=== PATIENT | female | born 1990 | race Caucasian/White ===

== ENCOUNTER 2018-09-30 09:00 | Outpatient (RCR) | payer MEDICAID, SELFPAY ==
--- NOTE | 2018-09-30 09:03 | BH.SGPN.GN ---
Behaviors/Verbalizations/Mental Status: []Client alert and oriented, casual dress, hygiene tended to. Eye contact good. Motor activity appropriate. Speech within normal limits. Affect constricted, mood anxious. Thoughts linear, logical, no signs of hallucinations or delusions. Reviewed client?s symptom tracker, no signs of suicidal ideation, plan, or intent as of today. Client Response/Progress/Benefit: []Pt was a passive participant, attentive to others and shared thoughts and feelings when elicited by therapist. Emotion for today is anxious/nervous. Pt reported she is seeking help through IOP because she feels constantly anxious and stress when she is around her boyfriend. Pt shared she feels her boyfriend is controlling and narcissistic. Pt stated she has noticed when she is not around her boyfriend she feels less anxious, but stated she has left him before however he will make her feel guilty so she gets back with him. Pt shared she recognizes this relationship is toxic and impacts her mental health but struggles with maintaining boundaries. Pt's first day in IOP. Pt seemed to benefit from expressing thoughts and being in a supportive environment. Continued IOP level of care recommended to increase self-awareness, increase healthy boundaries and prevent decompensation. Narrative Note: []
--- NOTE | 2018-09-30 10:07 | BH.SGPN.GN ---
Behaviors/Verbalizations/Mental Status: []Client alert and oriented, disheveled appearance. Eye contact good. Motor activity appropriate. Speech within normal limits. Affect constricted, mood depressed. Thoughts linear, logical, no signs of hallucinations or delusions. Client Response/Progress/Benefit: []Client responded well to session, engaged throughout activity, occasionally contributing to discussion. Provided insight regarding topic of social supports. Client shared there are barriers to seeking social supports such as lack of healthy supports and fear. However, there are also consequences of not having a support system such as feeling overwhelmed and ?mental health manifesting in physical ways.? Identified benefits of social support as not feeling alone and less stress. Client was engaged during the group activity and did well to assimilate on her first day. Client communicated with peers and made connections to her daily life. Appeared to benefit from gaining awareness of barriers that keep people from seeking social support as well as connecting with peers. Client?s first day of IOP. No progress to document. Client to continue IOP to prevent decompensation, increase healthy supports, and reduce severity of symptoms.
--- NOTE | 2018-09-30 13:31 | BH.COMM ---
Communication Note - Communication with Client Communication Note: Therapist followed up with client after group sessions ended as it was client's first day in IOP. Therapist answered client's questions and provided emotional validation and support.
--- NOTE | 2018-10-01 11:08 | BH.SGPN.GN ---
Behaviors/Verbalizations/Mental Status: [Pt eye contact good, casually dressed, motor activity appropriate, speech normal rate and tone, mood depressed, congruent affect, thoughts linear and intact - some evidence of rumination AEB returning to relationship concerns previously addressed, no evidence of delusions or hallucinations] Client Response/Progress/Benefit: [Pt receptive of session, provided input to discussion and engaged with fellow participants throughout. Pt actively listening as group made connections between barriers faced in the challenge activity and those present in utilizing social supports in daily life. She identified a major barrier for her is patience. Did well to provide some contribution to discussion about the different types of support and benefits of each type. She worked with the group to identify strategies for improving development of new supports and utilization of current supports. Pt seemed to benefit from discussion on how to increase supports from a support person who does not understand or is unaccepting of mental health. She displayed progress in identifying a type of support she would like to improve upon and creating actionable steps to promote follow-through. Indicated wanting to improve personal support to increase self-confidence and understanding of her own feelings. Expressed plans to do so by identifying and reaching out to new supports or old supports she would benefit from reconnecting with. Client to continue IOP level of care to prevent decompensation, improve symptom management, as well as increase self-confidence.] Narrative Note: []
--- NOTE | 2018-10-02 09:10 | BH.SGPN.GN ---
Behaviors/Verbalizations/Mental Status: [] Eye contact is good. Motor activity is appropriate. Appearance is casual. Speech is Appropriate. Mood is anxious. Affect is congruent. Thoughts are linear and logical. No evidence of psychosis. Reviewed daily check in sheet and no reports of suicidal ideations or intent. Client Response/Progress/Benefit: []p Pt was an active participant in group discussion. Emotion for today is anxious. Shared that she was anxious all day yesterday. Went to local [employer] with children and was unable to relax long enough to have any fun. Reports overwhelmed with people, the environment, and worry about kids getting hurt or abducted. Reports that she will ruminate extensively on worst case scenarios till it consumes her. Discussed her anxiety and the impact it has had on her life in more detail to the group. Group provided support and encouragement which pt benefited from. She discussed some relief since entering IOP stating its nice to know that I'm not alone. Will continue in IOP to prevent decompensation, stabilize mood, and increase coping skills. Narrative Note: []
--- NOTE | 2018-10-02 10:10 | BH.SGPN.GN ---
Behaviors/Verbalizations/Mental Status: []Client alert and oriented, casually dressed and groomed. Eye contact good. Motor activity appropriate. Speech within normal limits. Affect congruent to topic being discussed, mood anxious. Thoughts linear, logical, no signs of hallucinations or delusions. Client Response/Progress/Benefit: []Client responded well to session, providing occasional input. Client contributed to the discussion of how life is made of up different internal and external positive and negative forces and how those forces impact one?s mental health. Client shared it is easier to focus on external forces ?because we can blame them.? Client stated waiting for forces to change on their own ?makes you feel worse over time.? Client stated taking personal responsibility is needed for personal growth. Client identified examples of positive forces including healthy coping skills and personal effort. Client identified examples of negative forces to be toxic people and unmanaged mental health. Client participated in the activity and was both assertive and receptive to peers. Client appeared to benefit from gaining awareness of how positive and negative forces can cause growth. ?Client?s second day in IOP. Client report benefitting from connecting with peers and increasing awareness. However, client continues to report depression and anxiety symptoms that impact her functioning.
--- NOTE | 2018-10-02 11:14 | BH.SGPN.GN ---
Behaviors/Verbalizations/Mental Status: [Client alert and oriented, casually dressed and appropriate groomed. Eye contact good. Motor activity appropriate. Speech within normal limits. Affect congruent and mood euthymic. Thoughts linear, logical, no signs of hallucinations or delusions.] Client Response/Progress/Benefit: [Client willing to participate in activity and provided some input throughout. Pt did well to follow direction, give some input, and encourage fellow participants in group. Pt worked with group to identify positive and negative forces influencing group progress in the activity and did well to relate this back to daily life. Client completed reflection worksheet which identified positive and negative forces that impact mental wellness. Client noted positive forces as: her children, positive attitude, willingness to ask for help, and treatment. Identified negative forces as: negative thoughts, poor boundaries, isolation, toxic relationships, and lack of awareness. Client seemed to benefit from increased awareness of personal positive and negative forces in life and the impact they have on mental health and wellness. Progress noted in pt ability to identify positive forces of resilience factors supporting progress. Client to continue IOP level of care to continue to promote healthy change behaviors, improve ability to regulation emotions, and prevent decompensation.] Narrative Note: []
--- NOTE | 2018-10-04 10:30 | BH.SGPN.GN ---
Behaviors/Verbalizations/Mental Status: []Client alert and oriented, disheveled appearance. Eye contact good. Motor activity appropriate. Speech within normal limits. Affect congruent, mood depressed. Thoughts linear, logical, no signs of hallucinations or delusions. Client Response/Progress/Benefit: []Client responded well to session, active participant. Client appeared to connect with the topic of personal pitfalls and how they can prevent mental health progress. Client identified barriers to making mental health progress such as ignoring warning signs, lack of support, and minimizing symptoms. Client shared examples of personal pitfalls as unrealistic expectations and toxic supports. Client reported in order to overcome personal pitfalls ?you need motivation.? Client stated she is tired of being stuck and is realizing ?no one can make changes but me.? Client participated in the group activity and was able to use in the moment coping skills. Client reflected that self-awareness and communication are both needed in order to avoid falling into personal pitfalls. Client appeared to benefit from increasing self-awareness and applying in the moment coping. Client?s first week in IOP. Client reporting increased self-awareness. Client to continue IOP to prevent decompensation and reduce intensity of symptoms.
--- NOTE | 2018-10-04 11:30 | BH.SGPN.GN ---
Behaviors/Verbalizations/Mental Status: []Client alert and oriented, casually dressed and groomed. Eye contact good. Motor activity appropriate. Speech within normal limits. Affect constricted, mood depressed. Thoughts linear, logical, no signs of hallucinations or delusions. Client Response/Progress/Benefit: []Provided input throughout group discussion, was attentive and was seen nodding in agreement with group suggestions. Pt completed a worksheet where she identified her own personal pitfalls. Personal pitfalls included: lack of communication, needing to be right, high expectations of self, distorted thoughts, and giving up when things get hard. Group worked together to identify strategies to overcome personal and general pitfalls which included: actively participating in mental health treatment, setting realistic expectations, positive self-talk, utilizing support system, reflection on past experiences, identifying coping skills that are effective and not effective, reframing, and challenging negative thoughts. Client identified other strategies that she can use to be understanding her emotions, breathing, and being patient. Benefited from identifying personal and general pitfalls and strategies to over these pitfalls. Will continue in IOP to stabilize mood. Staff continues to provide support and education regarding depression and anxiety as well as encourage generalization of healthy skills. Narrative Note: []
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
--- NOTE | 2018-10-04 15:16 | BH.MTP_ITS ---
[facility] Treatment Plan - Patient Information Program Physician:: Tj Howe Primary Therapist:: Martina Mccord - Psychiatric Diagnoses Psychiatric Diagnoses:: Major depression, recurrent, severe F 33.2; generalized anxiety disorder; somatic symptom disorder; PTSD; illness anxiety disorder; Borderline personality disorder Diagnosis Code(s):: F33.2 - Estimated LOS Estimated LOS (in weeks):: 6 Problem/Goal #1 - Problem/Goal #1 Stated Goal:: Client will increase emotional regulation and reduce intensity and duration of anxiety symptoms. Description of Barriers: Client identifies her current relationship with her boyfriend as toxic but shares feeling unable to leave him which may negatively impact client's mental health and functioning. Client has a history of complex trauma and childhood adverse experiences, and per her report, she has never received trauma therapy or worked through her trauma. Client continues to experience mood dysregulation, fear of being alone, and hypervigilance. Client struggles with recognizing her warning signs and triggers. Client reports guilt about setting boundaries and how her mental health has impacted her children. Client states she sees herself doing some of the same parenting techniques her parents used on her, and client is worried she will continue the cycle. Client shared limited social supports besides her sister which increases isolation and depressed mood. Additionally, client has a blood clotting disorder and healthy anxiety about herself and her family. Functional Impact: Client is a 28-year-old female with a history of depression, anxiety, and PTSD. Client presents to [facility] with worsening depression and anxiety since 05/2018. Client reports significant worrying, fear of being alone, panic attacks, and passive thoughts of . Client shared she is not currently able to sleep alone in her house due to fear and anxiety. Client endorses erratic appetite, worthlessness, hopelessness, decreased sleep, lack of motivation, and rumination. Client reports long-standing history of anger issues and emotional dysregulation. Client shared she is often worried about her health and fears she will from some medical issue. Client reports her symptoms are impacting her ability to function at her baseline as well as her social, occupational, and familial functioning. Goal Relevant Strengths/Supports: Client presents as a kind, empathetic, and receptive individual who reports motivation to change her mental health and functioning. Client shared I want to change I don't want to keep living like this. Client reported she is willing to learn and try new coping skills. Client demonstrates resilience as she has been through numerous adverse experiences in her life. Client's sister is supportive and encourages client to improve her mental health. Client shared her tricia is a strong support. Client has an outpatient therapist and is open to additional mental health resources. - Objectives Objective #1 Stated Objective: Client will identify 2-3 cognitive distortions or mistaken beliefs that lead to rumination and health anxiety and learn 2-3 ways to manage these thoughts to reduce symptoms. Interventions: Therapist will provide education on the most common cognitive distortions and teach client the connection between thoughts, emotions, and feelings. Therapist will assist client in identifying, challenging, and replacing dysfunctional thoughts with positive, more realistic thoughts. Therapist will use CBT and DBT techniques to help client gain awareness of thinking errors and learn how to more effectively handle negative thoughts. Discharge Criteria: Client will have accomplished this goal when can identify at least 2 cognitive distortions and at least 2 coping skills to manage negative thoughts. Target Date: 11/11/18 Review Date: 10/30/18 Status: open Objective #2 Stated Objective: Client will be able to explain common stress reactions and symptoms related to trauma and learn 2-3 coping skills to manage symptoms. Interventions: Therapist will provide education on trauma and explain impact trauma can have on development. Will help client explore personal symptoms and warning signs of stress and trauma. Therapist will teach client coping skills to improve emotional regulation, mindfulness, and distress tolerance. Therapist will help client get connected with additional trauma-focused services, should client agree. Discharge Criteria: Client will have met this objective when can identify common stress reactions to trauma and report using at least 2 coping skills to manage symptoms. Target Date: 11/11/18 Review Date: 10/30/18 Status: open Objective #3 Stated Objective: Client will identify 2-3 anxiety triggers and 2 calming coping skills to use when feeling anxious to reduce anxiety as shown by reduced DSM-5 cross cutting scores. Interventions: Therapist will help client increase awareness of anxiety triggers and educate client on the ways anxiety impacts overall health. Therapist will teach client various calming strategies to promote emotional regulation and reduction of anxiety. Therapist will discuss the importance of self-care to avoid burnout and reduce stress while helping client establish clearer boundaries with supports. Discharge Criteria: Client will have accomplished this goal when can report at least 2 triggers for anxiety and state using 2 calming strategies to manage symptoms. Client will have also accomplished this goal when her DSM-5 scores have reduced. Target Date: 11/11/18 Review Date: 10/30/18 Status: open Problem/Goal #2 - Problem/Goal #2 Stated Goal:: Client will reduce depression, anhedonia, and low motivation due to Major Depressive Disorder through the Intensive Outpatient Program. Description of Barriers: Client identifies her current relationship with her boyfriend as toxic but shares feeling unable to leave him which may negatively impact client's mental health and functioning. Client has a history of complex trauma and childhood adverse experiences, and per her report, she has never received trauma therapy or worked through her trauma. Client continues to experience mood dysregulation, fear of being alone, and hypervigilance. Client struggles with recognizing her warning signs and triggers. Client reports guilt about setting boundaries and how her mental health has impacted her children. Client states she sees herself doing some of the same parenting techniques her parents used on her, and client is worried she will continue the cycle. Client shared limited social supports besides her sister which increases isolation and depressed mood. Additionally, client has a blood clotting disorder and healthy anxiety about herself and her family. Functional Impact: Client is a 28-year-old female with a history of depression, anxiety, and PTSD. Client presents to [facility] with worsening depression and anxiety since 05/2018. Client reports significant worrying, fear of being alone, panic attacks, and passive thoughts of . Client shared she is not currently able to sleep alone in her house due to fear and anxiety. Client endorses erratic appetite, worthlessness, hopelessness, decreased sleep, lack of motivation, and rumination. Client reports long-standing history of anger issues and emotional dysregulation. Client shared she is often worried about her health and fears she will from some medical issue. Client reports her symptoms are impacting her ability to function at her baseline as well as her social, occupational, and familial functioning. Goal Relevant Strengths/Supports: Client presents as a kind, empathetic, and receptive individual who reports motivation to change her mental health and functioning. Client shared I want to change I don't want to keep living like this. Client reported she is willing to learn and try new coping skills. Client demonstrates resilience as she has been through numerous adverse experiences in her life. Client's sister is supportive and encourages client to improve her mental health. Client shared her tricia is a strong support. Client has an outpatient therapist and is open to additional mental health resources. - Objectives Objective #1 Stated Objective: Client will improve self-care,boundaries, and increase social activities to at least one additional activity per week. Interventions: Therapist will help client explore social connection opportunities, and as well as activities that promote accomplishment, enjoyment, and closeness. Therapist will provide education on maintenance cycles for depression and help client learn how to break unhealthy maintenance cycles. Therapist will teach client about healthy versus unhealthy supports and how to set boundaries to improve mental wellbeing. Therapist will encourage client to seek positive social support. Discharge Criteria: Client will have achieved this objective when can identify attending at least one social activity of interest weekly and report increased boundary setting. Target Date: 11/11/18 Review Date: 10/30/18 Status: open Objective #2 Stated Objective: Client will learn and utilize 2-3 healthy coping strategies to better manage depressive symptoms and anger as shown by reduced DSM-5 scores. Interventions: Through group and individual sessions, therapist will help client identify triggers and warning signs of depression and emotional dysregulation including emotional, physical, and behavioral changes. Therapist will teach client various coping skills to manage her symptoms and give client tangible resources to use to regulate emotions. Therapist will use cognitive restr ucturing techniques and help client gain awareness of negative thoughts that reinforce depressive cycles. Therapist will help client incorporate behavioral activation and assist client in setting SMART goals. Discharge Criteria: Client will have met this goal when she can report learning and using at least 2 coping skills to manage depressive symptoms and show a reduction in DSM-5 symptoms. Target Date: 11/11/18 Review Date: 10/30/18 Status: open
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
--- NOTE | 2018-10-04 15:18 | BH.DR.ITP ---
Initial Treatment Plan - Patient Information Visit Information: ADMISSION DATE: 09/30/18 EXPECTED LOS: 4-6 weeks Diagnoses:: Major depression; GILMAR; somatic symptom disorder; BPD - Problems/Symptoms Problem #1:: depression Symptom:: sadness, anhedonia; lack of motivation and energy Problem #2:: anxiety Symptom:: worry, feeling overwhelmed, stressed out, feeling anxious Problem #3:: somatic symptom disorder Symptom:: constantly worried about her health, dying, going to doctors, overwhelmed by health concerns
--- NOTE | 2018-10-07 09:05 | BH.SGPN.GN ---
Behaviors/Verbalizations/Mental Status: [] Eye contact is good. Motor activity is appropriate. Appearance is casual. Speech is Appropriate. Mood is anxious. Affect is congruent. Thoughts are linear and logical. No evidence of psychosis. Reviewed daily check in sheet and no reports of suicidal ideations or intent. Client Response/Progress/Benefit: [] Pt was an active participant in group discussion. Emotion for today is anxious. Shared that she spent some time with significant other this past weekend which was positive. She was able to complete activities w/o overwhelming anxiety however her anxiety did limit herself in certain situations. Discussed a family stressor regarding her niece which caused increased stress, worry, and anger. Also led her to limit her daughter's interaction with niece. Pt admitted to getting angry and protective of her family however believes that she managed her emotions better than she would have in the past. Discussed some coping skills that she utilized to ensure that her emotions did not lead to unhealthy reactions and behaviors. Benefited from group support and encouragement. Will continue in IOP to maintain safety, prevent decompensation, and stabilize mood. Narrative Note: []
--- NOTE | 2018-10-07 10:05 | BH.SGPN.GN ---
Behaviors/Verbalizations/Mental Status: []Pt eye contact good, casually dressed, motor activity appropriate, speech normal rate and tone, mood dysthymic, constricted affect, thoughts linear and intact, no evidence of delusions or hallucinations. Client Response/Progress/Benefit: []Client passive participant, providing limited input during discussion, however appeared to attentively listen to peers. Client nodded that viewing situations as impossible can negatively impact one?s mental health. Client agreed with peers comments that seeing things as impossible sets you up to not try new things or to overcome difficult situations. Client identified sometimes she views raising her kids right as an impossible situation. client agreed with others comments that it seems impossible because many people have different definitions of what is right in regards to raising children. Client engaged in the group activity and the group did not complete the activity during second group. Despite lack of success, client did not appear to fall into fixed thinking pitfalls and stayed engaged. Client appeared to benefit from gaining awareness how viewing situations as impossible can negatively impact mental health progress. Client to continue IOP level of care to stabilize moods, increase healthy coping, and prevent decompensation. Narrative Note: []
--- NOTE | 2018-10-07 11:10 | BH.SGPN.GN ---
Behaviors/Verbalizations/Mental Status: [Client maintained good eye contact, casually dressed and appropriate grooming, motor activity appropriate, speech normal rate and tone, mood dysthymic and anxious, affect congruent, thoughts linear, logical, no evidence of delusions or hallucinations.]] Client Response/Progress/Benefit: [Pt attentive, did well to participate in discussion and growth mindset reflection activity. She provided positive feedback and asked relevant questions throughout. Pt brainstormed with the group on how fixed mindset thoughts experienced in the activity impacted ability to complete the task at hand. Pt indicated thoughts of ?this is too stressful? caused her to become frustrated and linked this with decreased effort. Worked to identify important components of a growth mindset such as improving ability to set healthy boundaries rather than being all or nothing with them. Pt expressed having difficulties in using growth mindset thoughts, however did well to apply cognitive restructuring to reframe fixed thoughts of ?I?m always going to be sick? with growth mindset thought of ?I can continue to learn to love myself.?. Benefitted from discussing benefits of growth mindset and strategies for reframing fixed thoughts. Progress in pt ability to challenge negative thoughts about self. Continued IOP tx recommended to prevent decompensation, increase application of thought challenge skills and improve self-esteem, and continue to decrease intensity and severity of depression.] Narrative Note: []
--- NOTE | 2018-10-09 09:05 | BH.SGPN.GN ---
Behaviors/Verbalizations/Mental Status: [] Eye contact is good. Motor activity is appropriate. Appearance is casual. Speech is Appropriate. Mood is irritable. Affect is congruent. Thoughts are linear and logical. No evidence of psychosis. Reviewed daily check in sheet and no reports of suicidal ideations or intent. Client Response/Progress/Benefit: [] Pt was an active participant in group discussion. Emotion for today is excited however reports being burnt out with work and stressors. Attempting to set boundaries with SO however lieberman not believe that this is going well. Increased conflict. Feels overwhelmed at home and work with little time for herself. Group provided feedback on trying self-care strategies however pt views these as selfish. Group challenged this belief. Pt appeared receptive. Continued anxiety, fear, and irritability which are impacting daily functioning and responsibilities. Utilizes newly learned skills at time however not consistent. Benefited from group feedback. Will continue in IOP to increase coping skills for depression/anxiety and prevent decompensation. Narrative Note: []
--- NOTE | 2018-10-09 10:09 | BH.SGPN.GN ---
Behaviors/Verbalizations/Mental Status: []Client alert and oriented, casually dressed and groomed. Eye contact good. Motor activity appropriate. Speech within normal limits. Affect congruent, mood dysthymic. Thoughts linear, logical, no signs of hallucinations or delusions. Client Response/Progress/Benefit: []Pt receptive of session AEB pt listening to others, taking notes, and providing input at times. Pt appeared to connect with various definitions of resilience provided by the group as well as ideas for how resilience can have positive impacts mental health and wellness. Pt stated when she is angry sometimes she is inflexible with her thinking which results in her breaking. Pt engaged in small group discussion about the various strategies that can help strengthen one's resilience. Pt appeared to connect with others comments about importance of self-awareness to build resilience because if know personal barriers then know what you can do to improve situation. Pt seemed to benefit from increased awareness of various components that can contribute to increased resilience. Continued IOP recommended to prevent decompensation, increase healthy coping skills, and decrease depression. Narrative Note: []
--- NOTE | 2018-10-09 11:12 | BH.SGPN.GN ---
Behaviors/Verbalizations/Mental Status: []Client alert and oriented, casually dressed and groomed. Eye contact good. Motor activity appropriate. Speech within normal limits. Affect congruent, mood euthymic. Thoughts linear, logical, no signs of hallucinations or delusions. Client Response/Progress/Benefit: []Client responded well to session, positive contributions. Client engaged in the group activity. Client reported at first, she was thought the group could not accomplish the goal. However, the group stayed resilient and used different ideas to be successful. Client shared ?we didn?t give up? which can also help people be resilient in their daily lives. Client was given a stress ball as a reminder of resilience. On her stress ball, client wrote ?If God gets you to it, he?ll get you through it.? Client shared this will remind her to have hope and optimism. Client reported she wants to work on increasing her acceptance that change is a part of living to further improve personal resilience. Client shared she will try to work on this by setting small goals and practicing change. Client appeared to benefit from identifying personal resilience factors. Progress noted as client reports increased self-awareness of barriers, but she continues to struggle with ambivalence to change. Client to continue IOP to prevent decompensation and increase positive supports.
--- NOTE | 2018-10-10 09:05 | BH.SGPN.GN ---
Behaviors/Verbalizations/Mental Status: []Client alert and oriented, casually dressed and groomed. Eye contact good. Motor activity appropriate. Speech within normal limits. Affect constricted, mood tired, euthymic. Thoughts linear, logical, no signs of hallucinations or delusions. Reviewed client?s symptom tracker, no risk for suicidal ideation, plan, or intent as of 10/10/18. Client Response/Progress/Benefit: []Client responded well to session, providing emotional support to peers. Client reports feeling ?tired, but positive? today. Client?s mental health wins include going to work today, learning new skills, her kids feeling better, and client feeling more optimistic. Client?s current stressor is she is trying to quit smoking ?cold turkey? as she realizes how much smoking is impacting her physical and mental health. The group provided client with ideas to quit smoking and therapist informed client of the smoking cessation group at [facility]. Client was receptive to the feedback and shared she will try out the ideas. Client appeared to benefit from reflecting on wins and receiving feedback. Progress noted as client reports following through with her goals and using healthier coping skills. Client to continue IOP as she continues to struggle with boundary setting and managing emotions consistently.
--- NOTE | 2018-10-10 11:20 | BH.SGPN.GN ---
Behaviors/Verbalizations/Mental Status: []Client alert and oriented, casually dressed and groomed. Eye contact good. Motor activity appropriate. Speech within normal limits. Affect congruent, mood dysthymic. Thoughts linear, logical, no signs of hallucinations or delusions. Client Response/Progress/Benefit: []Client was an active participant throughout session, providing good feedback and encouragement during the activity. Client worked with the group to complete the challenge activity. Client stated she wanted to quit during the challenge because feeling overwhelmed and stressed. Client reported she chose to stick with the challenge activity because wanted to help her teammates. Group identified barriers of stress management to include taking on the biggest stressor at once, not asking for help, and avoidance. Client actively listening during discussion about the 4 A's of managing stress. Client seemed to benefit from increased awareness of the impact of stress on mental health and increasing repertoire of stress management strategies. Will continue IOP tx to increase healthy coping, challenge thoughts and prevent decompensation.
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
--- NOTE | 2018-10-11 09:05 | BH.SGPN.GN ---
Behaviors/Verbalizations/Mental Status: []Client alert and oriented, disheveled appearance. Eye contact good. Motor activity appropriate. Speech within normal limits. Affect congruent, mood euthymic, anxious. Thoughts linear, logical, no signs of hallucinations or delusions. Reviewed client?s symptom tracker, no risk for suicidal ideation, plan, or intent as of 10/11/18. Client Response/Progress/Benefit: []Client responded well to session, providing positive support to peers. Client reports feeling ?a pinch of anxious? today. Client shared she feels anxious because ?I know I have to be better with my health? which is overwhelming to client. Client is attempting to improve her eating habits and reduce smoking. The group helped client talk about the importance of setting small goals. Client?s mental health wins included using in the moment coping skills to manage anxiety and having a conversation with her boyfriend about client?s needs. Client shared she is starting to realize ?I need to change without him.? Client appeared to benefit from connecting with peers. Progress noted as client?s mood has improved since last week. However, client continues struggle with her current unhealthy relationship which may hinder progress.
--- NOTE | 2018-10-11 10:18 | BH.SGPN.GN ---
Behaviors/Verbalizations/Mental Status: []Client alert and oriented, casually dressed and groomed. Eye contact fair. Motor activity appropriate. Speech within normal limits. Affect congruent to topic being discussed, mood euthymic. Thoughts linear, logical, no signs of hallucinations or delusions. Client Response/Progress/Benefit: []Client responded well to session, attentive and participating in small group discussion. Group identified the benefits to setting boundaries as well as the consequences of not setting healthy boundaries. Client stated she is getting better at saying no to others because recognizes the negative impact saying yes to everyone has on her mental health. Client reported she does believe it is her responsibility to hold her family together, which does lead to client not setting boundaries at times. Client engaged during discussion of the different types of boundaries and engaged in the self-assessment activity. Client seemed to benefit from increased awareness how poor boundaries can negatively impact mental health. Client to continue IOP tx to continue use of healthy coping skills, prevent decompensation, and challenge distorted thoughts. Narrative Note: []
--- NOTE | 2018-10-11 11:24 | BH.SGPN.GN ---
Behaviors/Verbalizations/Mental Status: [Client alert and oriented, casual dress, hygiene appropriate. Eye contact good. Motor activity appropriate. Speech within normal limits. Affect congruent, mood euthymic. Thoughts linear, logical, no signs of hallucinations or delusions. ] Client Response/Progress/Benefit: [Pt responded well to session, semi-active participant AEB willingness to provide input and connect with insights provided by fellow participants throughout. Pt did well to engage in the boundary self-assessment activity and worked with group to further process. Pt discussed that she has been becoming much more aware of how her difficulties in maintaining healthy boundaries with toxic supports has impacted her anxiety and reinforced negative thoughts. Noted that she has been working on improving boundary setting skills but continues to struggle with consistency. Appeared to benefit from group discussion on strategies for further improving personal boundaries. Identified wanting to improve her ability to set and maintain healthy boundaries with others, specifically in regard to reducing time spent with unhealthy supports and improving her ability to say ?no?. Progress noted in pt ability to identify impact of current boundaries on mental health progress and emotion regulation skills. Pt to continue IOP tx to maintain gains made, improve communication and boundary setting skills, and continue to promote healthy change behaviors.] Narrative Note: []
--- NOTE | 2018-10-14 10:25 | BH.SGPN.GN ---
Behaviors/Verbalizations/Mental Status: []Client alert and oriented, causally dressed and groomed. Eye contact good. Motor activity appropriate. Speech within normal limits. Affect constricted, mood dysthymic. Thoughts linear, logical, no signs of hallucinations or delusions. Client Response/Progress/Benefit: []Client engaged in session AEB client contributing input during discussion and listening attentively to others. Client stated when faced with a difficult moment how one thinks about the situation can impact the outcome. Connected with discussion on how coping with external crisis by using unhealthy coping skills could lead to personal crisis. Client completed the personal warning signs worksheet and identified crisis warning signs to include: increased racing thoughts and isolation. Benefited from group by increasing awareness of crisis and personal warning signs. Will continue IOP tx to increase healthy coping and prevent decompensation. Narrative Note: []
--- NOTE | 2018-10-14 11:25 | BH.SGPN.GN ---
Behaviors/Verbalizations/Mental Status: []Client alert and oriented, casually dressed and groomed. Eye contact good. Motor activity appropriate. Speech within normal limits. Affect congruent, mood euthymic. Thoughts linear, logical, no signs of hallucinations or delusions. Client Response/Progress/Benefit: []Client responded well to session as evidenced by client participating when prompted and listening attentively to others. Client identified her warning signs for crisis and gained further awareness of her earliest warning signs. Client?s top three early warning signs were increased anxiety, increased body temperature, and ?feeling panicky.? Client recognized that awareness of these warning signs can prevent further crisis and help client utilize healthy coping skills to break the cycle. Client created a crisis action plan to help client better manage warning signs for crisis. Client?s plan included coping skills such deep breathing, positive self-talk, and healthy distractions. Client selected three items that will help her remember these crisis interventions including a pipe stripper, flower, and a clothespin. Client appeared to benefit from creating a crisis action plan and increasing her self-awareness. Client to continue IOP to increase repertoire of healthy coping skills and increase emotional regulation.
--- NOTE | 2018-10-14 15:04 | BH.MDN_ITS ---
Multi-Disciplinary Note - Note 45-min Individual Time Started:: 09:21 Date: 10/14/18 Purpose of session/treatment goals addressed:: The purpose of this session was to process current symptoms, stressors, and triggers. Another goal was to practice grounding coping skills. Other topics included relationships. Eye Contact:: Good Motor Activity:: Appropriate Appearance:: Casual Speech:: Appropriate Mood:: Anxious Affect:: Congruent Thoughts:: Linear, Logical, No evidence of hallucinations/delusions noted Staff Interventions:: Therapist used active listening and open-ended questions to explore client's current stressors, symptoms, and triggers. Therapist helped client gain awareness of how her stressors are impacting her emotional, cognitive, and behavioral functioning. Therapist processed two recent triggers with client and identified coping skills she could use to help work through her emotions. Therapist discussed healthy versus unhealthy relationships. Therapist led client in a guided imagery activity to practice grounding and mindfulness. Therapist gave client homework to complete a coping skills log and to write a letter to help confront her feelings towards her father. Client Response:: Client responded well to session, open to meeting with therapist. Client reported over the weekend she had a meltdown which after further processing, client was able to recognize this came from unmanaged stress. Client reported she was stressed about a incident at work, reaching out to her father, cutting back on smoking, and her significant other. Client reported she was having a lot of anxious thoughts and I was dwelling a lot. Client shared she has been trying to stay positive, but she finds it hard to challenge her thinking. Client able to process through two stressors she had been dwelling on with the help of therapist. Client had asked her father to come into IOP, so she could address boundaries and underlying emotions. However, client's father cancelled, and client shared is it weird I was relieved. With therapist elicitation, client recognized she was not yet ready to confront her father, but she was open to writing him a letter and not sending it. Client also open to practicing calming coping skills in the moment to reduce anxiety. Client shared it was kind of corny, but it helped. Client receptive to completing the coping skills log for homework. Risks/Concerns:: Client denies any suicidal ideation, plan, and intent as of 10/14/18. Progress Toward Goals/Plan:: Client is making progress towards her treatment goals as shown by her report of trying to implement healthier coping skills. Client reported she had one meltdown over the weekend due to self-reported lack of awareness of how stressed she was. Client continues to struggle with ambivalence in her current relationship as the couple went to a anglican counselor this Sunday which is progress. However, client continues to report difficulty regulating her emotions and taking care of her mental health when around her significant other. Client also reports struggling with having awareness of warning signs and triggers which makes using coping skills difficult at times. Client open to completing a coping skills log for homework. Client to continue IOP to prevent decompensation, increase awareness, and improve mood stability. Time Stopped:: 10:00
== END 2018-10-15 23:59 ==
LOC: BHIOP 09:00
PROVIDERS: Family Provider Family Medicine; PCP Family Medicine; Referring Provider Psychiatry & Neurology Psychiatry; Visit Provider Psychiatry & Neurology Psychiatry
DX: F33.2 Major depressive disorder, recurrent severe without psychotic features (principal); F41.1 Generalized anxiety disorder; F45.9 Somatoform disorder, unspecified; F41.8 Other specified anxiety disorders; Z63.0 Problems in relationship with spouse or partner; F60.3 Borderline personality disorder; E66.9 Obesity, unspecified; Z86.718 Personal history of other venous thrombosis and embolism; Z79.899 Other long term (current) drug therapy; Z72.0 Tobacco use; Z62.810 Personal history of physical and sexual abuse in childhood; Z62.811 Personal history of psychological abuse in childhood; Z91.410 Personal history of adult physical and sexual abuse
CPT/HCPCS: 99204; H0035; H2012; H2020; 90832; 90834

== ENCOUNTER 2018-10-16 08:46 | Outpatient (RCR) | payer MEDICAID, SELFPAY ==
[2016-12-14 21:13] VITALS: BMI 43.7
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
--- NOTE | 2018-10-16 10:05 | BH.SGPN.GN ---
Behaviors/Verbalizations/Mental Status: [] Eye contact is good. Motor activity is appropriate. Appearance is casual. Speech is Appropriate. Mood is depressed. Affect is flat. Thoughts are linear and logical. No evidence of psychosis. Client Response/Progress/Benefit: [] Pt was an active participant in group discussion and activity. Worked together with the group to define and identify difference between internal and external conflict. Discussed the benefits of conflict which includes; increases communication, personal growth, conflict addresses issues, and appropriate conflict can increase relationships and improve mental health. Pt worked with group to identify barriers to overcoming conflict which included; fear, perceived failure, belief that truth or conflict will hurt others, dwelling on interactions, catastrophizing conflict, and belief that conflict is failure in relationships. Attentive during psychoeducation on different conflict styles such as avoiding, accommodating, competing, and collaborative. Reviewed benefits and drawbacks to each style. Benefited as she was able to identify and define conflict as well as increase awareness of how conflict style impacts her mental health. Will continue in IOP to maintain safety, prevent decompensation, and increase daily coping skills for anxiety/depression Narrative Note: []
--- NOTE | 2018-10-16 11:20 | BH.SGPN.GN ---
Behaviors/Verbalizations/Mental Status: []Client alert and oriented, casually dressed and groomed. Eye contact good. Motor activity appropriate. Speech within normal limits. Affect constricted-looking irritable, but reporting feeling happy, mood euthymic. Thoughts linear, logical, no signs of hallucinations or delusions. Client Response/Progress/Benefit: []Client responded well to session, active participant. Client further processed her conflict resolution style. Client reported she is mostly competing or accommodating. Client shared ?either I?m always right or I go with the flow too much.? Client identified benefits of using both styles, however, client recognizes they have negatively impacted her mental health and relationships. Client was encouraged to practice being collaborative during the active. Client listened to others? ideas, but she did not hesitant to share her perspective. Client helped the group identify things that positively and negatively impact conflict resolution. Client agreed with group that good communication and focusing on the big picture helped effectively resolve conflict. Client helped the group identify strategies to better manage conflict and set a goal to listen more when she is in a conversation. Client appeared to benefit from learning conflict resolution strategies and increasing self-awareness. Progress noted as client reports setting boundaries with her significant other, but she shares history of struggling to maintain boundaries which could impact her mental health.
--- NOTE | 2018-10-18 09:06 | BH.SGPN.GN ---
Behaviors/Verbalizations/Mental Status: []Client alert and oriented, casually dressed and groomed. Eye contact good. Motor activity appropriate. Speech within normal limits. Affect full, mood euthymic, anxious. Thoughts linear, logical, no signs of hallucinations or delusions. Reviewed client?s symptom tracker, no risk for suicidal ideation, plan, or intent as of 10/18/18. Client Response/Progress/Benefit: []Client responded well to session, active participant. Client reports feeling ?anxious? today due to having ?a lot on my mind.? Client recently set boundaries with her boyfriend and how the two are . Client shared ?I needed to work on me and he wouldn?t let me.? Client reported although she feels proud for setting the boundary, she continues to feel ambivalent and struggles with maintaining the boundary when he texts client. The group provided positive encouragement and ideas. Client?s mental health wins include client?s successful efforts in cutting down smoking and eating better. Client also participated in a walking 5k last night with friends. Client reported she feels better mentally when she is making healthier choices. Client appeared to benefit from receiving supportive feedback from peers. Progress noted in client?s boundary setting and increased use of healthy coping skills. Client to continue IOP to prevent decompensation and further promote mood stability.
--- NOTE | 2018-10-18 11:02 | BH.NOTE ---
BH: Inpatient Note - Notes Behavioral Health Inpatient Note: During client-nurse assessment, Catherine noted that she has some concern that she may have a UTI. Client reports subjective lower abdominal pain, urinary frequency with intermittent burning, intermittent CVA tenderness, and cloudy urine. Client notes that she plans to go to the walk-in clinic at her doctor's office on Sunday when she has time. This nurse encouraged client to leave IOP and be seen today, given that she has to be at work at 1300. Client was agreeable to this plan, and left to be evaluated. Jacinto Cook, MSN, RN
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
--- NOTE | 2018-10-21 09:05 | BH.SGPN.GN ---
Behaviors/Verbalizations/Mental Status: []Client alert and oriented, casually dressed and groomed. Eye contact good. Motor activity appropriate. Speech within normal limits. Affect congruent, mood euthymic, anxious. Thoughts linear, logical, no signs of hallucinations or delusions. Reviewed client?s symptom tracker, no risk for suicidal ideation, plan, or intent as of 10/21/18. Client Response/Progress/Benefit: []Client responded well to session, attentive and providing encouragement to peers. Client reports feeling ?anxious? today due to ongoing stressors with her boyfriend. Client identified her positives as not smoking in three days, getting a raise at work, and walking a 5k with her sister this weekend. Client shared she has been using prayer, positive self-talk, and opposite action to cope with her urges to smoke and manage stress. Client reported she is feeling ?panicky? because she continues to have relationship issues with her boyfriend. Client stated she is aware that she could benefit from ending the relationship, but she feels conflicted. Client appeared to benefit from connecting with peers and verbalizing her stressors. Progress noted in client?s reduced use of unhealthy coping skills and increased self-awareness. However, client continues to struggle with mood instability and interpersonal relationship issues. Client to continue IOP to improve daily functioning and further reduce symptoms.?
--- NOTE | 2018-10-21 10:12 | BH.SGPN.GN ---
Behaviors/Verbalizations/Mental Status: [Pt alert and oriented, casually dressed. Eye contact good. Motor activity appropriate, at times fidgeting. Speech within normal limits. Affect congruent, mood dysthymic and anxious. Thoughts linear, logical, no signs of hallucinations or delusions.] Client Response/Progress/Benefit: [Pt responded well to session, attentive and providing some input throughout. Pt connected with discussion on different types of anxiety, as well as the difference between ?normal? anxiety and anxiety disorders. When processing quote pt stated anxiety has prevented her from advocating for her own needs and maintained unhealthy relationships. Pt helped the group identify examples of the various ways anxiety manifests and symptoms associated with thoughts, physical symptoms, and safety behaviors. Pt gained awareness of personal physical symptoms which included: racing heart, chest tightness, tense muscles, nausea, and clenched jaw. Pt identified avoiding anxious situations, lashing out in anger, shutting down, and isolating as safety behaviors pt has engaged in that provide short term relief but increase anxiety over time. Pt appeared to benefit from gaining insight to safety behaviors and how anxiety manifests itself, as well as harmful impact of safety behaviors on mental health. Appears to be progressing with increasing awareness of mental health symptoms and impact on functioning. Will continue IOP to promote continued skill application, improve boundaries, improve mood stability, and prevent decompensation.] Narrative Note: []
--- NOTE | 2018-10-21 11:15 | BH.SGPN.GN ---
Behaviors/Verbalizations/Mental Status: []Pt eye contact good, casually dressed, motor activity appropriate, speech normal rate and tone, mood anxious, congruent affect, thoughts linear and intact, no evidence of delusions or hallucinations. Client Response/Progress/Benefit: []Client responded well to session, listening attentively to others and providing input at times. Client connected with peers during discussion about physical symptoms experience when anxious including chest tightening, rapid heart beat, and tense muscles. Client stated isolation and avoidance are her safety behaviors. Client agreed with peers that one cannot prevent anxious thoughts from occurring, but can learn strategies to manage anxiety. Client appeared to connect with mindfulness and the different ways one can practice mindfulness. Client reported she currently uses 5 senses, positive self-talk, and breathing techniques as her healthy strategies to manage anxiety. Client created a mindfulness ?menu? and reported she plans to try self-care, positive self-talk, and smelling calming scents as mindfulness and relaxation techniques to manage anxiety. Client appeared to benefit from practicing in the moment mindfulness techniques. Progress noted as client is showing increased self-awareness and setting boundaries. Client to continue IOP level of care to maintain gains, challenge and reframe distorted thought patterns and prevent decompensation. Narrative Note: []
--- NOTE | 2018-10-23 11:23 | BH.SGPN.GN ---
Behaviors/Verbalizations/Mental Status: [Pt eye contact good, casually dressed, motor activity appropriate, speech normal rate and tone, mood anxious and dysthymic, congruent affect, thoughts linear and intact - some evidence of rumination, no evidence of delusions or hallucinations.] Client Response/Progress/Benefit: [Pt receptive of session, provided input throughout discussion on Social Supports. Pt worked with the group to make connections between the challenge activity and utilizing social supports in daily life. Reflected that a barrier in using current supports is feeling like a burden or as though supports don?t understand. She contributed to discussion on different types of support and benefits each can provide. Pt noted that protestant can provide spiritual support. Pt worked with the group to identify strategies for developing new and enhancing current supports. Pt benefited from identifying a type of support she would like to improve and how this would aid in progress towards improving her own mental health. She indicated wanting to enhance professional supports to better identify problems and learn new coping skills. Plans to do so through opening up and continuing with counseling services. Pt to continue IOP level of care to prevent decompensation, reduce use of distorted thought patterns, and maintaining stability.] Narrative Note: []
--- NOTE | 2018-10-23 14:23 | BH.MDN ---
Multi-Disciplinary Note - Note 45-min Individual Time Started:: 12:25 Date: 10/23/18 Purpose of session/treatment goals addressed:: The purpose of this session was to address current triggers, stressors, and symptoms. Another goal was to identify coping skills to manage stress. Other topics included trauma reactions and social supports. Eye Contact:: Good Motor Activity:: Appropriate Appearance:: Disheveled Speech:: Rambling Mood:: Anxious Affect:: Congruent - tearful at one point Thoughts:: Racing, Circular Staff Interventions:: Therapist used active listening and open-ended questions to explore client?s current stressors, triggers, and symptoms. Therapist praised client for her consistent efforts in using coping skills and cutting back on smoking. Therapist provided psychoeducation on trauma and explained how trauma-focused therapy could benefit client, and her relationship with her children, in her mental health recovery. Therapist taught client mindfulness and grounding techniques to help client feel present and manage anxiety and PTSD. Therapist brought awareness to ambivalent thinking and helped client see the costs and benefits of boundary setting with people in her life. Therapist assisted client in identifying stress management techniques to use today. Therapist helped client set up an appointment at [facility] for herself and her children. Client Response:: Client responded well to session, open to meeting with therapist. Client reported she currently feels overwhelmed and stressed about numerous issues in her life. Client continues to feel stress and conflicting feeling about leaving her boyfriend. On top of this, client is struggling with parenting and a recent trauma trigger. Client shared she did not have good role models as parents, so she tends to revert to what she knows-yelling. Client became tearful and shared I don't want to be like my parents. Client receptive to therapist's support and discussion of trauma responses. Client reported feeling more normal after psychoeducation. Client receptive to getting family therapy and parenting classes. Client able to challenge conflicting thoughts and emotions about her recent breakup and reported acknowledgement that if she does not maintain the boundary she will go back to the way I was. Client also reports stress due to work being busy this week, but she was able to talk herself through it and problem-solve. Client shared she has been using self-talk, prayer, 5-senses, and walking to help manage PTSD triggers and anxiety. Client identified skills she can use today to help her reduce anxiety before going to work. Risks/Concerns:: Client denies any suicidal ideations, plan, and intent as of 10/23/18. Progress Toward Goals/Plan:: Since last session, client has made significant strides towards her treatment goals. Client shared she ?left? her boyfriend, recognizing that she cannot be with him if she wants to work on herself, per her report. Client also stopped smoking and has been practicing calming coping skills to manage anxiety. Client shared she continues to struggle with managing her anger, stress related to parenting, and with ambivalence from setting the boundary with her boyfriend. Client is gaining more awareness that a lot of the challenges she faces with trust, emotional regulation, and decision making is a result of trauma. Client reports it is overwhelming for her to work through her past and understand herself, but she wants to try. Client receptive to seeking family and individual counseling. Client also receptive to parenting classes and trauma-focused therapy. Client to continue IOP to prevent decompensation and increase mood stability. Time Stopped:: 13:10
--- NOTE | 2018-10-23 14:58 | BH.MDN_ITS ---
Multi-Disciplinary Note - Note 45-min Individual Time Started:: 12:25 Date: 10/23/18 Purpose of session/treatment goals addressed:: The purpose of this session was to address current triggers, stressors, and symptoms. Another goal was to identify coping skills to manage stress. Other topics included trauma reactions and social supports. Eye Contact:: Good Motor Activity:: Appropriate Appearance:: Disheveled Speech:: Rambling Mood:: Anxious Affect:: Congruent - tearful at one point Thoughts:: Racing, Circular Staff Interventions:: Therapist used active listening and open-ended questions to explore client?s current stressors, triggers, and symptoms. Therapist praised client for her consistent efforts in using coping skills and cutting back on smoking. Therapist provided psychoeducation on trauma and explained how trauma- focused therapy could benefit client, and her relationship with her children, in her mental health recovery. Therapist taught client mindfulness and grounding techniques to help client feel present and manage anxiety and PTSD. Therapist brought awareness to ambivalent thinking and helped client see the costs and benefits of boundary setting with people in her life. Therapist assisted client in identifying stress management techniques to use today. Therapist helped client set up an appointment at [facility] for herself and her children. Client Response:: Client responded well to session, open to meeting with therapist. Client reported she currently feels overwhelmed and stressed about numerous issues in her life. Client continues to feel stress and conflicting feeling about leaving her boyfriend. On top of this, client is struggling with parenting and a recent trauma trigger. Client shared she did not have good role models as parents, so she tends to revert to what she knows-yelling. Client became tearful and shared I don't want to be like my parents. Client receptive to therapist's support and discussion of trauma responses. Client reported feeling more normal after psychoeducation. Client receptive to getting family therapy and parenting classes. Client able to challenge conflicting thoughts and emotions about her recent breakup and reported acknowledgement that if she does not maintain the boundary she will go back to the way I was. Client also reports stress due to work being busy this week, but she was able to talk herself through it and problem-solve. Client shared she has been using self- talk, prayer, 5-senses, and walking to help manage PTSD triggers and anxiety. Client identified skills she can use today to help her reduce anxiety before going to work. Risks/Concerns:: Client denies any suicidal ideations, plan, and intent as of 10/23/18. Progress Toward Goals/Plan:: Since last session, client has made significant strides towards her treatment goals. Client shared she ?left? her boyfriend, recognizing that she cannot be with him if she wants to work on herself, per her report. Client also stopped smoking and has been practicing calming coping skills to manage anxiety. Client shared she continues to struggle with managing her anger, stress related to parenting, and with ambivalence from setting the david undary with her boyfriend. Client is gaining more awareness that a lot of the challenges she faces with trust, emotional regulation, and decision making is a result of trauma. Client reports it is overwhelming for her to work through her past and understand herself, but she wants to try. Client receptive to seeking family and individual counseling. Client also receptive to parenting classes and trauma-focused therapy. Client to continue IOP to prevent decompensation and increase mood stability. Time Stopped:: 13:10
--- NOTE | 2018-10-28 09:05 | BH.SGPN.GN ---
Behaviors/Verbalizations/Mental Status: []Client alert and oriented, disheveled appearance. Eye contact good. Motor activity appropriate. Speech within normal limits. Affect congruent, mood anxious. Thoughts linear, logical, no signs of hallucinations or delusions. Reviewed client?s symptom tracker, no risk for suicidal ideation, plan, or intent as of 10/28/18. Client Response/Progress/Benefit: []Client responded well to session, quiet, but attentive and engaged throughout. Client reports feeling ?anxious and tired? today. Client?s current stressor is that she was hospitalized on last week due to blood clots. Client shared she had some negative thoughts while she was in the hospital, but now that she is out she has been able to challenge them. Client was able to identify positives which included challenging negative thoughts and looking at her recent situation in a positive way. Client shared ?at least they caught it early.? Client appeared to benefit from utilizing in the moment coping skills. Progress noted in client?s ability to challenge negative thoughts, but she continues to struggle with managing anxiety on a daily basis. Will continue IOP to prevent decompensation and increase mood stability.?
--- NOTE | 2018-10-28 10:15 | BH.SGPN.GN ---
Behaviors/Verbalizations/Mental Status: [] Eye contact is good. Motor activity is appropriate. Appearance is casual. Speech is Appropriate. Mood is depressed/irritable. Affect is flat. Thoughts are linear and logical. No evidence of psychosis. Client Response/Progress/Benefit: [] Pt was an active participant in group discussion and activity. Attentive during psychoeducation. Worked with the group to identify benefits to making changes in our lives which included; growth, new opportunities, new experiences, improved relationships, getting ourself out of our comfort zones, increasing our adaptability, and building confidence. Group then identified barriers to change or what keeps us from making changes which included; change can be risky, fear of the unknown, fear of failure, negative thinking, what if thinking, anxiety, and change is scary. Pt participated along with group in activity where they identified and discussed the emotions related to change. Benefited from increased awareness and understaging of emotions, benefits, and barriers related to change. Will continue in IOP to prevent decompensation, increased coping skills for depression, stress, and anxiety, and improve daily functioning. Narrative Note: []
--- NOTE | 2018-10-28 11:17 | BH.SGPN.GN ---
Behaviors/Verbalizations/Mental Status: [Pt alert and oriented, casual dress, grooming appropriate. Eye contact good. Motor activity appropriate. Speech within normal limits. Affect congruent, mood euthymic. Thoughts linear, logical, no signs of hallucinations or delusions.] Client Response/Progress/Benefit: [Pt responded well to session, active participant. Participated in the challenge activity and helped the group process barriers associated with making change. She reported uncomfortable feelings and anxiety can prevent change, whereas communication and using support from others helped the group adapt to change. Pt appeared to connect with discussion regarding overcoming the costs of change by identifying potential benefits via decisional balance sheet. Identified a change she would like to make to improve mental health. Pt?s goal is to work on improving self-love. Pt reported potential benefits of change as: increased hope and confidence, better boundaries, and increased ability to step outside comfort zone. Costs of not making the change included: staying stuck, loss of relationships, hopelessness. Progress noted in pt ability to identify MH benefits of change, however recommended continued IOP to improve self-esteem, increase consistent use of healthy coping skills, and prevent decompensation.] Narrative Note: []
--- NOTE | 2018-10-29 07:07 | BH.MDN ---
Multi-Disciplinary Note - Note 45-min Individual Time Started:: 11:30 Date: 10/28/18 Purpose of session/treatment goals addressed:: The purpose of this session was to address current symptoms, triggers, and stressors. Another goal was to set weekly goals to increase boundaries and emotional regulation. Eye Contact:: Good Motor Activity:: Appropriate Appearance:: Disheveled Speech:: Appropriate Mood:: Anxious Affect:: Constricted Thoughts:: Linear, Logical, No evidence of hallucinations/delusions noted Staff Interventions:: Therapist used active listening and open-ended questions to gather information on client's recent stressors, symptoms, and triggers. Therapist used cognitive restructuring to help client identify and replace distortions. Therapist assisted client in creating goals for the week to promote physical health, mental health, and boundaries at work. Therapist taught client different coping strategies to manage anxiety and anger. Client Response:: Client responded well to session, open to meeting with therapist. Client reported she had to stay at the hospital in [place] for two nights due to blood clots in her lungs. Client stated even though she feels tired, anxious, and frustrated, client is happy they caught it early. Client shared she has had this happen before and she can recognize this time she handled it better than the last time. Client stated her health anxiety is heightened and having some negative thoughts about losing progress due to her recent medical issues. However, after further discussion and thought challenging, client able to recognize the progress she has made in boundary setting, self-awareness, and positive self-talk. Client completed a goal setting sheet that helped client identify things she is doing well and goals she can set. Client picked working on goals for mental health, physical health, and work. Client able to set small goals for each area. Client shared she has been struggling with managing her anger and stress, especially with her children and her ex-boyfriend. Client acknowledges she often does not manage her stress throughout the day, so when she gets home it's all bottled up. Client receptive to learning coping skills to increase mindfulness, self-soothing, and self-talk. Risks/Concerns:: Client denies any suicidal ideation, plan, and intent as of 10/28/18. Progress Toward Goals/Plan:: Client continues to make strides towards her treatment goals. Client has not smoked a cigarette in over a week and she reports maintaining some boundaries with her ex-boyfriend. Client had a recent medical issue which is causing client to have some anxiety and negative thinking. However, client is showing progress as she can challenge those thoughts and setting goals to help client return to baseline. Client reports she continues to struggle with consistently managing her anger, stress related to parenting, and with ambivalence from setting the boundary with her boyfriend. Client has set up an intake appointment for family therapy and is willing to do parenting classes. Client to continue IOP to prevent decompensation and increase mood stability. Time Stopped:: 12:12
--- NOTE | 2018-10-30 09:02 | BH.SGPN.GN ---
Behaviors/Verbalizations/Mental Status: []Client alert and oriented, casually dressed and groomed. Eye contact good. Motor activity appropriate. Speech within normal limits. Affect constricted, mood anxious. Thoughts linear, logical, no signs of hallucinations or delusions. Reviewed client?s symptom tracker, no risk for suicidal ideation, plan, or intent as of 10/30/18. Client Response/Progress/Benefit: []Client responded well to session, providing supportive feedback to peers. Client reports feeling ?nervous and tired? today. Client shared she is stressed about money and her ex-boyfriend. Client stated she got into a fight with her ex-boyfriend yesterday because of how he was treating her daughter. Client stated her work is giving her time off due to recent medical complications. Client shared she is torn ?because I know it?s good for me but I need money.? The group provided support and helped client see long-term benefits of taking time off work. Client?s current mental health wins include being active yesterday with her children and having reduced DSM-5 scores at her midpoint review. Client stated she is trying to be positive and challenge negative thoughts which appears to be contributing to her progress. Client appeared to benefit from processing her stress and receiving support. Progress noted in reduced intensity of symptoms, but client continues to struggle with interpersonal relationship issues and emotional regulation.
--- NOTE | 2018-10-30 10:15 | BH.SGPN.GN ---
Behaviors/Verbalizations/Mental Status: []Client alert and oriented,casually dressed and groomed. Eye contact good. Motor activity appropriate. Speech within normal limits. Affect constricted, mood anxious. Thoughts linear, logical, no signs of hallucinations or delusions. Client Response/Progress/Benefit: []Client was an active participant in group activity and discussion. Client connected with the topic and able to identify common barriers that keep people stuck from moving forward. Client shared she sometimes believes that other people ?just have it easy and they can be happy all the time, but I can?t.? The group helped client recognize that struggles are universal and that it is possible for anyone to improve their mental health. Client identified her current reality which client described as being held back by guilt, struggling to let go of the past, and not having self-worth. Client able to identify her personal resilience factors in her current reality such as increased self-awareness, determination to change, and progress since starting IOP. Client shared her realistic, desired reality would be self-love, increased trust for people, and being in control of her emotions. Worked with group to identify barriers to reaching desired reality which include; negative thoughts and lack of trust. Benefited from group as client was able to identify current mental health state, resilience factors, and barriers that are impacting progress.
--- NOTE | 2018-10-30 11:20 | BH.SGPN.GN ---
Behaviors/Verbalizations/Mental Status: [] Eye contact is good. Motor activity is appropriate. Appearance is casual. Speech is Appropriate. Mood is depressed. Affect is flat. Thoughts are linear and logical. No evidence of psychosis. Client Response/Progress/Benefit: [] Pt was an active participant in group discussion and activity. Group worked together to identify obstacles and barriers that are keeping them from their desired reality. Identified distorted view of self, negative self-talk, lack of trust, procrastination, unrealistic expectations, and cognitive distortions as common barriers. Through experiential activity group then worked together to develop strategies to overcome these obstacles such as; reframing, reviewing positives, healthy distractions, baby steps, small goals, affirmations, setting boundaries, exposure, identify positive self-worth, adjusting expectations, and many more. Pt reports that she feels she is making progress and is closer than she has been in years. Desired reality is being happy, trusting, and not pushing people away. Narrative Note: []
--- NOTE | 2018-10-30 14:54 | BH.MTP_ITS ---
Treatment Plan Review Date of Admission:: 09/30/18 Date of Treatment Plan Review:: 10/29/18 Admitting Diagnoses:: Major depression, recurrent, severe F 33.2; generalized anxiety disorder; somatic symptom disorder; PTSD; Borderline personality disorder Current Diagnoses:: Major depression, recurrent, severe F 33.2; generalized anxiety disorder; somatic symptom disorder; PTSD; Borderline personality disorder Patient's Response to Treatment:: Client has responded well to IOP so far and has demonstrated progress towards treatment goals. Client is an active group member who provides feedback and actively challenges negative thinking. Client has mostly consistent attendance, although she has cancelled a few times. During individual sessions, client is receptive to feedback and thought challenging. Client is not always consistent with homework, but she makes efforts each day to incorporate what she learned in group into her daily life. Client has been working on self-care, setting healthy boundaries, and challenging anxious thoughts. Client self-reports a more positive outlook, improved self-control, and better emotional regulation. Client has stopped smoking cigarettes and she wants to improve her physical health as well as her mental health. At admission, client was constantly feeling anxious, angry, and depressed. At review, client reported reduced symptoms and increased motivation. Client?s scores for depression went from 8/8 at admission, to 2/8 at review. Client?s scores for anger went from 4/4 at admission to 2/4 at discharge. Additionally, client?s DSM-5 scores for anxiety reduced from 12/12 at admission, to 5/12 at discharge. Status of Current Problems and Symptoms: Client reports she continues to struggle with consistently managing her anger, stress related to parenting, and with ambivalence from setting the boundary with her boyfriend. Client's relationship, work, and finances continue to be client's biggest anxiety and depression triggers. Client also demonstrates ongoing issues with managing anxiety and she continues to struggle with emotions directing her actions. Client has improved with catching distorted thinking, but she can continue to improve with challenging negative thoughts without external validation. Problem #1 Problem Name:: Pt. will increase emotional regulation and reduce anxiety Status of Goals:: Objective 1- partially complete. Client can identify cognitive distortions that lead to rumination, she continues to struggle with challenging negative thoughts without external support. Objective 2-complete. Client was given psychoeducation on trauma?s impact on emotions, thoughts, and reactions. Client able to use calming and self-talk statements to manage triggers. Objective 3-partially complete. Client able to identity and reports using calming coping skills and her DSM-5 scores for anxiety have reduced since admission. However, client struggles with recognizing early warning signs which at times leads to escalation of symptoms during high stress situations. Team Recommendations:: Client encouraged to continue working on this treatment goal to reinforce healthy coping skills and continue to decrease anxiety symptoms and emotional dysregulation. Client is more aware of negative thinking and has been using calming coping skills, but she continues to struggle with consistent mood stability. Client encouraged to establish outpatient psychiatry and counseling services. Client also expressed interest in getting family counseling and participating in local parenting classes. Problem #2 Problem Name:: Pt. will reduce depression, anhedonia, and low motivation Status of Goals:: Objective 1- partially complete. Client has began working on improving self-care as shown by stopping smoking and verbalizing her needs with work. Client has been more active as shown by walking and spending time with her sister. Client is working on boundary setting, but she continues to struggle with consistently setting boundaries and ambivalence about leaving self- identified toxic relationships. Objective 2- complete. Client?s DSM-5 scores for depression and anger have decreased since admission. See above for scores. Additionally, client can report using at least 2 coping skills to better manage depression and anger. Team Recommendations:: Client encouraged to continue working on this treatment goal to reinforce healthy coping skills and continue to decrease anxiety symptoms and emotional dysregulation. Client is more aware of negative thinking and has been using calming coping skills, but she continues to struggle with consistent mood stability. Client encouraged to establish outpatient psychiatry and counseling services. Client also expressed interest in getting family counseling and participating in local parenting classes.
--- NOTE | 2018-10-31 09:10 | BH.SGPN.GN ---
Behaviors/Verbalizations/Mental Status: [] Eye contact is good. Motor activity is appropriate. Appearance is neat. Speech is Appropriate. Mood is depressed. Affect is flat. Thoughts are linear and logical. No evidence of psychosis. Reviewed daily check in sheet pt reported 1/5 for suicidal ideations and 0/5 for intent. Client Response/Progress/Benefit: [] Pt was an active participant in group discussion. Provided feedback when appropriate. Had a short check-in stating her most significant concern in fear of the unknown. Discussed the possibiltiy of moving out of state. Discussed the positives and negative to this move. Fearful of moving to a new place and things getting worse. Difficulty not having control over what could happen in the future. Spent some time with her kids. Reports improved confidence in managing her anxiety, depression, and stress. Progress noted. Benefited from group feedback, support, and feedback. Will continue in IOP to maintain gains, prevent decompensation, and increase coping skills. Narrative Note: []
--- NOTE | 2018-10-31 10:20 | BH.SGPN.GN ---
Behaviors/Verbalizations/Mental Status: []Client alert and oriented, casually dressed and groomed. Eye contact good. Motor activity appropriate. Speech within normal limits. Affect flat, mood irritable. Thoughts linear, logical, no signs of hallucinations or delusions. Client Response/Progress/Benefit: []Client responded well to session, participating when prompted, quiet at times. Client commented on the quote and shared the reason people do not change is often due to fear of the unknown ?like what if it?s worse after the change.? Client agreed with peers that fear of the unknown can keep people stuck and prevent progress. Client engaged in the discussion of what it means to ?take action? in one?s mental health treatment. Client agreed with peers that to make change, one needs self-awareness and follow through. Client identified things in her life she wants to start taking control over and change. These things included: accepting the unknown, not loving herself, anger, not listening to herself, lack of self-care, and uncontrollable worry. Client stated if she could start listening more to herself and her needs it would help her reduce anxiety and set boundaries. Client appeared to benefit from identifying things that are holding her back from mental wellness and learning what it means to ?take action.?
--- NOTE | 2018-10-31 11:25 | BH.SGPN.GN ---
Behaviors/Verbalizations/Mental Status: [Client alert and oriented, casually dressed and groomed. Eye contact good. Motor activity appropriate. Speech appropriate rate and tone. Affect congruent, mood euthymic, anxious. Thoughts linear, logical, no signs of hallucinations or delusions.] Client Response/Progress/Benefit: [Client was an active participant AEB client providing some input to discussion, reports connecting with others input, and taking notes throughout. Attentive and contributing to discussion of the different zones of taking action as well as the pros and cons of each. Client agreed with peers that to grow and improve mental health, one must step out of their comfort zone, but not take on too much at once to prevent staying stuck but also avoid burnout. Client completed worksheet in which she identified a problem area to focus on, a SMART goal to help work on problem area, and identify additional supports needed to be successful. Client identified she wants to improve healthy boundaries. Client identified a small goal which is to practice asserting her own needs and saying ?no? at least once each day. Client stated additional supports needed to be successful with goal which included: positive affirmations, reminding herself of importance of boundaries, and positive encouragement from supports. Appeared to benefit from creating a small goal to aid in mental health progress. Will continue IOP tx to promote use of healthy coping skills, improve emotional regulation skills, and prevent decompensation.] Narrative Note: []
--- NOTE | 2018-11-01 09:10 | BH.SGPN.GN ---
Behaviors/Verbalizations/Mental Status: [] Eye contact is good. Motor activity is appropriate. Appearance is casual. Speech is Appropriate. Mood is depressed. Affect is flat. Thoughts are linear and logical. No evidence of psychosis. Reviewed daily check in sheet and no reports of suicidal ideations or intent. Client Response/Progress/Benefit: [] Pt spoke when prompted. Attentive during group discussions. Emotion for today is sad. She discussed setting up boundaries with a family member. Reports that boundary will help with her mental health, stress, and anger. She was not thrilled with how the person reacting to boundary-setting and believes that this person was mad at her. Has been ruminating on this. Group provided feedback and provided different perspectives on the reaction as well as some suggestions on maintain the boundary. Progress noted per pt report. Benefited from group support and feedback. Narrative Note: []
--- NOTE | 2018-11-01 11:43 | PCM.PN.BLA ---
Progress Note Chief Complaint: The patient is a 28-year old female who is an active participant in the intensive outpatient mental health treatment program at [facility]. She has a long history of depression, anxiety, somatic symptom disorder, relationship problems and borderline personality features. History of Present Illness/Interim History: The patient states that she has generally been okay. She said that her depression has gotten a lot better and her anxiety level is also better. She is not angry as much, although she does become irritable at times when she is frustrated. She does say that she had suicidal thoughts yesterday because her children were screaming and fighting and not listening to her. She does not have much help with her children and starts to feel overwhelmed. However she said that the groups are helpful. She is learning how to talk herself through uncomfortable situations and utilizing coping strategies. She hopes to obtain family counseling to assist her in her parenting issues. Current Psychiatric Medications: BuSpar 15 mg twice daily, Prozac 10 mg daily Review of Symptoms: Psychiatry: Improving depression and anxiety. One episode of recent suicidal thinking but otherwise not suicidal. There is no psychosis. She is cognitively intact. Constitutional: She is obese and her weight has been steady. Her energy level is good. Mental Status Examination: The patient presents as a calm, cooperative woman of obese build who is casually dressed and sloppily groomed. She demonstrates fair social skills. Her thoughts are logical and coherent. She reported improvement in depression and anxiety as per HPI. She is not actively suicidal. There is no psychosis. She is cognitively intact. Diagnoses: [place] I: Major depression, recurrent, in partial remission; generalized anxiety disorder; somatic symptom disorder; illness anxiety disorder; relationship distress with partner [place] II: Borderline personality disorder [place] III: Obesity, history of blood clot disorder Plan: I am continuing treatment with Prozac and BuSpar. The patient will continue treatment in the intensive outpatient groups. I will see her again for follow-up.
--- NOTE | 2018-11-01 11:49 | PN_ITS ---
Progress Note Chief Complaint: The patient is a 28-year old female who is an active participant in the intensive outpatient mental health treatment program at [facility]. She has a long history of depression, anxiety, somatic symptom disorder, relationship problems and borderline personality features. History of Present Illness/Interim History: The patient states that she has generally been okay. She said that her depression has gotten a lot better and her anxiety level is also better. She is not angry as much, although she does become irritable at times when she is frustrated. She does say that she had suicidal thoughts yesterday because her children were screaming and fighting and not listening to her. She does not have much help with her children and starts to feel overwhelmed. However she said that the groups are helpful. She is learning how to talk herself through uncomfortable situations and utilizing copi ng strategies. She hopes to obtain family counseling to assist her in her parenting issues. Current Psychiatric Medications: BuSpar 15 mg twice daily, Prozac 10 mg daily Review of Symptoms: Psychiatry: Improving depression and anxiety. One episode of recent suicidal thinking but otherwise not suicidal. There is no psychosis. She is cognitively intact. Constitutional: She is obese and her weight has been steady. Her energy level is good. Mental Status Examination: The patient presents as a calm, cooperative woman of obese build who is casually dressed and sloppily groomed. She demonstrates fair social skills. Her thoughts are logical and coherent. She reported improvement in depression and anxiety as per HPI. She is not actively suicidal. There is no psychosis. She is cognitively intact. Diagnoses: [place] I: Major depression, recurrent, in partial remission; generalized anxiety disorder; somatic symptom disorder; illness anxiety disorder; relationship distress with partner [place] II: Borderline personality disorder [place] III: Obesity, history of blood clot disorder Plan: I am continuing treatment with Prozac and BuSpar. The patient will continue treatment in the intensive outpatient groups. I will see her again for follow-up.
--- NOTE | 2018-11-04 09:10 | BH.SGPN.GN ---
Behaviors/Verbalizations/Mental Status: [] Eye contact is good. Motor activity is appropriate. Appearance is casual. Speech is Appropriate. Mood is anxious. Affect is congruent. Thoughts are linear and logical. No evidence of psychosis. Reviewed daily check in sheet and no reports of suicidal ideations or intent. Client Response/Progress/Benefit: [] Pt was an active participant in group discussion. As usual pt's check-ins are brief and very concrete. Struggles with identifying emotions and discussing her mental health. Reports that she was able to use some skills to avoid an argument with family. She views this as a win and as progress. Provided appropriate feedback to peers. Emotion for today is anxious. Progress noted per pt report. Benefited from group support, encouragement, and feedback. Will continue in IOP to maintain gains, increase healthy skills to manage anger and depression, and prevent decompensation. Narrative Note: []
--- NOTE | 2018-11-04 10:19 | BH.SGPN.GN ---
Behaviors/Verbalizations/Mental Status: [Client alert and oriented, casually dressed and groomed. Eye contact good. Motor activity appropriate. Speech within normal limits. Affect congruent to topic being discussed, mood euthymic, positive. Thoughts linear, logical, no signs of hallucinations or delusions.] Client Response/Progress/Benefit: [Pt was an active participant in group discussion. Connected with quote, indicating that there are times pt has thought she communicated but her supports did not understand. Pt agreed with peers that being vague, tone, and non-verbal communication can have negative impacts on relationships and reinforce mental health symptoms. Group discussed the MH benefits to having open and clear communication with support and providers. Group discussed the barriers that tend to impact clear and open communication which include: making assumptions, shutting down, non-verbal communication, tone of voice, and listening to respond not understand. Pt stated she is sometimes unsure of how to communicate feelings or concernss to others. Pt was attentive during psycho-education on communications styles (aggressive, passive, passive-aggressive, and assertive), provided input on the pros and cons to each communication style. Pt seemed to benefit from increased insight on how communication styles impact mental health. Pt to continue IOP level of care to continue utilization of healthy coping skills, challenge distorted thoughts, improve boundaries, and prevent decompensation.] Narrative Note: []
--- NOTE | 2018-11-04 11:21 | BH.SGPN.GN ---
Behaviors/Verbalizations/Mental Status: [Client alert and oriented, casually dressed and appropriately groomed. Eye contact good. Motor activity appropriate. Speech within normal limits. Affect congruent, mood euthymic. Thoughts linear, logical, no signs of hallucinations or delusions] Client Response/Progress/Benefit: [Client active participant AEB positive contributions and engagement throughout. Client reported she is either an aggressive or passive communicator and that this has resulted in needs not getting met and relationship tension as a result. Client took an active role during the discussion reviewing different communication styles and why each may be used, as well as how ineffective communication negatively impacts mental health and relationships. Client identified communication goal which is to practice being more assertive with her boundaries and communicating when she is not okay with something. Client seemed to benefit from increased insight into how current communication style impacts mental health and identifying strategies for increasing effective communication skills. Client progressing as shown by report of improved management of negative thinking and improved use of self-care. Will continue IOP tx to promote mood stability, further improve daily functioning, and prevent decompensation.] Narrative Note: []
--- NOTE | 2018-11-06 09:10 | BH.SGPN.GN ---
Behaviors/Verbalizations/Mental Status: [] Eye contact is good. Motor activity is appropriate. Appearance is casual. Speech is Appropriate. Mood is anxious. Affect is congruent. Thoughts are linear and logical. No evidence of psychosis. Reviewed daily check in sheet and no reports of suicidal ideations or intent. Client Response/Progress/Benefit: [] Pt was active participant in group discussion. She provided feedback to peers however her check-in was minimal. Emotion for today is anxious. Shared some recent stressors related to work and family. Reports that she is starting a new job. Overall believes that she is managing her emotions well however admits to increased irritability and frustration. Motivated and optimistic about the changes Provides appropriate feedback to others and is engaged at times in group. Notes that she gets more out of process group from being around others with mental health issues, support, and encouragement. Will continue in IOP to maintain gains, prevent decompensation, and to stabilize mood. Narrative Note: []
--- NOTE | 2018-11-06 10:20 | BH.SGPN.GN ---
Behaviors/Verbalizations/Mental Status: [] Eye contact is good. Motor activity is appropriate. Appearance is casual. Speech is Appropriate. Mood is depressed. Affect is flat. Thoughts are linear and logical. No evidence of psychosis. Client Response/Progress/Benefit: [] Pt was an active participant in group discussion and activity. Along with the group pt identified the benefits to communicating emotions which include; benefits to venting, helps strengthen relationships, helps process conflict and other issues, encourages feedback and solutions, give us a new perspective on ourself and how others perceive us, and encourages honestly. Group identified the challenges to communicating emotions during stressful situations which include; not having the words to express ourselves, difficulty formulating thoughts, lack of trust, assumptions of how others will respond, fear of judgement, and fear of rejection. Attentive during psychoeducation on emotional regulation through self-awareness, self-regulation, and interpersonal effectiveness. Benefited from insight and awareness of the impact of emotions on communication and the importance of communication in stressful situations. Will continue in IOP to maintain gains, improve coping skills, and prevent decompensation. Narrative Note: []
--- NOTE | 2018-11-06 11:20 | BH.SGPN.GN ---
Behaviors/Verbalizations/Mental Status: []Client alert and oriented, disheveled appearance. Eye contact good. Motor activity appropriate. Speech within normal limits. Affect constricted, mood tired, anxious. Thoughts linear, logical, no signs of hallucinations or delusions. Client Response/Progress/Benefit: []Client was mostly an active participant in group discussion, but quiet at times. Attentive during psychoeducation on 4 zones of regulation. Client able to identify how she feels in each zone as well as how she acts in each zone. Also able to identify strategies to incorporate to support herself in each zone which included; positive self-talk, deep breathing, the 5-senses, and talking with a support. Client shared she is in the ?blue zone? or the low alertness zone and reported she needs a nap. Client able to recognize that just taking a nap could reinforce her low alertness and was encouraged by peers to do something active today. Client stated she can get outside today to help improve her mood. Benefited from group from increased education on zones of regulation or stages of alertness for emotions and healthy coping skills to use for each zone.
--- NOTE | 2018-11-06 14:40 | BH.MDN_ITS ---
Multi-Disciplinary Note - Note 45-min Individual Time Started:: 12:28 Date: 11/06/18 Purpose of session/treatment goals addressed:: The purpose of this session was to address client's current stressors and process conflicting emotions. Another goal was to gain awareness of pros and cons and to set small goals. Eye Contact:: Good Motor Activity:: Appropriate Appearance:: Disheveled Speech:: Tangential Mood:: Anxious Affect:: Constricted Thoughts:: Circular, No evidence of hallucinations/delusions noted Staff Interventions:: Therapist used active listening and open-ended questions to explore client's current stressors and conflicting emotions. Therapist used motivational interviewing and thought challenging to increase client?s awareness to how her relationships impact her mental health progress. Therapist helped client process ambivalence and see the pros and costs of her options. Therapist reviewed benefits of boundaries and helped client rehearse boundary setting. Therapist helped client set small goals for different areas in her life that are causing stress. Therapist used strengths perspective to empower client on her resilience. Client Response:: Client responded well to session, open to meeting with harpal balbuena. Client shared she continues to feel conflicted about her ex-boyfriend. Client stated, part of me knows he won't change, but then I think what if I was meant to be with him. Client shared her fear of the unknown is causing her to feel stuck and she wants to just move away without him knowing so she does not have to deal with the consequences. Client recognizes that right now that option is not feasible. Client receptive to processing her ambivalence and responded well to motivational interviewing. Client able to identify the negative impacts her relationship has had on her mental health including increased symptoms and lack of consistent support. Client shared I'll never know how it will be unless I take time for myself. Client reported her sister is in a similar situation and they have talked about moving in together and getting a fresh start. Client receptive to setting small goals today to reduce stress. Client's goals included reinforcing boundaries with her sister, cutting the grass, and writing out what she wants from a healthy relationship. Risks/Concerns:: Client denies any suicidal ideations, plan, or intent as of 11/06/18. Progress Toward Goals/Plan:: Client continues to make strides towards her treatment goals. Client reports utilizing deep breathing and positive self-talk to manage her emotions. Client also states she is maintaining ?most? of the boundaries she set with her ex-boyfriend. However, client continues to struggle with decision making and with ambivalence from setting the boundary with her boyfriend. Client recognizes she is fearful of change and the unknown which is causing her to feel stuck. Client receptive to goals set in session and willing to communicate with healthy supports. Client to continue IOP to prevent decompensation, promote emotional regulation, and increase interpersonal effectiveness skills. Time Stopped:: 13:14
--- NOTE | 2018-11-12 09:11 | BH.SGPN.GN ---
Behaviors/Verbalizations/Mental Status: [Pt alert and oriented, casual dress, grooming appropriate. Eye contact good. Motor activity appropriate. Speech within normal limits. Affect congruent, mood dysthymic, indicating fatigue. Thoughts linear, logical, no signs of hallucinations or delusions. Reviewed client?s symptom tracker, denies si, plan, or intent as of today.] Client Response/Progress/Benefit: [Pt engaged in group discussion, providing feedback and support throughout. Emotion for today is tired. Pt indicated that current emotion is due to spending the holiday weekend with her family which was ?up and down?. She discussed her current stressor as struggling to maintain healthy boundaries with her supports and provided an example of difficulties in doing so when visiting with her father. Reports trying to focus on positives during the situation rather than feed into her father?s negativity. Pt described this as a mental health win as it is often difficult for her to stay positive when others are not. Additional mental health positive was challenging herself to work through a ?rough day? on her own last Sunday rather than relying on the group to tell her how to cope. Pt reports she used thought challenging, distraction, and reached out to a support which ultimately improved her mood somewhat. Pt expressed wanting to increase her independent application of coping skills prior to discharge this week. Benefited from reflecting upon treatment goal progress and successes from the weekend. Recommended continued IOP tx to promote change behaviors, reinforce coping skills, and complete aftercare planning.] Narrative Note: []
--- NOTE | 2018-11-12 10:18 | BH.SGPN.GN ---
Behaviors/Verbalizations/Mental Status: [Client alert and oriented, casual appearance. Eye contact good. Motor activity appropriate. Speech within normal limits - at times off topic. Affect congruent, mood euthymic. Thoughts linear, logical, no signs of hallucinations or delusions. ] Client Response/Progress/Benefit: [Pt responded well to session, contributing to discussion and attentive throughout. Pt indicated connecting with the topic of cognitive distortions and reflected that at times ?what we make up in our brain, we can believe?even when it?s not good?. Able to work with the group on defining the various types of cognitive distortions and their impact on mental health functioning. Pt reported connecting with distortion of catastrophizing and provided an example of assuming the worst when her daughter is at a friend?s house. Pt did well to connect tendency to catastrophize with impact of past negative experiences and reported that it has ?controlled my life? in the past. Appeared to benefit from increasing awareness of cognitive distortions and how they can impact emotions and behaviors. Progress noted in increased awareness of distortions she personally uses and how they have increased anxiety as a result. Pt to continue IOP to prevent decompensation and promote continued skill application.] Narrative Note: []
--- NOTE | 2018-11-12 11:18 | BH.SGPN.GN ---
Behaviors/Verbalizations/Mental Status: []Client alert and oriented, disheveled appearance. Eye contact good. Motor activity appropriate. Speech within normal limits. Affect congruent, mood anxious. Thoughts linear, logical, no signs of hallucinations or delusions Client Response/Progress/Benefit: []Client responded well to session, struggling at times to understand material. Client engaged in the activity and made the connection that challenging and replacing cognitive distortions takes awareness, time, and effort. Shared connecting with distortions of catastrophizing and shoulds. Client helped the group practice challenging the example cognitive distortions and did well to identify evidence against negative thoughts. Client assisted the group in learning ways to combat negative thinking. Client able to challenge one of her ongoing negative thoughts ?I?m never going to better myself? to ?yes I will get better, I have before.? Appeared to benefit from practicing thought challenging and gaining awareness of different strategies to combat distortions. Progress noted as client reports utilizing calming coping skills on a more consistent basis. However, client continues to struggle with self-confidence and setting boundaries which reinforces anxiety.
--- NOTE | 2018-11-15 08:26 | BH.AFTERPLAN ---
Aftercare Plan - Demographics Treatment End Date:: 11/15/18 Psychiatrist:: Tj Howe Psychiatrist Office #:: [id number] [facility]/IOP Therapist:: Martina Mccord Therapist Phone #:: [phone] - Medications Home Medications: Home Medications Aspirin [Aspirin, Baby] 81 mg PO DAILY 12/21/15 Levothyroxine [Synthroid] 150 mcg PO DAILY 12/21/15 Levothyroxine [Synthroid] 300 mcg PO QWEEK 12/21/15 busPIRone [Buspar] 5 mg PO TID 10/02/18 - Plan Details Progress/Aftercare Plan Details:: Since starting IOP Catherine has made significant progress in setting boundaries, gaining awareness about mental health, and becoming more positive. Catherine has shown progress in reducing depressive and anxiety symptoms, applying coping skills, and challenging negative thoughts. Catherine has increased understanding of the benefits of boundary setting and self-care. Catherine has learned about healthy relationships and coping skills. Catherine reports improvements in communicating her needs and has been receptive to feedback from peers and facilitators in [facility]. Catherine has demonstrated progress in setting small goals to support her bigger goals. Catherine was provided information for counseling services at [facility] where she would like parenting classes and individual therapy. Catherine was also encouraged to follow up with her primary care physician for ongoing medical conditions and medication management until she sees psychiatry. Catherine was provided resources for psychiatry in the area. - Appointments Appointments/Referrals to Other Services:: 1. Follow up with [facility] for individual counseling and parenting classes. [phone]. 2. Follow up with primary care physician for ongoing medical needs and medication management. 3. Psychiatry through [facility] or [facility]
--- NOTE | 2018-11-15 08:35 | BH.IGGP_ITS ---
Aftercare Plan - Demographics Treatment End Date:: 11/15/18 Psychiatrist:: Tj Howe Psychiatrist Office #:: [id number] [facility]/IOP Therapist:: Martina Mccord Therapist Phone #:: [phone] - Medications Home Medications: Home Medications Aspirin [Aspirin, Baby] 81 mg PO DAILY 12/21/15 Levothyroxine [Synthroid] 150 mcg PO DAILY 12/21/15 Levothyroxine [Synthroid] 300 mcg PO QWEEK 12/21/15 busPIRone [Buspar] 5 mg PO TID 10/02/18 - Plan Details Progress/Aftercare Plan Details:: Since starting IOP Catherine has made significant progress in setting boundaries, gaining awareness about mental health, and becoming more positive. Catherine has shown progress in reducing depressive and anxiety symptoms, applying coping skills, and challenging negative thoughts. Catherine has increased understanding of the benefits of boundary setting and self-care. Catherine has learned about healthy relationships and coping skills. Catherine reports improvements in communicating her needs and has been receptive to feedback from peers and facilitators in [facility]. Catherine has demonstrated progress in setting small goals to support her bigger goals. Catherine was provided information for counseling services at [facility] where she would like parenting classes and individual therapy. Catherine was also encouraged to follow up with her primary care physician for ongoing medical conditions and medication management until she sees psychiatry. Catherine was provided resources for psychiatry in the area. - Appointments Appointments/Referrals to Other Services:: 1. Follow up with [facility] for individual counseling and parenting classes. [phone]. 2. Follow up with primary care physician for ongoing medical needs and medication management. 3. Psychiatry through [facility] [phone] or [facility]
--- NOTE | 2018-11-15 13:31 | BH.COMM ---
Communication Note - Communication with Client Communication Note: Due to client cancelling twice this week, client and this therapist were unable to meet for an individual session. Therapist to meet with client next week.
== END 2018-11-15 23:59 ==
LOC: BHIOP 08:46
PROVIDERS: Family Provider Family Medicine; PCP Family Medicine; Referring Provider Psychiatry & Neurology Psychiatry; Visit Provider Psychiatry & Neurology Psychiatry
DX: F33.41 Major depressive disorder, recurrent, in partial remission (principal); F41.1 Generalized anxiety disorder; F60.3 Borderline personality disorder; F45.21 Hypochondriasis; E66.9 Obesity, unspecified; Z63.0 Problems in relationship with spouse or partner; Z79.899 Other long term (current) drug therapy; Z86.2 Personal history of diseases of the blood and blood-forming organs and certain disorders involving the immune mechanism
CPT/HCPCS: 99213; H0035; H2012; H2020; T1002; 90834

== ENCOUNTER 2018-11-18 09:00 | Outpatient (RCR) | payer MEDICAID, SELFPAY ==
[2016-12-14 21:13] VITALS: BMI 43.7
--- NOTE | 2018-11-18 09:10 | BH.SGPN.GN ---
Behaviors/Verbalizations/Mental Status: [] Eye contact is good. Motor activity is appropriate. Appearance is casual. Speech is Appropriate. Mood is depressed. Affect is flat. Thoughts are linear and logical. No evidence of psychosis. Reviewed daily check in sheet and no reports of suicidal ideations or intent. Client Response/Progress/Benefit: [] Pt was an active participant in group discussion. Shared that today is her last day in [facility]. Reports that she is sad and stressed and is going to miss the support. Went back to work yesterday and believes that things went well. Maintaining boundaries and feeling that she is better able to keep her emotions in check. Discussed her progress in [facility] and states that she benefited most from process groups, support, not feeling like she was alone in her mental illness, and the groups that talked about coping skills. Will be discharged from [facility] today. Narrative Note: []
--- NOTE | 2018-11-18 09:16 | BH.DS_ITS ---
Discharge Summary - Demographics Date of Admission:: 10/10/18 Discharge Date: 11/18/18 Presenting Problems at Admission:: Client is a 28-year-old female with a history of depression, anxiety, and PTSD. Client presented to [facility] with worsening depression and anxiety since 05/2018. Client reported significant worrying, fear of being alone, panic attacks, and passive thoughts of . Client shared she was not able to sleep alone in her house due to fear and anxiety. Client endorsed erratic appetite, worthlessness, hopelessness, decreased sleep, lack of motivation, and rumination. Client reported long-standing history of anger issues and emotional dysregulation. Client shared she was often worried about her health and fears she will from some medical issue. Client reported her symptoms were impacting her ability to function at her baseline as well as her social, occupational, and familial functioning. Discharge Diagnoses:: Major depression, recurrent, severe F 33.2; generalized anxiety disorder; somatic symptom disorder; PTSD; illness anxiety disorder; Borderline personality disorder Reason for Discharge:: Client has made significant progress towards treatment goals as shown by her reduced DSM-5 scores for anxiety and depression. Additionally, client has made progress with utilizing healthy coping skills and reports improved boundaries and outlook. Client no longer meets criteria for [facility] level of care. - Treatment Progress During Treatment & Response: Client has responded well to [facility] and shown significant progress towards treatment goals. Throughout her time in [facility], client was an active group member who provided feedback and made connections with topics during sessions. Client had mostly consistent attendance, healthy boundaries with peers, and she increased her self-awareness. During individual sessions, client was receptive to feedback and thought challenging. Client was not always consistent with homework, but she made efforts each day to incorp orate what she learned in group into her daily life. Client has progressed with reducing anxiety by talking herself through her worries rather than jumping to worst-case scenarios. Client self-reports increased mood stability, a more positive outlook, improved self-control, better boundaries, and better emotional regulation. At admission, client was constantly feeling anxious, angry, and depressed. At discharge, client reported reduced symptoms, increased motivation, and self-compassion. Client?s DSM-5 scores went from 63 at admission to 18 at discharge. Client?s scores for depression went from 8/8 at admission, to 2/8 at discharge. Client?s suicidal ideation went from 1/4 at admission, to 0/4 at discharge. Client improved in learning to manage her anger as shown by her reduced DSM-5 scores since admission, going from 4/4 for anger at admission to 2/4 at discharge. Additionally, client?s DSM-5 scores for anxiety reduced from 12/12 at admission, to 4/12 at discharge. Issues Still to be Addressed:: Client has made significant progress since starting IOP as noted above. Client can continue to benefit from ongoing counseling to reinforce healthy coping skills, increase stress management, set healthy boundaries, and improve emotional regulation skills. Client can also benefit from ongoing medical continuity of care, healthy lifestyle choices, and participating in the [facility] program she has signed up for starting this month. Client would like to continue to work on challenging negative thoughts, increasing self-acceptance, and maintaining gains made in IOP. Client recognizes that her childhood and adult trauma continue to impact her relationships, anxiety, and emotional regulation. Client would benefit from trauma-focused counseling and psychoeducation on ANGELIA?s. Client has received some psychoeducation while in IOP. Client is behind on her bills due to missing work for medical reasons, and client can potentially benefit from case management s ervices. Lastly, client can benefit from parenting classes to increase client?s understanding, coping skills, and relationship with her children. Discharge Recommendations/Instructions:: Client recommended to follow up with ongoing outpatient counseling services and she is established at [facility]. Client?s first appointment is 11/25/18. Client requested to be connected with [facility] parenting classes and case management as well. This therapist spoke to staff at [facility] with client present, and all parties agree with the plan. Client recommended to follow up with her primary care physicians for ongoing medical care and medication management. Client is not currently taking Prozac, per her report. Client declined needing psychiatry services at this time, but this therapist provided client with the phone numbers to [facility] and the [facility] should client change her mind. Lastly, client is working on improving her health through weight loss and she has an appointment with [facility] on 12/02/18 to begin a weight loss program. Discharge Handout: Complete Discharge Handout with client on aftercare options and continuity of care.
--- NOTE | 2018-11-18 09:16 | BH.IGGP_ITS ---
Aftercare Plan - Demographics Treatment End Date:: 11/18/18 Psychiatrist:: Tj Howe Psychiatrist Office #:: [phone] [facility] Therapist:: Martina Mccord Therapist Phone #:: [phone] - Medications Home Medications: Home Medications Aspirin [Aspirin, Baby] 81 mg PO DAILY 12/21/15 Levothyroxine [Synthroid] 150 mcg PO DAILY 12/21/15 Levothyroxine [Synthroid] 300 mcg PO QWEEK 12/21/15 busPIRone [Buspar] 5 mg PO TID 10/02/18 - Plan Details Progress/Aftercare Plan Details:: Since starting IOP Mary Carmen has made significant progress in setting boundaries, gaining awareness about mental health, increasing self-compassion, reducing unhealthy coping skills, and becoming more positive. Mary Carmen has shown progress in reducing depressive and anxiety symptoms, applying coping skills, and challenging negative thoughts. Mary Carmen has increased understanding of the benefits of boundary setting and self-care. Mary Carmen has learned about healthy relationships and coping skills. Mary Carmen reports improvements in communicating her needs and has been receptive to feedback from peers and facilitators in [facility]. Mary Carmen has demonstrated progress in setting small goals to support her bigger goals. Mary Carmen is set up with counseling services at [facility] where she would like parenting classes and individual therapy. Mary Carmen was also encouraged to follow up with her primary care physician for ongoing medical conditions and medication management. Mary Carmen was provided resources for psychiatry in the area. Lastly, mary carmen was encouraged to follow up with [facility] for ongoing social support. Strategies for Success:: 1. BREATHE! When it doubt, take a few minutes to breathe and be present. 2. Use self-talk! Remind yourself that you can get t hrough tough times (you have been able to do it before!). Remind yourself that you are strong and capable. Remind yourself of the consequences. 3.Relaxation and calming skills! Showers, washing hair, doing makeup, taking care of your basic needs. 4. Challenge negative thoughts! Ask yourself is this true? is it helpful? is it irrational? is it negative? is it kind? 5. Break down problems! You don't have to tackle everything at once, focus on one step at a time. 6. Talk with trusted supports and process your emotions daily. 7. Write down three positives each day! 8. What Would Martina Say? WWMS? 9. Exercise and stay active/productive. 10. Look at all the options, remember there's more than one way to do something. 11. Give yourself credit! You have come so far!! - Appointments Appointments/Referrals to Other Services:: 1. Follow up with [facility] for individual counseling and parenting classes. . Next appointment is 11/25/18 at 8:00-8:30 2. Follow up with primary care physician for ongoing medical needs and medication management. 3. Psychiatry through [facility] in [place] or [facility] 4. Follow up with [facility] for weight loss program on 12/02/18. 5. follow up with me on December 02 at 1pm
--- NOTE | 2018-11-18 10:25 | BH.SGPN.GN ---
Behaviors/Verbalizations/Mental Status: []Client alert and oriented, casually dressed. Eye contact good. Motor activity appropriate. Speech within normal limits. Affect congruent, mood positive and anxious. Thoughts linear, logical, no signs of hallucinations or delusions. Client Response/Progress/Benefit: []Pt responded well to session, provided input and able to reflect on content discussed throughout. Pt participated in group discussion regarding mental health benefits of change and barriers in making those changes. Pt identified fear of the unknown outcome as a common barrier to making change because why risk what you have. Pt identified three small personal changes to improve mental health as: challenging negative thoughts, getting out of comfort zone, and accepting change as a part of living. Pt identified barriers to making identified changes include: past experiences, fear of outcome, fear of being alone, not letting go of past experiences, and fear of never being happy. Pt appeared to benefit from gaining awareness of personal changes that would improve mental health and the barriers keeping client stuck. Progress noted in pt's increased awareness of barriers that impact ability to make changes in life. Pt has made significant progress in IOP and plan is to discharge from IOP today. Narrative Note: []
--- NOTE | 2018-11-18 15:23 | BH.MDN_ITS ---
Multi-Disciplinary Note - Note 45-min Individual Time Started:: 11:36 Date: 11/18/18 Purpose of session/treatment goals addressed:: The purpose of this session was to review client's progress and review strategies that will promote mood stability and gains made in [facility]. Another goal was to discuss discharge recommendations and challenge anxious thoughts. Eye Contact:: Good Motor Activity:: Appropriate Appearance:: Casual Speech:: Appropriate Mood:: Anxious Affect:: Congruent - tearful Thoughts:: Linear, Logical, No evidence of hallucinations/delusions noted Staff Interventions:: Therapist used open-ended questions to explore client's thoughts on personal progress. Therapist helped client challenge negative thoughts reinforcing self-doubt. Therapist reviewed supports, warning signs, and coping skills with client to promote gains and prevent setbacks. Therapist discussed aftercare plan with client and used strengths-perspective to empower client on the goals client has accomplished. Therapist discussed the benefits of ongoing maintenance and use of daily coping skills. Therapist gave client a quote collage for closure. Client Response:: Client responded well to session, at first client was tearful but left session smiling. Client shared she is worried to leave [facility] for fear she will not be able to sustain her progress. With therapist support, client able to challenge these thoughts, I've been able to do it before and I can again. Client identified personal maintenance strategies to promote gains and prevent major setbacks. Client?s strategies included: thought challenging, positive self-talk, deep breathing, taking breaks, being productive, talking with supports, and setting boundaries. Client self-identified her progress to be being more understanding towards herself, taking steps to change and set boundaries, and trying to be more positive. Client saw the reduction in her DSM- 5 scores from admission to discharge. Client shared ?that?s a lot? and reports feeling proud of herself. Client shared she stopped smoking and she is starting a program at [facility] for weight loss. Client and therapist called during session to set up aftercare at [facility]. Client reported she does not need psychiatry at this time as she is no longer taking her Prozac. Client was provided resources for psychiatry should client change her mind. Risks/Concerns:: Client denies any suicidal ideations, plan, and intent as of 11/18/18. Progress Toward Goals/Plan:: Client to discharge from [facility] today as she has made significant progress towards her treatment goals. Client reports reduced depression and anxiety symptoms, as well as stopping smoking. Client identified personal progress ?trying to put my needs first,? increased self-control, thinking more positive, and setting boundaries. Client reports plan to follow up with [facility] for individual counseling, case management, and parenting classes. Time Stopped:: 12:16
== END 2018-11-18 14:00 | disposition home or self-care (01) ==
LOC: BHIOP 09:00
PROVIDERS: Family Provider Family Medicine; PCP Family Medicine; Referring Provider Psychiatry & Neurology Psychiatry; Visit Provider Psychiatry & Neurology Psychiatry
DX: F33.2 Major depressive disorder, recurrent severe without psychotic features (principal); F41.1 Generalized anxiety disorder; F45.9 Somatoform disorder, unspecified; F43.10 Post-traumatic stress disorder, unspecified; F41.8 Other specified anxiety disorders; F60.3 Borderline personality disorder
CPT/HCPCS: H0035; H2012; 90834

== ENCOUNTER 2018-12-02 08:44 | Outpatient (RCR) | payer MEDICAID, SELFPAY | END 2018-12-15 23:59 | LOC: NS 08:44 | PROVIDERS: Family Provider Family Medicine; PCP Family Medicine; Visit Provider Family Medicine | DX: E66.01 Morbid (severe) obesity due to excess calories (principal); Z68.41 Body mass index [BMI] 40.0-44.9, adult; Z71.3 Dietary counseling and surveillance; E03.9 Hypothyroidism, unspecified | CPT/HCPCS: 97802 ==

== ENCOUNTER 2019-01-13 18:00 | Outpatient (RCR) | payer MEDICAID, SELFPAY ==
[2016-12-14 21:13] VITALS: BMI 43.7
== END 2019-01-15 23:59 ==
LOC: NS 18:00
PROVIDERS: Family Provider Family Medicine; PCP Family Medicine; Visit Provider Family Medicine
DX: E66.01 Morbid (severe) obesity due to excess calories (principal); Z68.41 Body mass index [BMI] 40.0-44.9, adult; Z71.3 Dietary counseling and surveillance; E03.9 Hypothyroidism, unspecified
CPT/HCPCS: 97803

== ENCOUNTER 2019-01-27 16:32 | Outpatient (RCR) | payer MEDICAID, SELFPAY ==
[2016-12-14 21:13] VITALS: BMI 43.7
== END 2019-02-15 23:59 ==
LOC: NS 16:32
PROVIDERS: Family Provider Family Medicine; PCP Family Medicine; Visit Provider Family Medicine
DX: E66.01 Morbid (severe) obesity due to excess calories (principal); Z68.41 Body mass index [BMI] 40.0-44.9, adult; Z71.3 Dietary counseling and surveillance; E03.9 Hypothyroidism, unspecified
CPT/HCPCS: 97803

== ENCOUNTER 2019-03-10 10:00 | Outpatient (RCR) | payer MEDICAID, SELFPAY ==
[2016-12-14 21:13] VITALS: BMI 43.7
== END 2019-03-10 23:59 | disposition home or self-care (01) ==
LOC: NS 10:00
PROVIDERS: Family Provider Family Medicine; PCP Family Medicine; Visit Provider Family Medicine
DX: Z71.3 Dietary counseling and surveillance (principal); E66.01 Morbid (severe) obesity due to excess calories; Z68.41 Body mass index [BMI] 40.0-44.9, adult; E03.9 Hypothyroidism, unspecified
CPT/HCPCS: 97803

== ENCOUNTER → 2019-05-14 14:02 | Outpatient (CLI) | payer MEDICAID, SELFPAY ==
[2019-05-14 14:25] LABS: D-Dimer Quantitative (DVT/PE) < 0.27 FEU/ug/m (0.27-0.49)
== END ==
PROVIDERS: Family Provider Family Medicine; PCP Family Medicine; Referring Provider Family Medicine; Visit Provider Family Medicine
DX: R06.02 Shortness of breath (principal); M79.604 Pain in right leg; M79.605 Pain in left leg
CPT/HCPCS: 85379

== ENCOUNTER 2020-04-01 18:53 | Emergency (ER) | payer MEDICAID, SELFPAY ==
[2020-04-01 18:54] VITALS: BP 147/78; PULSE 93; RESP 17; TEMP 36.2; O2SAT 100; BMI 44.8
[2020-04-01 19:29] LABS: Bacteria 0 SEEN /hpf (None Seen); Mucous, Urine 0 SEEN /hpf (<or=2+); Red Blood Cells-Urine 0 SEEN /hpf (0-5); White Blood Cells 0 SEEN /hpf (0-5)
[2020-04-01 19:34] LABS: Color, Urine Yellow (Yellow); Glucose, Dipstick Normal (Normal); Ketone-Dipstick Negative (Negative); Leukocyte Esterase-Dipstick Negative /ul (Negative); Nitrite-Dipstick Negative (Negative); Occult Blood-Urine Negative /ul (Negative); Protein-Dipstick Negative (Negative); Urine Bilirubin Dipstick Negative (Negative); Urine Clarity Sl. Cloudy (Clear); Urine Urobilinogen Normal (Normal); Urine pH 6.5 (5.0 - 8.0)
[2020-04-01 19:39] LABS: Squamous Epithelial Cells - UA 0-5 SEEN /hpf (5-10)
[2020-04-01 19:48] LABS: Absolute Lymphocyte Count 1.84 X10^3/uL (0.83-4.51); Basophil# 0.02 X10^3/uL; Basophil% 0.2 % (0-1); Eosinophil# 0.12 X10^3/uL; Eosinophils% 1.4 % (0-5); Hematocrit 38.7 % (37-47); Hemoglobin 12.1 g/dL (12.0-15.0); Lymphocyte # 1.84 X10^3/ul (4.0); Lymphocyte % 21.2 % (19-41); Mean Corp Hgb Conc 31.3 g/dL (32-36); Mean Corpuscular Hgb 29.2 pg (27.0-32.0); Mean Corpuscular Volume 93.3 fL (81-99); Mean Platelet Vol. 9.4 fl (6.2-12.0); Monocyte# 0.72 X10^3/uL; Monocyte% 8.3 % (0-10); NRBC Flagged by Analyzer 0 % (0-5); Neutrophil # 5.95 X10^3/uL (2.7-7.7); Neutrophil % 68.7 % (47-70); Platelet Count 260 K/mm3 (150-450); RBC Distribution Width CV 13.3 % (11.6-14.6); RBC Distribution Width SD 45.4 fl (35.1-43.9); Red Blood Count 4.15 M/mm3 (4.2-5.4); White Blood Count 8.7 K/mm3 (4.4-11.0)
[2020-04-01 20:00] LABS: AST(SGOT) 24 U/L (15-37); Alanine Aminotransfer ALT/SGPT 23 U/L (13-56); Albumin, Serum 3.4 g/dL (3.2-5.0); Alkaline Phosphatase 77 U/L (45-117); Anion Gap 5 (5-15); BUN 10 mg/dL (7-18); Calcium,Total 8.7 mg/dL (8.5-10.1); Chloride 108 mmol/L (98-107); Creatinine, Serum 0.83 mg/dL (0.55-1.02); EST Glomerular Filtration Rate 84 mL/min (>60); Est Glom Filt Rate - Afr Amer 102 mL/min (>60); Estimated Creatinine Clearance 77.67 ml/min; Globulin 3.4 g/dL (2.2-4.2); Glucose 104 mg/dL (74-106); Potassium 4.3 mmol/L (3.5-5.1); Protein, Total 6.8 g/dL (6.4-8.2); Sodium Level 141 mmol/L (136-145)
[2020-04-01 20:02] LABS: Internal QC Validated? YES +Cl - CLEAR BKGD; Pregnancy, Serum, hCG Quali. NEGATIVE Negative
--- NOTE | 2020-04-01 20:19 | ED.DCSUM_ITS ---
History of Present Illness Chief Complaint: Hypertension Informant: Patient Onset: Today Context: Gradual Onset Timing: Intermittent Current Severity: Mild Maximum Severity: Moderate Narrative: Patient is a 29-year-old female that presents to the emergency department elevated blood pressure. The patient states that today, she felt mildly nauseated at work. She states that she took her blood pressure and it was elevated at 160. She states she had a dull frontal headache that is since resolved. She denies chest pain. She denies shortness of breath. She states t hat she did have elevated blood pressure during her last 3 years ago, but never had to be treated. She states her blood pressure is normally normal. She denies fevers or chills. She denies any other infectious symptoms. Prior similar symptoms: No Recent Illness/Hospitalization: No Past Medical History - Allergies and Home Meds Allergies/Adverse Reactions: Allergies erythromycin lactobionate [From Erythrocin] Allergy (Verified 04/01/20 18:56) Unknown menthol [From BenGay] Allergy (Verified 04/01/20 18:56) Hives methyl salicylate [From BenGay] Allergy (Verified 04/01/20 18:56) Hives promethazine HCl [From Phenergan] Allergy (Verified 04/01/20 18:56) Unknown Primary Care Physician: Jaun Urbina MD [Primary Care Provider] - 5-7 Days Prior records reviewed: Yes Past Medical History: None Surgical History: noncontributory Smoking Status: Never smoker Review of Systems General: Denies: Chills, Fever, Sweats Eyes: Denies: Visual changes - bilaterally, Diplopia ENT: Denies: Rhinorrhea, Sore throat Cardiovascular: Denies: Chest pain, Palpitations Respiratory: Denies: Dyspnea, Cough, Dyspnea on exertion Gastrointestinal: Reports: Nausea. Denies: Abdominal pain, Vomiting, Diarrhea, Melena, Hematochezia Genitourinary: Denies: Dysuria, Hematuria, Frequency Musculoskeletal: Denies: Back pain, Extremity Pain Skin: Denies: Rash, Wounds Neurological: Denies: Headache, Weakness, Numbness Physical Exam Vital Signs/Narrative: Vital Signs Temp Pulse Resp BP Pulse Ox 04/01/20 18:54 97.1 F L 93 17 147/78 H 100 Inital Vital Signs reviewed: Yes General: Well nourished, Well developed, No Acute Distress Head: Normocephalic, Atraumatic Eyes: Perrl, EOMI ENT: Moist mucous membranes, No rhinorrhea Neck: Supple, Nontender Cardiovascular: Regular rate, Regular rhythm, No murmurs Respiratory: No distress, CTA bilaterally, Chest nontender Abdomen: Soft, Nontender, Nondistended, Normal bowel sounds Back: Nontender, Normal Inspection Extremities: Nontender, No edema Skin: Normal color, No rash Neurological: Alert, Oriented x3, Cranial nerves II-XII grossly intact, Normal Strength, Normal Sensation Psychological: Normal affect, Normal Mood Diagnostic/Tx/Re-eval Abnormal Lab Results 04/01/20 04/01/20 04/01/20 19:20 19:30 19:30 WBC 8.7 RBC 4.15 L Hgb 12.1 Hct 38.7 MCV 93.3 MCH 29.2 MCHC 31.3 L RDW Std Deviation 45.4 H RDW Coeff of Geoff 13.3 Plt Count 260 MPV 9.4 Immature Gran % (Auto) 0.200 Neut % (Auto) 68.7 Lymph % (Auto) 21.2 [place] % (Auto) 8.3 Eos % (Auto) 1.4 Baso % (Auto) 0.2 Absolute Neuts (auto) 6.0 Absolute Lymphs (auto) 1.84 Nucleated RBC % 0 Sodium 141 Potassium 4.3 Chloride 108 H Carbon Dioxide 28.0 Anion Gap 5 BUN 10 Creatinine 0.83 Estim Creat Clear Calc 77.67 Est GFR (MDRD) Af Amer 102 Est GFR (MDRD) Non-Af 84 BUN/Creatinine Ratio 12.0 Glucose 104 Calcium 8.7 Total Bilirubin 0.20 AST 24 ALT 23 Alkaline Phosphatase 77 Total Protein 6.8 Albumin 3.4 Globulin 3.4 Albumin/Globulin Ratio 1.0 Serum , Qual Urine Color Yellow Urine Clarity Sl. Cloudy Urine pH 6.5 Ur Specific [place] 1.030 Urine Protein Negative Urine Glucose (UA) Normal Urine Ketones Negative Urine Occult Blood Negative Urine Nitrite Negative Urine Bilirubin Negative Urine Urobilinogen Normal Ur Leukocyte Esterase Negative Urine RBC 0 SEEN Urine WBC 0 SEEN Ur Squamous Epith Cells 0-5 SEEN Urine Bacteria 0 SEEN Urine Mucus 0 SEEN 04/01/20 19:30 WBC RBC Hgb Hct MCV MCH MCHC RDW Std Deviation RDW Coeff of Geoff Plt Count MPV Immature Gran % (Auto) Neut % (Auto) Lymph % (Auto) [place] % (Auto) Eos % (Auto) Baso % (Auto) Absolute Neuts (auto) Absolute Lymphs (auto) Nucleated RBC % Sodium Potassium Chloride Carbon Dioxide Anion Gap BUN Creatinine Estim Creat Clear Calc Est GFR (MDRD) Af Amer Est GFR (MDRD) Non-Af BUN/Creatinine Ratio Glucose Calcium Total Bilirubin AST ALT Alkaline Phosphatase Total Protein Albumin Globulin Albumin/Globulin Ratio Serum , Qual NEGATIVE Urine Color Urine Clarity Urine pH Ur Specific [place] Urine Protein Urine Glucose (UA) Urine Ketones Urine Occult Blood Urine Nitrite Urine Bilirubin Urine Urobilinogen Ur Leukocyte Esterase Urine RBC Urine WBC Ur Squamous Epith Cells Urine Bacteria Urine Mucus - Medical Decision Making The patient presents with hypertension. She did have some mild nausea with the onset. Her blood pressure is now basically normal. Metabolic work-up was pursued. She is not . Kidney function is normal. On reevaluation, her symptoms have totally resolved. She has normal renal function. She is had no chest pain. At this point, given the normalization of her blood pressure and lack of other findings, I do feel that holding on antihypertensives would be appropriate. I do want her to take her blood pressure at home and follow-up with her primary care. She is comfortable this plan of care. Impression 1. Hypertension ED Disposition - Plan for ED Patient: Disposition: Home or Assisted Living Instructions: ED HBP No Tx Referrals: Jaun Urbina MD [Primary Care Provider] - 5-7 Days
== END 2020-04-01 20:33 | disposition home or self-care (01) ==
LOC: ED 19:02
PROVIDERS: Emergency Provider Emergency Medicine; PCP Family Medicine
DX: I10 Essential (primary) hypertension (principal)
CPT/HCPCS: 80053; 81001; 84703; 85025; 99285; A4216

== ENCOUNTER 2020-07-02 18:48 | Emergency (ER) | payer MEDICAID, SELFPAY ==
[2020-07-02 18:49] VITALS: BP 147/98; PULSE 95; RESP 18; TEMP 36.3; O2SAT 100; BMI 46.6
[2020-07-02 18:51] VITALS: BP 147/98; PULSE 95; RESP 18; TEMP 36.3; O2SAT 100
[2020-07-02 19:57] VITALS: O2SAT 96
--- NOTE | 2020-07-02 20:09 | US_ITS ---
STUDY: VENOUS DOPPLER ULTRASOUND - BILATERAL LOWER EXTREMITIES REASON FOR EXAM: Female, 29 years old. Pain and swelling TECHNIQUE: Ultrasound evaluation of the deep vein system to include nunn-scale imaging and compression was performed. Nunn-scale imaging and Doppler sonographic evaluation, including duplex spectral analysis and qualitative color flow sonography, was performed. COMPARISON: None. FINDINGS: RIGHT LEG Common Femoral Vein: Normal compression, spontaneity and augmentation. Normal color Doppler. Common Femoral Vein/Greater Saphenous Junction: Normal compression, spontaneity and augmentation. Normal color Doppler. Superficial Femoral Proximal: Normal compression, spontaneity and augmentation. Normal color Doppler. Superficial Femoral Middle: Normal compression, spontaneity and augmentation. Normal color Doppler. Superficial Femoral Distal: Normal compression, spontaneity and augmentation. Normal color Doppler. Popliteal Vein: Normal compression, spontaneity and augmentation. Normal color Doppler. Posterior Tibial Vein: Normal compression, spontaneity and augmentation. Normal color Doppler. Peroneal Vein: Normal compression, spontaneity and augmentation. Normal color Doppler. The visualized soft tissues are unremarkable. LEFT LEG Common Femoral Vein: Normal compression, spontaneity and augmentation. Normal color Doppler. Common Femoral Vein/Greater Saphenous Junction: Normal compression, spontaneity and augmentation. Normal color Doppler. Superficial Femoral Proximal: Normal compression, spontaneity and augmentation. Normal color Doppler. Superficial Femoral Middle: Normal compression, spontaneity and augmentation. Normal color Doppler. Superficial Femoral Distal: Normal compression, spontaneity and augmentation. Normal color Doppler. Popliteal Vein: Normal compression, spontaneity and augmentation. Normal color Doppler. Posterior Tibial Vein: Normal compression, spontaneity and augmentation. Normal color Doppler. Peroneal Vein: Normal compression, spontaneity and augmentation. Normal color Doppler. The visualized soft tissues are unremarkable. US/Venous Duplex Imag/Satya Extrem IMPRESSION: Normal venous Doppler ultrasound of the bilateral lower extremities. Electronically Signed: Leodan Burks MD at 20:49 EST Tel , Service support ,
[2020-07-02 20:13] LABS: Absolute Lymphocyte Count 1.56 X10^3/uL (0.83-4.51); Absolute Neutrophil Count 7.3 X10^3/uL (2.0-7.7); Basophil# 0.03 X10^3/uL; Basophil% 0.3 % (0-1); Eosinophil# 0.14 X10^3/uL; Eosinophils% 1.4 % (0-5); Hematocrit 37.6 % (37-47); Hemoglobin 11.8 g/dL (12.0-15.0); Lymphocyte # 1.56 X10^3/ul (4.0); Mean Corp Hgb Conc 31.4 g/dL (32-36); Mean Corpuscular Hgb 28.9 pg (27.0-32.0); Mean Corpuscular Volume 91.9 fL (81-99); Mean Platelet Vol. 10.1 fl (6.2-12.0); Monocyte% 7.2 % (0-10); NRBC Flagged by Analyzer 0 % (0-5); Neutrophil # 7.25 X10^3/uL (2.7-7.7); Neutrophil % 74.7 % (47-70); Platelet Count 249 K/mm3 (150-450); RBC Distribution Width CV 13.4 % (11.6-14.6); RBC Distribution Width SD 45.5 fl (35.1-43.9); Red Blood Count 4.09 M/mm3 (4.2-5.4); White Blood Count 9.7 K/mm3 (4.4-11.0)
[2020-07-02 20:22] LABS: Anion Gap 5 (5-15); BUN 10 mg/dL (7-18); BUN/Creat Ratio 12.7 RATIO (10-20); Calcium,Total 8.6 mg/dL (8.5-10.1); Chloride 109 mmol/L (98-107); Creatinine, Serum 0.78 mg/dL (0.55-1.02); EST Glomerular Filtration Rate 90 mL/min (>60); Est Glom Filt Rate - Afr Amer 109 mL/min (>60); Estimated Creatinine Clearance 82.65 ml/min; Glucose 124 mg/dL (74-106); Potassium 3.5 mmol/L (3.5-5.1); Sodium Level 140 mmol/L (136-145)
[2020-07-02 20:27] LABS: D-Dimer Quantitative (DVT/PE) <= 0.27 FEU/ug/m (0.27-0.49); Internal QC Validated? YES +Cl - CLEAR BKGD; Pregnancy, Serum, hCG Quali. NEGATIVE Negative
[2020-07-02 20:44] VITALS: BP 123/86; PULSE 87; RESP 16; O2SAT 97
--- NOTE | 2020-07-02 21:25 | ED.VISSUMM ---
- ER Visit Summary Date of Service: 07/02/20 Chief Complaint: Upper back pain History of Present Illness: The patient is a [address] Urbina. She reports that she tested positive for Covid on June 17. She had upper back pain for the past week. She reports she has a cough is nonproductive. She denies any fever or chills. She reports she has pressure to ears on and off. She denies any pain at this time. She denies sore throat. She does report that she has moderate difficulty breathing with exertion. She denies any shortness of breath now. Patient reports that she has bilateral calf pain that is 5-10 with movement she is pain-free at rest. She denies any trauma. 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 Her last dose was this morning. Physical Examination: Vitals: Stable. Afebrile. General: Well-nourished and well-developed. Head: Normocephalic atraumatic. HEENT: Serous effusion bilaterally with no evidence of purulent otitis media. Neck: Supple, no lymphadenopathy. No JVD. Nontender. Cardiovascular: Regular rate and rhythm. No murmurs. Respiratory: No respiratory distress. Clear to auscultation bilaterally. Abdominal: Soft, nontender, nondistended, normal bowel sounds. No guarding, rebound, or peritoneal signs. Back: Nontender. Extremities: Mild tenderness to her calves bilaterally, no edema. Skin: Normal color, no rash. Neurologic: Alert and oriented ?3. Cranial nerves II through XII are intact. Normal strength and sensation. Psych: Normal affect. Test Results: CBC shows a hemoglobin 11.8, segmented for 75, lymphs at 16. Chem-7 shows a chloride of 109 glucose 124. D-dimer is negative. test is negative. Bilateral lower extremity Dopplers are negative. Emergency Department Course and Treatment: Patient had a chest x-ray this morning at [facility] and refused a chest x-ray here. I was able to review the reading for this and it was normal. She refused pain medications and is resting comfortably. Treatment Plan: This time I do not have an explanation for the patient's pain. She is stable. She will be discharged with symptomatic care. Instructed to follow-up with her primary care physician in 3 to 5 days if not improving. Return to the emergency department for any worsening symptoms. Disposition: To home in improved and stable condition. Impression: 1 1. Upper back pain. 2. History of PE. 3. Coagulopathy on Eliquis. This note was generated with Yu[employer] dictation software. It may contain incorrect words, spelling, and punctuation that were not noted in review of the chart prior to signing ED Disposition - Plan for ED Patient: Instructions: ED Back and Neck Pain, General Referrals: Jaun Urbina MD [Primary Care Provider] - 3-5 Days if not improving
[2020-07-02 21:45] VITALS: BP 129/84; PULSE 91; RESP 21; O2SAT 96
== END 2020-07-02 21:45 | disposition home or self-care (01) ==
LOC: ED 19:44
PROVIDERS: Emergency Provider Emergency Medicine; PCP Family Medicine
DX: M54.6 Pain in thoracic spine (principal); D68.9 Coagulation defect, unspecified; Z79.02 Long term (current) use of antithrombotics/antiplatelets; Z86.711 Personal history of pulmonary embolism; Z86.718 Personal history of other venous thrombosis and embolism
CPT/HCPCS: 80048; 84703; 85025; 85379; 93970; 99285; A4216

== ENCOUNTER 2020-07-06 09:34 | Outpatient (RCR) | payer MEDICAID, SELFPAY | END 2020-07-18 23:59 | LOC: NS 09:34 | PROVIDERS: PCP Family Medicine; Visit Provider Family Medicine | DX: Z71.3 Dietary counseling and surveillance (principal); E66.01 Morbid (severe) obesity due to excess calories; Z68.42 Body mass index [BMI] 45.0-49.9, adult | CPT/HCPCS: 97802 ==

== ENCOUNTER 2020-08-10 17:00 | Outpatient (RCR) | payer MEDICAID, SELFPAY | END 2020-08-15 23:59 | LOC: NS 17:00 | PROVIDERS: PCP Family Medicine; Visit Provider Family Medicine | DX: Z71.3 Dietary counseling and surveillance (principal); E66.01 Morbid (severe) obesity due to excess calories; Z68.42 Body mass index [BMI] 45.0-49.9, adult | CPT/HCPCS: 97803 ==

== ENCOUNTER 2020-08-24 09:53 | Outpatient (RCR) | payer MEDICAID, SELFPAY | END 2020-09-15 23:59 | LOC: NS 09:53 | PROVIDERS: PCP Family Medicine; Visit Provider Family Medicine | DX: Z71.3 Dietary counseling and surveillance (principal); E66.01 Morbid (severe) obesity due to excess calories; Z68.42 Body mass index [BMI] 45.0-49.9, adult | CPT/HCPCS: 97803 ==

== ENCOUNTER 2020-10-12 09:30 | Outpatient (RCR) | payer MEDICAID, SELFPAY | END 2020-10-15 23:59 | LOC: NS 09:30 | PROVIDERS: PCP Family Medicine; Visit Provider Family Medicine | DX: Z71.3 Dietary counseling and surveillance (principal); E66.01 Morbid (severe) obesity due to excess calories; Z68.42 Body mass index [BMI] 45.0-49.9, adult | CPT/HCPCS: 97803 ==

== ENCOUNTER 2020-11-09 10:30 | Outpatient (RCR) | payer MEDICAID, SELFPAY | END 2020-11-15 23:59 | LOC: NS 10:30 | PROVIDERS: PCP Family Medicine; Visit Provider Family Medicine | DX: Z71.3 Dietary counseling and surveillance (principal); E66.01 Morbid (severe) obesity due to excess calories; Z68.42 Body mass index [BMI] 45.0-49.9, adult | CPT/HCPCS: 97803 ==

== ENCOUNTER 2020-12-06 09:30 | Outpatient (RCR) | payer MEDICAID, SELFPAY | END 2020-12-15 23:59 | LOC: NS 09:30 | PROVIDERS: PCP Family Medicine; Visit Provider Family Medicine | DX: Z71.3 Dietary counseling and surveillance (principal); E66.01 Morbid (severe) obesity due to excess calories; Z68.42 Body mass index [BMI] 45.0-49.9, adult | CPT/HCPCS: 97803 ==

== ENCOUNTER 2021-01-04 10:30 | Outpatient (RCR) | payer MEDICAID, SELFPAY | END 2021-01-15 23:59 | LOC: NS 10:30 | PROVIDERS: PCP Family Medicine; Visit Provider Family Medicine | DX: Z71.3 Dietary counseling and surveillance (principal); E66.01 Morbid (severe) obesity due to excess calories; Z68.42 Body mass index [BMI] 45.0-49.9, adult | CPT/HCPCS: 97802; 97803 ==

== ENCOUNTER 2021-02-08 09:30 | Outpatient (RCR) | payer MEDICAID, SELFPAY | END 2021-02-15 23:59 | LOC: NS 09:30 | PROVIDERS: PCP Family Medicine; Visit Provider Family Medicine | DX: Z71.3 Dietary counseling and surveillance (principal); E66.01 Morbid (severe) obesity due to excess calories; Z68.42 Body mass index [BMI] 45.0-49.9, adult | CPT/HCPCS: 97803 ==

== ENCOUNTER 2021-03-08 16:56 | Outpatient (RCR) | payer MEDICAID, SELFPAY ==
[2021-02-16 00:30] VITALS: BMI 46.6
== END 2021-03-17 23:59 ==
LOC: NS 16:56
PROVIDERS: PCP Family Medicine; Visit Provider Family Medicine
DX: Z71.3 Dietary counseling and surveillance (principal); E66.01 Morbid (severe) obesity due to excess calories; Z68.42 Body mass index [BMI] 45.0-49.9, adult
CPT/HCPCS: 97803

== ENCOUNTER 2021-04-05 16:30 | Outpatient (RCR) | payer MEDICAID, SELFPAY ==
[2021-03-18 00:24] VITALS: BMI 46.6
== END 2021-04-17 23:59 ==
LOC: NS 16:30
PROVIDERS: PCP Family Medicine; Visit Provider Family Medicine
DX: Z71.3 Dietary counseling and surveillance (principal); E66.01 Morbid (severe) obesity due to excess calories; Z68.42 Body mass index [BMI] 45.0-49.9, adult
CPT/HCPCS: 97803

== ENCOUNTER 2021-05-10 10:00 | Outpatient (RCR) | payer MEDICAID, SELFPAY ==
[2021-04-18 00:20] VITALS: BMI 46.6
== END 2021-05-17 23:59 ==
LOC: NS 10:00
PROVIDERS: PCP Family Medicine; Visit Provider Family Medicine
DX: Z71.3 Dietary counseling and surveillance (principal); E66.01 Morbid (severe) obesity due to excess calories; Z68.42 Body mass index [BMI] 45.0-49.9, adult
CPT/HCPCS: 97803

== ENCOUNTER 2021-05-24 13:38 | Outpatient (RCR) | payer MEDICAID, SELFPAY ==
[2021-05-18 00:25] VITALS: BMI 46.6
== END 2021-06-17 23:59 ==
LOC: NS 13:38
PROVIDERS: PCP Family Medicine; Visit Provider Family Medicine
DX: Z71.3 Dietary counseling and surveillance (principal); E66.01 Morbid (severe) obesity due to excess calories; Z68.42 Body mass index [BMI] 45.0-49.9, adult
CPT/HCPCS: 97803

== ENCOUNTER 2021-07-13 08:46 | Outpatient (RCR) | payer MEDICAID, SELFPAY ==
[2021-06-18 00:24] VITALS: BMI 46.6
== END 2021-07-18 23:59 ==
LOC: NS 08:46
PROVIDERS: PCP Family Medicine; Visit Provider Family Medicine
DX: Z71.3 Dietary counseling and surveillance (principal); E66.01 Morbid (severe) obesity due to excess calories; Z68.41 Body mass index [BMI] 40.0-44.9, adult
CPT/HCPCS: 97803

== ENCOUNTER 2021-08-03 08:27 | Outpatient (RCR) | payer MEDICAID, SELFPAY ==
[2021-07-19 00:29] VITALS: BMI 46.6
== END 2021-08-15 23:59 ==
LOC: NS 08:27
PROVIDERS: PCP Family Medicine; Referring Provider Family Medicine; Visit Provider Family Medicine
DX: Z71.3 Dietary counseling and surveillance (principal); E66.01 Morbid (severe) obesity due to excess calories; Z68.41 Body mass index [BMI] 40.0-44.9, adult
CPT/HCPCS: 97803

== ENCOUNTER 2021-09-13 09:00 | Outpatient (RCR) | payer MEDICAID, SELFPAY ==
[2021-08-16 00:27] VITALS: BMI 46.6
== END 2021-09-15 23:59 ==
LOC: NS 09:00
PROVIDERS: PCP Family Medicine; Referring Provider Family Medicine; Visit Provider Family Medicine
DX: Z71.3 Dietary counseling and surveillance (principal); E66.01 Morbid (severe) obesity due to excess calories; Z68.41 Body mass index [BMI] 40.0-44.9, adult
CPT/HCPCS: 97803

== ENCOUNTER 2022-04-08 18:53 | Emergency (ER) | payer MEDICAID, SELFPAY ==
[2022-04-08 18:55] VITALS: BP 148/99; PULSE 93; RESP 16; TEMP 36.3; O2SAT 97; BMI 45.9
--- NOTE | 2022-04-08 19:00 | EKG12_ITS ---
Test Reason : DYSRHYTHMIA Blood Pressure : / mmHG Vent. Rate : 082 BPM Atrial Rate : 082 BPM P-R Int : 142 ms QRS Dur : 094 ms QT Int : 384 ms P-R-T Axes : 050 065 033 degrees QTc Int : 448 ms Normal sinus rhythm Normal ECG Confirmed by JOHN DENNY, PAULA ([id number]), medical transcription editor NOMAN MADDEN ([id number]) on 04/11/2022 1:30:29 PM Referred By: CHANO Confirmed By:PAULA LOPEZ MD
[2022-04-08 19:49] LABS: Mucous, Urine 0 SEEN /hpf (<or=2+)
[2022-04-08 19:52] LABS: Absolute Lymphocyte Count 1.39 X10^3/uL (0.83-4.51); Absolute Neutrophil Count 4.4 X10^3/uL (2.0-7.7); Basophil# 0.03 X10^3/uL; Basophil% 0.5 % (0-1); Eosinophil# 0.12 X10^3/uL; Eosinophils% 1.9 % (0-5); Hematocrit 40.5 % (37-47); Hemoglobin 12.6 g/dL (12.0-15.0); Lymphocyte # 1.39 X10^3/ul (0.83-4.51); Lymphocyte % 21.5 % (19-41); Mean Corp Hgb Conc 31.1 g/dL (32-36); Mean Corpuscular Hgb 29.1 pg (27.0-32.0); Mean Corpuscular Volume 93.5 fL (81-99); Mean Platelet Vol. 9.8 fl (6.2-12.0); Monocyte# 0.46 X10^3/uL; Monocyte% 7.1 % (0-10); NRBC Flagged by Analyzer 0 % (0-5); Neutrophil # 4.44 X10^3/uL (2.7-7.7); Neutrophil % 68.7 % (47-70); Platelet Count 258 K/mm3 (150-450); RBC Distribution Width CV 13.8 % (11.6-14.6); RBC Distribution Width SD 47.1 fl (35.1-43.9); Red Blood Count 4.33 M/mm3 (4.2-5.4); White Blood Count 6.5 K/mm3 (4.4-11.0)
[2022-04-08 19:53] LABS: Color, Urine Red (Yellow); Glucose, Dipstick Normal (Normal); Ketone-Dipstick Negative (Negative); Leukocyte Esterase-Dipstick 100 /ul (Negative); Nitrite-Dipstick Positive (Negative); Occult Blood-Urine 250 /ul (Negative); Protein-Dipstick 30 mg/dl (Negative); Specific Gravity, Urine 1.005 (1.002-1.030); Urine Bilirubin Dipstick Negative (Negative); Urine Clarity Clear (Clear); Urine Urobilinogen Normal (Normal)
[2022-04-08 19:56] LABS: Internal QC Validated? YES +Cl - CLEAR BKGD; Pregnancy, Urine Negative Negative
--- NOTE | 2022-04-08 20:04 | EX.ED.DYSGE1 ---
HPI History of Present Illness Chief Complaint: Hypertension Informant: patient Narrative Narrative: Multiple complaints. Blurry vision for the past couple days. No visual loss. Today while cooking dinner felt shakes and jittery. She had a banana with no improvement. She is not a diabetic. 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 History of hypothyroidism. Denies recent vomiting or diarrhea. Denies urinary symptoms. Currently on her menstrual period. No abdominal pain. No chest pains. No cough. No fevers. Occasional headaches. Nursing notes concerns for hypertension she states she has had elevated blood pressure that is been controlled. She is not on any medications. [facility] Medical History Anemia Asthma Chronic neck and back pain Hx pulmonary embolism Shoulder pain Home Medications levothyroxine 150 mcg tablet 150 mcg PO DAILY 12/21/15 [History Last Taken Unknown] apixaban 5 mg tablet 5 mg PO BID 04/01/20 [History Last Taken Unknown] Allergy/AdvReac Type Severity Reaction Status Date / Time erythromycin lactobionate Allergy Unknown Verified 04/08/22 18:54 [From Erythrocin] menthol [From BenGay] Allergy Hives Verified 04/08/22 18:54 methyl salicylate Allergy Hives Verified 04/08/22 18:54 [From BenGay] promethazine HCl Allergy Unknown Verified 04/08/22 18:54 [From Phenergan] Family History Other Heart disease Social History Smoking Status: Never smoker ROS ROS ED Constitutional Constitutional ED: Denies chills, fever(s) or sweats Eyes Eyes: Reports blurry vision; Denies change in vision ENT ENT ED: Denies dysphagia or sore throat Cardiovascular Cardiovascular: Denies chest pain, leg edema, palpitations or racing heartbeat Respiratory/Chest Respiratory/Chest: Denies cough, dyspnea or dyspnea on exertion Gastrointestinal Gastrointestinal: Denies abdominal pain, diarrhea, nausea or vomiting Genitourinary Genitourinary ED: Denies dysuria, hematuria or urinary frequency Musculoskeletal Musculoskeletal: Denies back pain, extremity pain or neck pain Integumentary Denies rash or wounds Neurologic Neurologic: Denies headache(s), paresthesias or weakness EXAM Physical Exam Const Vital Signs: 04/08/22 18:55 04/08/22 19:21 04/08/22 20:49 Temperature 97.4 F L 98.6 F Temperature Source Temporal Pulse Rate 93 82 Respiratory Rate 16 18 Respiratory Effort Normal Respiratory Pattern Normal Blood Pressure 148/99 H 129/90 H Blood Pressure Mean 115 Pulse Ox 97 97 Oxygen Delivery Method Room Air Positive well nourished and well developed General Appearance ED: well developed and NAD HEENT Reports moist mucous membranes normocephalic and atraumatic Eyes PERRL, EOMs intact bilaterally and conjunctivae normal General Eye ED: Yes normal appearance of both eyes Neck no lymphadenopathy and supple General: Negative for tenderness Chest Wall Chest: Negative for tenderness Resp normal respiratory effort and normal air movement Effort and Inspection: symmetric chest movement; Negative for respiratory distress Cardio regular rate, regular rhythm and no murmurs Peripheral Pulses: pulses 2+ throughout GI normal to inspection, nondistended, normoactive bowel sounds and non-tender Palpation: Negative for guarding or rebound tenderness present Back/Spine no CVA tenderness and no thoracic nor lumbar tenderness Extremity normal to inspection General Extremety ED: Negative for edema or tenderness General Extremity: Negative for edema Neuro oriented x3 and no sensory deficits noted Sensorium / Orientation: awake and alert Skin no rashes or lesions noted and no wounds MDM MDM MDM Narrative Medical decision making narrative: Patient present blurry vision no recent eye exam denies vision loss. Vague complaints of shakes today. EKG was sinus with no acute findings basic labs were normal creatinine slightly elevated at 1.13. She has been oral fluids. Urine had nitrites and leukocytes RBCs, no back pain. She is on her menstrual period. She denies symptoms of her culture sent in she will not be treated unless positive. Glucose was 127 in the lab. She is reassured. Discussed outpatient follow-up with PCP for reevaluation. Patient also given follow-up with ophthalmology as an outpatient. All questions were answered. Lab Data Attestation: I reviewed the patient's lab results. Labs: Laboratory Results - last 24 hr 04/08/22 04/08/22 04/08/22 19:18 19:18 19:20 WBC 6.5 RBC 4.33 Hgb 12.6 Hct 40.5 MCV 93.5 MCH 29.1 MCHC 31.1 L RDW Std Deviation 47.1 H RDW Coeff of Geoff 13.8 Plt Count 258 MPV 9.8 Immature Gran % (Auto) 0.300 Neut % (Auto) 68.7 Lymph % (Auto) 21.5 [place] % (Auto) 7.1 Eos % (Auto) 1.9 Baso % (Auto) 0.5 Absolute Neuts (auto) 4.4 Absolute Lymphs (auto) 1.39 Nucleated RBC % 0 Sodium 140 Potassium 3.9 Chloride 106 Carbon Dioxide 27.0 Anion Gap 7 BUN 9 Creatinine 1.13 H Estim Creat Clear Calc 56.01 Est GFR (MDRD) Af Amer 71 Est GFR (MDRD) Non-Af 59 L BUN/Creatinine Ratio 8.0 L Glucose 127 H Calcium 8.9 Urine Color Red Urine Clarity Clear Urine pH 7.0 Ur Specific [place] 1.005 Urine Protein 30 H Urine Glucose (UA) Normal Urine Ketones Negative Urine Occult Blood 250 H Urine Nitrite Positive H Urine Bilirubin Negative Urine Urobilinogen Normal Ur Leukocyte Esterase 100 H Urine RBC 10-25 SEEN Urine WBC 0-5 SEEN Ur Squamous Epith Cells 0-5 SEEN Urine Bacteria RARE Urine Mucus 0 SEEN Urine Test Negative EKG Initial EKG: Attestation: I personally reviewed and interpreted this EKG as follows: Comments: Sinus rate of 82, no ST changes. Isolated T wave version in leads III and V2. Nonspecific. Discharge Plan Triage Chief Complaint: Hypertension ED Provider: Yunior Aviles Dx/Rx/DC Orders Clinical Impression: Blurred vision, Elevated blood pressure reading, Renal insufficiency, Hx pulmonary embolism Instructions: ED Blurred Vision, ED Hypertension, To Be Confirmed, ED Renal Insufficiency Prescriptions: No Action levothyroxine 150 MCG tablet 150 mcg PO DAILY apixaban 5 MG tablet 5 mg PO BID Primary Care Provider: Rosi Hart Referrals: Horacio Atkins MD [Med Staff - Active Staff] - 3-5 Days Rosi Hart [Primary Care Provider] - 5-7 Days Activity Restrictions/Additional Instructions: Urine culture pending you did not have any symptoms you will be called if any abnormalities for treatment. Creatinine 1.13 today continue oral fluids, slightly above normal. Blood pressure elevated 140/99 today. Reevaluate by your PCP. Follow-up with eye doctor for outpatient evaluation of blurry vision. Disposition Disposition: Home, Self Care Discharge Date/Time: 04/08/22 20:56
[2022-04-08 20:05] LABS: Bacteria RARE /hpf (None Seen); Red Blood Cells-Urine 10-25 SEEN /hpf (0-5); Squamous Epithelial Cells - UA 0-5 SEEN /hpf (5-10); White Blood Cells 0-5 SEEN /hpf (0-5)
[2022-04-08 20:28] LABS: Anion Gap 7 (5-15); BUN 9 mg/dL (7-18); Calcium,Total 8.9 mg/dL (8.5-10.1); Chloride 106 mmol/L (98-107); Creatinine, Serum 1.13 mg/dL (0.55-1.02); EST Glomerular Filtration Rate 59 mL/min (>60); Est Glom Filt Rate - Afr Amer 71 mL/min (>60); Estimated Creatinine Clearance 56.01 ml/min; Glucose 127 mg/dL (74-106); Potassium 3.9 mmol/L (3.5-5.1); Sodium Level 140 mmol/L (136-145)
[2022-04-08 20:49] VITALS: BP 129/90; PULSE 82; RESP 18; TEMP 37; O2SAT 97
== END 2022-04-08 20:56 | disposition home or self-care (01) ==
PROVIDERS: Emergency Provider Emergency Medicine; PCP Family Medicine; Visit Provider Emergency Medicine
DX: H53.8 Other visual disturbances (principal); R03.0 Elevated blood-pressure reading, without diagnosis of hypertension; N28.9 Disorder of kidney and ureter, unspecified; Z79.899 Other long term (current) drug therapy; Z79.01 Long term (current) use of anticoagulants; Z86.711 Personal history of pulmonary embolism
CPT/HCPCS: 80048; 81001; 81025; 85025; 87086; 87088; 93005; 99282

== ENCOUNTER 2022-11-07 07:09 | Emergency (ER) | payer MEDICAID, SELFPAY ==
[2022-11-07 07:10] VITALS: BP 110/74; PULSE 74; RESP 18; TEMP 36.3; O2SAT 100; BMI 36.1
--- NOTE | 2022-11-07 07:17 | EX.ED.DYSGE1 ---
HPI History of Present Illness Chief Complaint: Chest Other Informant: patient Onset/Context/Timing Onset: Days Timing: Intermittent Narrative Narrative: Patient presents with right-sided pain. She points to the lower ribs and right upper quadrant area and describing her area of pain. She states pains been present for couple days and has not improved with Tylenol. She states pain does seem to be worse with certain movements. She denies any injury. [facility] Medical History (Updated 11/07/22 @ 08:[address] Asya Rivas MD) Anemia Asthma Chronic neck and back pain Hx pulmonary embolism Shoulder pain Home Medications levothyroxine 150 mcg tablet 150 mcg PO DAILY 12/21/15 [History Last Taken Unknown] apixaban 5 mg tablet 5 mg PO BID 04/01/20 [History Last Taken Unknown] lidocaine 5 % topical patch (Lidoderm) 1 patch topical DAILY #15 ea 11/07/22 [Rx Last Taken Unknown] tramadol 50 mg tablet 50 mg PO Q4H PRN PRN Pain #20 tabs 11/07/22 [Rx Last Taken Unknown] Allergy/AdvReac Type Severity Reaction Status Date / Time erythromycin lactobionate Allergy Unknown Verified 11/07/22 07:47 [From Erythrocin] menthol [From BenGay] Allergy Hives Verified 11/07/22 07:47 methyl salicylate Allergy Hives Verified 11/07/22 07:47 [From BenGay] promethazine HCl Allergy Unknown Verified 11/07/22 07:47 [From Phenergan] Family History Other Heart disease Surgical History H/O gastric sleeve Social History Smoking Status: Former smoker ROS ROS ED Constitutional Constitutional ED: Denies chills or fever(s) Eyes Eyes: Denies change in vision or discharge from eye(s) ENT ENT ED: Denies discharge from eye(s), rhinorrhea or sore throat Cardiovascular Cardiovascular: Reports chest pain; Denies palpitations Respiratory/Chest Respiratory/Chest: Denies cough or dyspnea Gastrointestinal Gastrointestinal: Reports abdominal pain; Denies diarrhea, nausea or vomiting Genitourinary Genitourinary ED: Denies difficulty urinating or dysuria Musculoskeletal Musculoskeletal: Denies back pain or extremity pain Integumentary Denies Abrasions or rash Neurologic Neurologic: Denies headache(s) or weakness Psychiatric Psychiatric: Denies anxiety or depression Allergic/Immunologic Allergic/Immunologic ED: Denies lip swelling or urticaria EXAM Physical Exam Const Vital Signs: 11/07/22 07:10 11/07/22 07:18 Temperature 97.4 F L Temperature Source Temporal Pulse Rate 74 Respiratory Rate 18 Respiratory Effort Normal Respiratory Pattern Normal Blood Pressure 110/74 Blood Pressure Mean 86 Pulse Ox 100 Oxygen Delivery Method Room Air Positive well nourished and well developed General Appearance ED: well developed HEENT Reports normocephalic and head/scalp atraumatic Eyes PERRL and EOMs intact bilaterally Neck supple Chest Wall inspection of chest normal Chest Narrative: Mild tenderness outpatient over the lower ribs on the right. No overlying skin change. Resp normal respiratory effort and clear to auscultation bilaterally Cardio regular rate and regular rhythm GI normal to inspection, nondistended, normoactive bowel sounds Palpation: soft Extremity normal to inspection Neuro oriented x3 and no sensory deficits noted Sensorium / Orientation: alert Motor Exam: strength 5/5 throughout Psych mental status grossly normal Skin no rashes or lesions noted MDM MDM MDM Narrative Medical decision making narrative: Patient was given a dose of IV Toradol for pain. Labwork obtained to evaluate for leukocytosis, anemia, and electrolyte derangement. Acute abdominal series obtained to evaluate ribs, lungs, bowel gas pattern. Lab Data Attestation: I reviewed the patient's lab results. Labs: Laboratory Results - last 24 hr 11/07/22 11/07/22 07:35 07:35 WBC 5.1 RBC 4.22 Hgb 12.3 Hct 39.9 MCV 94.5 MCH 29.1 MCHC 30.8 L RDW Std Deviation 50.5 H RDW Coeff of Geoff 14.6 Plt Count 232 MPV 9.9 Immature Gran % (Auto) 0.000 Neut % (Auto) 65.1 Lymph % (Auto) 23.9 [place] % (Auto) 8.8 Eos % (Auto) 1.6 Baso % (Auto) 0.6 Absolute Neuts (auto) 3.3 Absolute Lymphs (auto) 1.22 Nucleated RBC % 0 Sodium 141 Potassium 4.3 Chloride 111 H Carbon Dioxide 26.0 Anion Gap 4 L BUN 11 Creatinine 0.80 Estim Creat Clear Calc 78.37 Est GFR (MDRD) Af Amer 105 Est GFR (MDRD) Non-Af 87 BUN/Creatinine Ratio 13.7 Glucose 95 Calcium 8.7 Total Bilirubin 0.40 Direct Bilirubin 0.14 AST 71 H ALT 51 Alkaline Phosphatase 54 Total Protein 6.9 Albumin 3.4 Globulin 3.5 Lipase 34 Radiography Diagnostic Testing: Clinical Impression(s) from Imaging Studies Acute Abdomen Series 11/07/22 07:45 IMPRESSION: Clear lungs. No bowel obstruction. Electronically Signed: Leodan Burks MD at 8:09 EDT , Treatment and Re-Evaluation :: On repeat evaluation patient resting comfortably. CBC and chemistry studies unremarkable. AST is elevated at 71, however remainder of all LFTs are unremarkable and lipase is normal. Acute abdominal series per my interpretation reveals normal lungs and ribs. Nonobstructive bowel gas pattern noted. No acute findings appreciated in the right upper quadrant. Test results are discussed with the patient. She does seem to have increased pain with movement. Because of her gastric sleeve she cannot take anti-inflammatories orally. She will continue Tylenol and I will write her a few tramadol for pain as well as Lidoderm patches. Return instructions given. Discharge Plan Triage Chief Complaint: Chest Other ED Provider: Asya Rivas Dx/Rx/DC Orders Clinical Impression: Abdominal pain Instructions: ED Abdominal Pain Unkn Cause Fem Prescriptions: New lidocaine [Lidoderm] 5 % adhesive patch,medicated 1 patch topical DAILY Qty: 15 0RF Rx Instructions: leave on most painful area for up to 12 hrs tramadol 50 mg tablet 50 mg PO Q4H PRN PRN (Reason: Pain) Qty: 20 0RF No Action levothyroxine 150 MCG tablet 150 mcg PO DAILY apixaban 5 MG tablet 5 mg PO BID Stand Alone Forms: ED Work / School Excuse Primary Care Provider: ROSI HART Referrals: Rosi Hart OLS [Non-Staff] - 1 Week if not improving Disposition Disposition: Home, Self Care
[2022-11-07] MEDS: Ketorolac 30 MG/ML Syringe IV (07:39)
[2022-11-07 07:44] LABS: Absolute Lymphocyte Count 1.22 X10^3/uL (0.83-4.51); Absolute Neutrophil Count 3.3 X10^3/uL (2.0-7.7); Basophil# 0.03 X10^3/uL; Basophil% 0.6 % (0-1); Eosinophil# 0.08 X10^3/uL; Eosinophils% 1.6 % (0-5); Hematocrit 39.9 % (37-47); Hemoglobin 12.3 g/dL (12.0-15.0); Lymphocyte # 1.22 X10^3/ul (0.83-4.51); Lymphocyte % 23.9 % (19-41); Mean Corp Hgb Conc 30.8 g/dL (32-36); Mean Corpuscular Hgb 29.1 pg (27.0-32.0); Mean Corpuscular Volume 94.5 fL (81-99); Mean Platelet Vol. 9.9 fl (6.2-12.0); Monocyte# 0.45 X10^3/uL; Monocyte% 8.8 % (0-10); NRBC Flagged by Analyzer 0 % (0-5); Neutrophil # 3.33 X10^3/uL (2.7-7.7); Neutrophil % 65.1 % (47-70); Platelet Count 232 K/mm3 (150-450); RBC Distribution Width CV 14.6 % (11.6-14.6); RBC Distribution Width SD 50.5 fl (35.1-43.9); Red Blood Count 4.22 M/mm3 (4.2-5.4); White Blood Count 5.1 K/mm3 (4.4-11.0)
--- NOTE | 2022-11-07 07:45 | RAD_ITS ---
STUDY: X-RAY - ACUTE ABDOMINAL SERIES REASON FOR EXAM: Female, 32 years old. Pain TECHNIQUE: Single view of the chest. 3 view(s) of the abdomen were obtained. COMPARISON: None. FINDINGS: The lungs are clear. There are no pleural effusions. There is no pneumothorax. The heart is normal in size. There is no bowel obstruction. There is air and stool to the level of the rectum. The visualized osseous structures are within normal limits. RAD/Acute Abdomen Inc Chest IMPRESSION: Clear lungs. No bowel obstruction. Electronically Signed: Leodan Burks MD at 8:09 EDT ,
[2022-11-07 08:03] LABS: AST(SGOT) 71 U/L (15-37); Alanine Aminotransfer ALT/SGPT 51 U/L (13-56); Albumin, Serum 3.4 g/dL (3.2-5.0); Alkaline Phosphatase 54 U/L (45-117); Anion Gap 4 (5-15); BUN 11 mg/dL (7-18); BUN/Creat Ratio 13.7 RATIO (10-20); Bilirubin, Direct 0.14 mg/dL (0.00-0.30); Calcium,Total 8.7 mg/dL (8.5-10.1); Chloride 111 mmol/L (98-107); EST Glomerular Filtration Rate 87 mL/min (>60); Est Glom Filt Rate - Afr Amer 105 mL/min (>60); Estimated Creatinine Clearance 78.37 ml/min; Globulin 3.5 g/dL (2.2-4.2); Glucose 95 mg/dL (74-106); Lipase 34 U/L (13-75); Potassium 4.3 mmol/L (3.5-5.1); Protein, Total 6.9 g/dL (6.4-8.2); Sodium Level 141 mmol/L (136-145)
[2022-11-07 08:50] VITALS: RESP 16; O2SAT 100
== END 2022-11-07 08:51 | disposition home or self-care (01) ==
PROVIDERS: Emergency Provider Emergency Medicine; PCP Family Medicine; Visit Provider Emergency Medicine
DX: R10.11 Right upper quadrant pain (principal); Z87.891 Personal history of nicotine dependence; Z79.01 Long term (current) use of anticoagulants; Z86.711 Personal history of pulmonary embolism; R10.31 Right lower quadrant pain
CPT/HCPCS: 74022; 80048; 80076; 83690; 85025; 96374; 99282; A4216

== ENCOUNTER 2023-05-15 09:03 | Emergency (ER) | payer MEDICAID, SELFPAY ==
[2023-05-15 09:04] VITALS: BP 127/56; PULSE 57; RESP 16; TEMP 36.4; O2SAT 100; BMI 36.6
--- NOTE | 2023-05-15 09:26 | EKG12_ITS ---
Test Reason : DIZZINESS Blood Pressure : / mmHG Vent. Rate : 048 BPM Atrial Rate : 048 BPM P-R Int : 142 ms QRS Dur : 082 ms QT Int : 438 ms P-R-T Axes : 044 054 013 degrees QTc Int : 391 ms Sinus bradycardia Otherwise normal ECG Confirmed by AVINASH DENNY, PALOMO ([id number]), editor producer NOMAN MADDEN ([id number]) on 05/16/2023 11:03:28 AM Referred By: Confirmed By:PALOMO DA SILVA MD
--- NOTE | 2023-05-15 09:38 | EX.ED.DYSGE1 ---
HPI History of Present Illness Chief Complaint: Dizziness Informant: patient Narrative Narrative: 32-year-old female presenting to the emergency room with lightheadedness. 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 She went to the nurses station and her blood pressure was slightly elevated. Symptoms continued so she went to her [employer] supervisor's office and sat down. She states she was shaking and was given orange juice. She denies chest pain or palpitations. She states she is on Eliquis due to prior PEs. She does not believe she has missed any dosing. She denies any thyroid issues but she is on levothyroxine. She states that a couple weeks ago she went to urgent care with a backache had a negative urine and was treated for a vaginal bacterial infection. She does not remember what she was treated for or with what. No significant diarrhea or volume losses. No recent fevers. No shortness of breath. [facility] Medical History Anemia Asthma Chronic neck and back pain Hx pulmonary embolism Shoulder pain Home Medications levothyroxine 150 mcg tablet 150 mcg PO DAILY 12/21/15 [History Last Taken Unknown] apixaban 5 mg tablet 5 mg PO BID 04/01/20 [History Last Taken Unknown] lidocaine 5 % topical patch (Lidoderm) 1 patch topical DAILY #15 ea 11/07/22 [Rx Last Taken Unknown] tramadol 50 mg tablet 50 mg PO Q4H PRN PRN Pain #20 tabs 11/07/22 [Rx Last Taken Unknown] Allergy/AdvReac Type Severity Reaction Status Date / Time erythromycin lactobionate Allergy Unknown Verified 05/15/23 09:20 [From Erythrocin] menthol [From BenGay] Allergy Hives Verified 05/15/23 09:20 methyl salicylate Allergy Hives Verified 05/15/23 09:20 [From BenGay] promethazine HCl Allergy Unknown Verified 05/15/23 09:20 [From Phenergan] Family History Other Heart disease Surgical History H/O gastric sleeve Social History Smoking Status: Former smoker ROS ROS ED Constitutional Constitutional ED: Denies chills or weight loss Eyes Eyes: Denies change in vision or diplopia ENT ENT ED: Denies ear pain, rhinorrhea or sore throat Cardiovascular Cardiovascular: Reports other Details: Lightheadedness ; Denies chest pain, orthopnea, palpitations or racing heartbeat Respiratory/Chest Respiratory/Chest: Denies cough, dyspnea or orthopnea Gastrointestinal Gastrointestinal: Denies abdominal pain, diarrhea, nausea or vomiting Genitourinary Genitourinary ED: Denies dysuria, hematuria or urinary frequency Musculoskeletal Musculoskeletal: Denies arthralgias or myalgias Integumentary Denies abscess or rash Neurologic Neurologic: Denies headache(s) or weakness Psychiatric Psychiatric: Denies anxiety, depression, suicidal ideation or suicidal thoughts Endocrine Endocrinology: Denies polydipsia, polyphagia or polyuria Allergic/Immunologic Allergic/Immunologic ED: Denies mouth swelling, tongue swelling or urticaria EXAM Physical Exam Const Vital Signs: 05/15/23 09:04 05/15/23 09:20 Temperature 97.5 F L Temperature Source Temporal Pulse Rate 57 L Respiratory Rate 16 Respiratory Effort Normal Non-Labored Respiratory Pattern Normal Blood Pressure 127/56 H Blood Pressure Mean 79 Pulse Ox 100 Oxygen Delivery Method Room Air Positive well nourished and well developed General Appearance ED: well developed HEENT Reports normocephalic, head/scalp atraumatic and moist mucous membranes Eyes PERRL and EOMs intact bilaterally Neck no lymphadenopathy, supple and no JVD Resp normal respiratory effort and clear to auscultation bilaterally Cardio regular rate, regular rhythm and no murmurs GI normal to inspection, nondistended, normoactive bowel sounds and non-tender Palpation: soft Back/Spine no CVA tenderness and normal ROM Extremity normal to inspection General Extremety ED: Negative for edema General Extremity: Negative for edema Neuro oriented x3 and CN's II-XII intact bilaterally Sensorium / Orientation: alert Motor Exam: strength 5/5 throughout Psych mental status grossly normal Mood & Affect: Negative for depressed or tearful Skin no rashes or lesions noted and no wounds MDM MDM MDM Narrative Medical decision making narrative: My independent interpretation of the chest x-ray is no acute process. Initial EKG showed a sinus bradycardia with a rate of 48. She has been sinus in the 70s most of her time in the department. Hemoglobin 11.9 otherwise white count and platelets are normal. D-dimer is negative. Troponin 4. CMP normal. Given that she is on apixaban and has a negative D-dimer and does not have definitive symptoms of PE I do not think this is thromboembolic. She has had no chest pain or other ACS symptoms other than the sudden onset of lightheadedness. I am not seeing evidence of dysrhythmia. History & Record Review Discussion w/independent historian: Patient and Friend Additional record(s) reviewed:: Prior labs Lab Data Attestation: I reviewed the patient's lab results. Labs: Laboratory Results - last 24 hr 05/15/23 05/15/23 09:15 09:49 WBC 7.8 RBC 3.97 L Hgb 11.9 L Hct 38.7 MCV 97.5 MCH 30.0 MCHC 30.7 L RDW Std Deviation 51.0 H RDW Coeff of Geoff 14.3 Plt Count 212 MPV 9.4 Immature Gran % (Auto) 0.300 Neut % (Auto) 74.8 H Lymph % (Auto) 15.6 L [place] % (Auto) 7.7 Eos % (Auto) 1.2 Baso % (Auto) 0.4 Absolute Neuts (auto) 5.8 Absolute Lymphs (auto) 1.21 Nucleated RBC % 0 D-Dimer Quant (PE/DVT) < 0.27 L Sodium 137 Potassium 4.1 Chloride 107 Carbon Dioxide 28.0 Anion Gap 2 L BUN 12 Creatinine 0.73 Estim Creat Clear Calc 85.88 Est GFR (MDRD) Af Amer 117 Est GFR (MDRD) Non-Af 97 BUN/Creatinine Ratio 16.5 Glucose 72 L Calcium 8.2 L Total Bilirubin 0.30 AST 16 ALT 17 Alkaline Phosphatase 57 Troponin I High Sens 4 Total Protein 6.8 Albumin 3.2 Globulin 3.6 Albumin/Globulin Ratio 0.9 EKG Initial EKG: Attestation: I personally reviewed and interpreted this EKG as follows: Comments: Sinus bradycardia with a ventricular rate of 48 bpm. Prior: Unchanged (08 April 2022) Discharge Plan Triage Chief Complaint: Dizziness ED Provider: Mauro Grace Dx/Rx/DC Orders Clinical Impression: Lightheadedness, Hx pulmonary embolism, Anemia Instructions: ED Near-Fainting, Uncertain Cause Prescriptions: No Action levothyroxine 150 MCG tablet 150 mcg PO DAILY apixaban 5 MG tablet 5 mg PO BID lidocaine [Lidoderm] 5 % adhesive patch,medicated 1 patch topical DAILY Qty: 15 0RF Rx Instructions: leave on most painful area for up to 12 hrs tramadol 50 mg tablet 50 mg PO Q4H PRN PRN (Reason: Pain) Qty: 20 0RF Primary Care Provider: ESTEFANIA AKINS Referrals: ESTEFANIA AKINS DO [Primary Care Provider] - 1 Week Disposition Disposition: Home, Self Care
[2023-05-15 09:42] LABS: Absolute Lymphocyte Count 1.21 X10^3/uL (0.83-4.51); Absolute Neutrophil Count 5.8 X10^3/uL (2.0-7.7); Basophil# 0.03 X10^3/uL; Basophil% 0.4 % (0-1); Eosinophil# 0.09 X10^3/uL; Eosinophils% 1.2 % (0-5); Hematocrit 38.7 % (37-47); Hemoglobin 11.9 g/dL (12.0-15.0); Lymphocyte # 1.21 X10^3/ul (0.83-4.51); Lymphocyte % 15.6 % (19-41); Mean Corp Hgb Conc 30.7 g/dL (32-36); Mean Corpuscular Volume 97.5 fL (81-99); Mean Platelet Vol. 9.4 fl (6.2-12.0); Monocyte% 7.7 % (0-10); NRBC Flagged by Analyzer 0 % (0-5); Neutrophil # 5.83 X10^3/uL (2.7-7.7); Neutrophil % 74.8 % (47-70); Platelet Count 212 K/mm3 (150-450); RBC Distribution Width CV 14.3 % (11.6-14.6); Red Blood Count 3.97 M/mm3 (4.2-5.4); White Blood Count 7.8 K/mm3 (4.4-11.0)
[2023-05-15 10:01] LABS: ALB/GLOB Ratio 0.9 RATIO (0.9-2.4); AST(SGOT) 16 U/L (15-37); Alanine Aminotransfer ALT/SGPT 17 U/L (13-56); Albumin, Serum 3.2 g/dL (3.2-5.0); Alkaline Phosphatase 57 U/L (45-117); Anion Gap 2 (5-15); BUN 12 mg/dL (7-18); BUN/Creat Ratio 16.5 RATIO (10-20); Calcium,Total 8.2 mg/dL (8.5-10.1); Chloride 107 mmol/L (98-107); Creatinine, Serum 0.73 mg/dL (0.55-1.02); EST Glomerular Filtration Rate 97 mL/min (>60); Est Glom Filt Rate - Afr Amer 117 mL/min (>60); Estimated Creatinine Clearance 85.88 ml/min; Globulin 3.6 g/dL (2.2-4.2); Glucose 72 mg/dL (74-106); Potassium 4.1 mmol/L (3.5-5.1); Protein, Total 6.8 g/dL (6.4-8.2); Sodium Level 137 mmol/L (136-145); Troponin-I HS 4 pg/mL (3.0-54.0)
[2023-05-15 10:21] LABS: D-Dimer Quantitative (DVT/PE) < 0.27 FEU/ug/m (0.27-0.49)
--- NOTE | 2023-05-15 10:53 | RAD_ITS ---
EXAM: XR CHEST, 1 VIEW CLINICAL INDICATION: Near syncope. TECHNIQUE: Frontal view of the chest. COMPARISON: 11/07/2022. FINDINGS: LUNGS AND PLEURAL SPACES: Possible right perihilar interstitial infiltrates. No pneumothorax. No effusion. HEART: Unremarkable. Cardiac silhouette not enlarged. MEDIASTINUM: Central airways and mediastinal contour are unremarkable. BONES/JOINTS: Unremarkable. No acute fracture. SOFT TISSUES: Unremarkable. RAD/Chest 1 View (Portable) IMPRESSION: Possible right perihilar interstitial infiltrates causing prominence of the right hilum when compared to 11/07/2022. CT chest will help clarify if clinically warranted. Electronically Signed: Colin Tijerina MD at 11:32 EST ,
[2023-05-15 11:03] VITALS: PULSE 77; RESP 16; O2SAT 99
== END 2023-05-15 11:24 | disposition home or self-care (01) ==
PROVIDERS: Emergency Provider Emergency Medicine; PCP Family Medicine; Visit Provider Emergency Medicine
DX: R42 Dizziness and giddiness (principal); D64.9 Anemia, unspecified; Z79.01 Long term (current) use of anticoagulants; Z86.711 Personal history of pulmonary embolism; Z87.891 Personal history of nicotine dependence
CPT/HCPCS: 71045; 80053; 84484; 85025; 85379; 93005; 99284; A4216

== ENCOUNTER 2024-05-17 15:41 | Emergency (ER) | payer MEDICAID, SELFPAY ==
[2024-05-17 15:42] VITALS: BP 115/64; PULSE 80; RESP 18; TEMP 37; O2SAT 99; BMI 39.6
--- NOTE | 2024-05-17 16:12 | EDS_ITS ---
HPI HPI - Female History of Present Illness Chief Complaint: Vag Bld, Preg Narrative Narrative: Chief complaint and HPI: Vaginal bleeding in first trimester . 33-year-old female who is G6, P3, A2 presents for evaluation of vaginal bleeding in first trimester . Patient states her last menstrual cycle was 04/03/2024. She states on 05/04/2024 she did not start her period and therefore called her OB office. She states they did a serum test at that time and it was positive. Patient has yet to have an ultrasound. Patient states 3 days ago she started to have intermittent vaginal bleeding. She states she has had some clots which she describes more as tissue than clots. Patient states she is having mild pelvic cramping associated with this. Patient states that she is on Eliquis daily for history of PE. She was switched over to Lovenox on 05/06/2024 for this . Her previous pregnancies were all C-sections. Patient states that she could not get a hold of Dr. Larsen in the office today. She denies any chest pain, shortness of breath, nausea, vomiting, diarrhea, dysuria. Patient states that she has had sinus congestion with intermittent headache. Patient states that she was told a couple weeks ago that she had elevated liver enzymes which were supposed to be followed up by her PCP in the next couple weeks. Review of systems: See HPI Medications: As listed on the chart Allergies: As listed on the chart PFSH: Per chart Vital signs: As listed on the chart. Reviewed. Physical exam: Gen: A&O x3, NAD Head: Normocephalic, atraumatic Eyes: No sclera icterus, conjunctiva clear ENT: Moist mucous membranes Neck: Trachea midline, No JVD CV: RRR, no murmurs, no peripheral edema Resp: Lungs CTA BL, no w/r/c GI: Abd soft, non-distended, non-tender, no r/r/g Pelvic: Normal external genitalia. No lesions, masses, or rashes appreciated. No discharge. Cervix is non-friable. Cervical os is closed. Mild uterine bleeding from the cervix. No clots or tissue. No parts.. No cervical motion tenderness appreciated. No sign of PID on examination. Musc: Full ROM, no deformity Skin: Warm, dry Neuro: Alert, oriented, grossly intact, sensation intact Psych: Cooperative, appropriate mood and affect [facility] Medical History Chronic neck and back pain Asthma Anemia Shoulder pain Hx pulmonary embolism Home Medications ?Medication ?Instructions ?Recorded ?Last Taken ?Type 05/17/24 Unknown History enoxaparin 40 mg/0.4 mL 40 mg subcut DAILY 05/17/24 Unknown History subcutaneous syringe Allergy/AdvReac Type Severity Reaction Status Date / Time erythromycin lactobionate Allergy Unknown Verified 05/17/24 15:42 (From Erythrocin) menthol (From BenGay) Allergy Hives Verified 05/17/24 15:42 methyl salicylate (From Allergy Hives Verified 05/17/24 15:42 BenGay) promethazine HCl (From Allergy Unknown Verified 05/17/24 15:42 Phenergan) Family History Other Heart disease Surgical History H/O gastric sleeve Social History Smoking Status: Unknown if ever smoked EXAM Physical Exam Const Vital Signs: 05/17/24 15:42 05/17/24 18:30 Temperature 98.6 F 97.5 F L Temperature Source Temporal Pulse Rate 80 68 Respiratory Rate 18 16 Blood Pressure 115/64 105/76 Blood Pressure Mean 81 85 Pulse Ox 99 100 Oxygen Delivery Method Room Air MDM MDM MDM Narrative Medical decision making narrative: 33-year-old female who is G6, P3, A2 presents for evaluation of vaginal bleeding in first trimester . Patient is 6 weeks . She is yet to get an ultrasound. She is on Lovenox injections for history of pulmonary embolism. Differential diagnosis includes but is not limited to complete , threatened , ectopic , anemia, UTI. See pelvic exam above. Laboratory and urine workup ordered including pelvic ultrasound. CBC without leukocytosis or anemia. CMP relatively unremarkable without GWEN. Patient has no transaminitis. UA negative for UTI. No bacteria. Beta-hCG is 12,494. Vaginal ultrasound shows a single live intrauterine gestational age 6 weeks. Complex fluid in the lower uterine segment/cervical canal. Nabothian cysts in the cervix. Cardiac activity was demonstrated at 124 bpm. Given that patient follows with Dr. Larsen at [facility], I did contact her and patient was discussed. No need for repeat beta-hCG given that there is a live intrauterine . Patient still call the office early next week to make a follow-up appointment. Patient was updated of all results and confirmed understanding of the plan. Patient stable to discharge home. Return precautions explained. Impression: 1. Threatened 2. Bleeding in first trimester with abdominal cramping Lab Data Labs: Laboratory Results - last 24 hr 05/17/24 05/17/24 16:20 16:29 WBC 6.7 RBC 4.01 L Hgb 12.0 Hct 37.8 MCV 94.3 MCH 29.9 MCHC 31.7 L RDW Std Deviation 53.3 H RDW Coeff of Geoff 15.4 H Plt Count 219 MPV 9.8 Immature Gran % (Auto) 0.300 Neut % (Auto) 71.8 H Lymph % (Auto) 18.6 L [place] % (Auto) 7.7 Eos % (Auto) 1.3 Baso % (Auto) 0.3 Absolute Neuts (auto) 4.8 Absolute Lymphs (auto) 1.25 Nucleated RBC % 0 Sodium 139 Potassium 3.9 Chloride 108 H Carbon Dioxide 26.0 Anion Gap 5 BUN 15 Creatinine 0.72 Estim Creat Clear Calc 119.44 Est GFR (MDRD) Af Amer 118 Est GFR (MDRD) Non-Af 97 BUN/Creatinine Ratio 20.8 H Glucose 116 H Calcium 8.1 L Total Bilirubin 0.20 AST 19 ALT 29 Alkaline Phosphatase 51 Total Protein 6.5 Albumin 3.2 Globulin 3.3 Albumin/Globulin Ratio 1.0 HCG, Quant 60759 H Urine Color Yellow Urine Clarity Clear Urine pH 7.0 Ur Specific [place] 1.015 Urine Protein 30 H Urine Glucose (UA) Normal Urine Ketones Negative Urine Occult Blood 25 H Urine Nitrite Negative Urine Bilirubin Negative Urine Urobilinogen Normal Ur Leukocyte Esterase 25 H Urine RBC 0-5 SEEN Urine WBC 0-5 SEEN Ur Squamous Epith Cells 5-10 SEEN Urine Bacteria RARE Urine Mucus 0 SEEN Radiography Diagnostic Testing: Clinical Impression(s) from Imaging Studies Obstetrics Ultrasound 05/17/24 16:17 IMPRESSION: Single live intrauterine estimated gestational age 6 weeks 0 days based on crown-rump length. Complex fluid in the lower uterine segment/cervical canal. Electronically Signed: Anny Turner MD at 19:08 EST , Discharge Plan Triage Chief Complaint: Vag Bld, Preg ED Provider: Adalberto Goyal Dx/Rx/DC Orders Prescriptions: No Action enoxaparin 40 mg/0.4 mL syringe 40 mg subcut DAILY Primary Care Provider: ESTEFANIA AKINS Referrals: ESTEFANIA AKINS DO [Primary Care Provider] - Print Language: Malagasy
--- NOTE | 2024-05-17 16:17 | US_ITS ---
INDICATION: Vaginal bleeding, 6 weeks EXAMINATION: Ultrasound US OB Transvaginal TECHNIQUE: Transabdominal and transvaginal (for optimal evaluation of the adnexa) pelvic ultrasound was performed. Grayscale, spectral waveform, and color flow Doppler evaluation of the adnexa. COMPARISON: No relevant prior comparison study available LMP: 04/03/2024 FINDINGS: Uterus measures 13 cm length. Retroflexed. Limits detail. Gestational sac identified within the endometrial canal. Mean sac diameter 1.21 cm corresponds to estimated gestational age 6 weeks 0 days. Normal sac shape. Single pole identified within the gestational sac. Hypericum-rump length 0.22 cm corresponds to estimated gestational age 6 weeks 0 days. cardiac activity was demonstrated at 124 bpm. Yolk sac was visualized. Complex fluid within the endocervical canal lower uterine segment near the scar. Nabothian cysts in the cervix. Right ovary: 3.0 x 1.4 x 1.5 cm. Left ovary: 4.0 x 1.5 x 2.0 cm. The ovaries appear unremarkable with vascular flow demonstrated. No free fluid identified. US/Transvaginal w/Preg US IMPRESSION: Single live intrauterine estimated gestational age 6 weeks 0 days based on crown-rump length. Complex fluid in the lower uterine segment/cervical canal. Electronically Signed: Anny Turner MD at 19:08 EST ,
[2024-05-17 16:36] LABS: Mucous, Urine 0 SEEN /hpf (<or=2+)
[2024-05-17 16:37] LABS: Color, Urine Yellow (Yellow); Glucose, Dipstick Normal (Normal); Ketone-Dipstick Negative (Negative); Leukocyte Esterase-Dipstick 25 /ul (Negative); Nitrite-Dipstick Negative (Negative); Occult Blood-Urine 25 /ul (Negative); Protein-Dipstick 30 mg/dl (Negative); Specific Gravity, Urine 1.015 (1.002-1.030); Urine Bilirubin Dipstick Negative (Negative); Urine Clarity Clear (Clear); Urine Urobilinogen Normal (Normal)
[2024-05-17 16:46] LABS: Bacteria RARE /hpf (None Seen); Red Blood Cells-Urine 0-5 SEEN /hpf (0-5); Squamous Epithelial Cells - UA 5-10 SEEN /hpf (5-10); White Blood Cells 0-5 SEEN /hpf (0-5)
[2024-05-17 16:50] LABS: Absolute Lymphocyte Count 1.25 X10^3/uL (0.83-4.51); Absolute Neutrophil Count 4.8 X10^3/uL (2.0-7.7); Basophil# 0.02 X10^3/uL; Basophil% 0.3 % (0-1); Eosinophil# 0.09 X10^3/uL; Eosinophils% 1.3 % (0-5); Hematocrit 37.8 % (37-47); Lymphocyte # 1.25 X10^3/ul (0.83-4.51); Lymphocyte % 18.6 % (19-41); Mean Corp Hgb Conc 31.7 g/dL (32-36); Mean Corpuscular Hgb 29.9 pg (27.0-32.0); Mean Corpuscular Volume 94.3 fL (81-99); Mean Platelet Vol. 9.8 fl (6.2-12.0); Monocyte# 0.52 X10^3/uL; Monocyte% 7.7 % (0-10); NRBC Flagged by Analyzer 0 % (0-5); Neutrophil # 4.81 X10^3/uL (2.7-7.7); Neutrophil % 71.8 % (47-70); Platelet Count 219 K/mm3 (150-450); RBC Distribution Width CV 15.4 % (11.6-14.6); RBC Distribution Width SD 53.3 fl (35.1-43.9); Red Blood Count 4.01 M/mm3 (4.2-5.4); White Blood Count 6.7 K/mm3 (4.4-11.0)
[2024-05-17 17:09] LABS: AST(SGOT) 19 U/L (15-37); Alanine Aminotransfer ALT/SGPT 29 U/L (13-56); Albumin, Serum 3.2 g/dL (3.2-5.0); Alkaline Phosphatase 51 U/L (45-117); Anion Gap 5 (5-15); BUN 15 mg/dL (7-18); BUN/Creat Ratio 20.8 RATIO (10-20); Calcium,Total 8.1 mg/dL (8.5-10.1); Chloride 108 mmol/L (98-107); Creatinine, Serum 0.72 mg/dL (0.55-1.02); EST Glomerular Filtration Rate 97 mL/min (>60); Est Glom Filt Rate - Afr Amer 118 mL/min (>60); Estimated Creatinine Clearance 119.44 ml/min; Globulin 3.3 g/dL (2.2-4.2); Glucose 116 mg/dL (74-106); Potassium 3.9 mmol/L (3.5-5.1); Protein, Total 6.5 g/dL (6.4-8.2); Sodium Level 139 mmol/L (136-145)
[2024-05-17 17:27] LABS: hCG Titer Quant., Serum 12494 mIU/mL (1-3)
[2024-05-17 18:30] VITALS: BP 105/76; PULSE 68; RESP 16; TEMP 36.4; O2SAT 100
== END 2024-05-17 19:53 | disposition home or self-care (01) ==
PROVIDERS: Emergency Provider Surgery; PCP Family Medicine; Visit Provider Surgery
DX: O20.0 Threatened abortion (principal); O09.521 Supervision of elderly multigravida, first trimester; Z3A.01 Less than 8 weeks gestation of pregnancy; Z79.899 Other long term (current) drug therapy; Z79.01 Long term (current) use of anticoagulants; Z86.711 Personal history of pulmonary embolism
CPT/HCPCS: 76817; 80053; 81001; 84702; 85025; 99283; A4216

== ENCOUNTER 2024-05-26 19:28 | Emergency (ER) | payer MEDICAID, SELFPAY ==
[2024-05-26 19:29] VITALS: BP 132/73; PULSE 64; RESP 16; TEMP 36.2; O2SAT 100; BMI 40.4
--- NOTE | 2024-05-26 20:07 | EDS_ITS ---
HPI HPI - Female History of Present Illness Chief Complaint: Vag Bld, Preg Informant: patient Pain Pain: Positive for Pelvic Pain Onset: Today Context: Sudden Onset Timing: Continuous Quality: Positive for Cramping Location: Suprapubic Worsened by: - (Nothing) Relieved by: - (Nothing) Bleeding Issue: Positive for Vaginal bleeding Onset: Today Context: Sudden Onset Timing: Continuous Current Severity: Similar to period Maximum Severity: Similar to period Associated Symptoms Associated Symptoms: Negative for Dysuria or Frequency Test: Positive P: 3 Ab: 1 Narrative Narrative: Patient presents with pelvic pain and cramping that began tonight. Patient states it began rather suddenly. Patient admits to some vaginal bleeding. Patient denies passing any clots however. Patient states her bleeding is similar to a menstrual period. Patient states her pain is over her lower pelvic area and radiates into her back. Patient denies any passage of tissue. Patient is 5 para 3 with 1 elective . Patient is approximately 7 weeks 6 days . Patient states she had a similar episode a few weeks ago and was seen in the emergency department. Patient is on Lovenox shots for history of pulmonary emboli. [facility] Medical History (Updated 05/26/24 @ 23:[address] Karl Avila, DO) Chronic neck and back pain Asthma Anemia Shoulder pain Hx pulmonary embolism Home Medications ?Medication ?Instructions ?Recorded ?Last Taken ?Type 1 unit PO BID 05/17/24 Unknown History enoxaparin 40 mg/0.4 mL 40 mg subcut QHS 05/17/24 05/25/24 History subcutaneous syringe Allergy/AdvReac Type Severity Reaction Status Date / Time erythromycin lactobionate Allergy Unknown Verified 05/26/24 19:33 (From Erythrocin) menthol (From BenGay) Allergy Hives Verified 05/26/24 19:33 methyl salicylate (From Allergy Hives Verified 05/26/24 19:33 BenGay) promethazine HCl (From Allergy Unknown Verified 05/26/24 19:33 Phenergan) Family History Other Heart disease Surgical History Hx of section Hx of tonsillectomy H/O gastric sleeve Social History Smoking Status: Former smoker ROS ROS ED Constitutional Constitutional ED: Denies chills or fever(s) Eyes Eyes: Denies blurry vision or change in vision ENT ENT ED: Denies rhinorrhea or sore throat Cardiovascular Cardiovascular: Denies chest pain or palpitations Respiratory/Chest Respiratory/Chest: Denies cough or dyspnea Gastrointestinal Gastrointestinal: Reports abdominal pain and nausea; Denies vomiting Genitourinary Genitourinary ED: Denies dysuria or hematuria Musculoskeletal Musculoskeletal: Reports back pain; Denies neck pain Integumentary Reports rash; Denies abscess Neurologic Neurologic: Denies headache(s) or weakness Allergic/Immunologic Allergic/Immunologic ED: Denies mouth swelling or urticaria EXAM Physical Exam Const Vital Signs: 05/26/24 19:29 05/26/24 21:30 05/26/24 23:00 Temperature 97.2 F L Temperature Source Temporal Pulse Rate 64 65 64 Respiratory Rate 16 16 16 Blood Pressure 132/73 H 125/58 H 116/70 Blood Pressure Mean 92 80 85 Pulse Ox 100 98 98 Oxygen Delivery Method Room Air Room Air Room Air 05/26/24 23:22 Temperature 98.4 F Temperature Source Pulse Rate 64 Respiratory Rate 16 Blood Pressure 116/70 Blood Pressure Mean 85 Pulse Ox 98 Oxygen Delivery Method Positive well nourished and well developed General Appearance ED: well developed and NAD HEENT Reports moist mucous membranes Neck supple and no JVD Resp normal respiratory effort and clear to auscultation bilaterally Cardio regular rate and regular rhythm GI soft to palpation and non-distended Palpation: tender suprapubic (Mild); Negative for guarding Neuro oriented x3, CN's II-XII intact bilaterally and no sensory deficits noted Sensorium / Orientation: alert Motor Exam: strength 5/5 throughout Psych mental status grossly normal MDM MDM MDM Narrative Medical decision making narrative: Differential diagnosis includes spontaneous miscarriage, threatened miscarriage, ectopic , urinary tract infection, coagulopathy, and ovarian cyst. CBC will be obtained to assess for leukocytosis and anemia. Basic metabolic profile will be obtained to assess for electrolyte abnormality and renal function. Urinalysis will be obtained to assess for urinary tract infection and hematuria. Quantitative hCG will be obtained to assess for . Pelvic ultrasound will be obtained to assess for viability. PT with INR and PTT will be obtained to assess for coagulopathy. History & Record Review Additional record(s) reviewed:: Prior labs (Patient's blood type was reviewed and was A positive.) Lab Data Attestation: I reviewed the patient's lab results. Lab results narrative: CBC was reviewed and was within normal limits. Basic metabolic profile was reviewed and was within normal limits. Quantitative hCG was reviewed and was [id number]. Urinalysis was reviewed. Occult blood was 250 with 25-50 red blood cells. There is no evidence of urinary tract infection. Labs: Laboratory Results - last 24 hr 05/26/24 05/26/24 20:26 20:52 WBC 8.4 RBC 4.32 Hgb 12.9 Hct 40.0 MCV 92.6 MCH 29.9 MCHC 32.3 RDW Std Deviation 52.8 H RDW Coeff of Geoff 15.3 H Plt Count 230 MPV 9.4 Immature Gran % (Auto) 0.500 Neut % (Auto) 72.0 H Lymph % (Auto) 19.5 [place] % (Auto) 6.6 Eos % (Auto) 1.0 Baso % (Auto) 0.4 Absolute Neuts (auto) 6.1 Absolute Lymphs (auto) 1.63 Nucleated RBC % 0 Sodium 138 Potassium 3.5 Chloride 107 Carbon Dioxide 25.0 Anion Gap 6 BUN 12 Creatinine 0.69 Estim Creat Clear Calc 126.04 Est GFR (MDRD) Af Amer 124 Est GFR (MDRD) Non-Af 102 BUN/Creatinine Ratio 17.4 Glucose 89 Calcium 8.9 HCG, Quant 91000 H Urine Color Yellow Urine Clarity Cloudy Urine pH 7.0 Ur Specific [place] 1.010 Urine Protein 30 H Urine Glucose (UA) Normal Urine Ketones 50 H Urine Occult Blood 250 H Urine Nitrite Negative Urine Bilirubin Negative Urine Urobilinogen Normal Ur Leukocyte Esterase Negative Urine RBC 25-50 SEEN Urine WBC 0-5 SEEN Ur Squamous Epith Cells 0-5 SEEN Urine Bacteria 0 SEEN Urine Mucus 0 SEEN Radiography Diagnostic Testing: Clinical Impression(s) from Imaging Studies Obstetrics Ultrasound 05/26/24 20:13 IMPRESSION: Findings consistent with viable intrauterine gestation approximately 7 weeks gestational age. Small subchorionic bleed Small left ovarian cyst likely corpus luteum Electronically Signed: Ant Gonsalez MD at 22:50 EST , Pelvic ultrasound was obtained. There is a viable intrauterine gestation approximately 7 weeks. There is a small subchorionic bleed. There is a small left ovarian cyst, likely corpus luteum cyst. This was interpreted by the radiologist and was also independently reviewed by myself. Treatment and Re-Evaluation Narrative: Patient was given IV fluids. Patient is resting comfortably on reevaluation. Patient was advised of her findings. Patient was instructed to get plenty of rest. Patient was instructed to have complete vaginal rest. Patient was instructed to follow-up with her [facility] in 2 to 3 days. Patient was instructed to return if worse in any way. Patient understood and was agreeable with the plan. All questions were answered. Discharge Plan Triage Chief Complaint: Vag Bld, Preg ED Provider: Karl Avila Dx/Rx/DC Orders Clinical Impression: Threatened spontaneous , Intrauterine Instructions: Miscarriage Threatened Prescriptions: No Action enoxaparin 40 mg/0.4 mL syringe 40 mg subcut QHS 1 unit PO BID Stand Alone Forms: ED Work / School Excuse Primary Care Provider: ESTEFANIA AKINS Referrals: ESTEFANIA AKINS DO [Primary Care Provider] - 5-7 Days Kateryna Larsen MD [Non-Staff] - 2 Days Print Language: Ivorian Disposition Disposition: Home, Self Care
--- NOTE | 2024-05-26 20:13 | US_ITS ---
STUDY: FIRST TRIMESTER OBSTETRICAL ULTRASOUND REASON FOR EXAM: Female, 33 years old Vaginal bleeding LMP: TECHNIQUE: Transvaginal TECHNICAL QUALITY: Adequate. PRIOR ULTRASOUND: None. FINDINGS: There is visualization of a single gestational sac in a normal intrauterine position. The mean sac diameter (MSD) measures 1.78 cm, indicating an estimated gestational age (EGA) of 6 weeks, 5 days. The gestational sac shape is within normal limits. There is a visualized yolk sac. The yolk sac measures 3.3 mm. The placenta is non-visualized. There is visualization of a live embryo. The crown-rump length (CRL) measures 0.97 centimeters, indicating an estimated gestational age (EGA) of 7 weeks, 1 days. There is demonstrated cardiac activity with a heart rate of 152 bpm. The estimated gestation age (EGA) by LMP is 7 weeks, 6 days. The estimated date of delivery (ANNIE) by LMP is January 06, 2025. The estimated gestation age (EGA) by US is 7 weeks, 0 days. The estimated date of delivery (ANNIE) by US is January 12, 2025. The uterus measures 10.3 x 8.1 x 6.1 cm. There is a small anechoic collection adjacent to the gestational sac most consistent with subchorionic bleed There is no demonstrated uterine fibroid. The cervix is closed. Normal right ovary is not visualized. There is no adnexal mass The left ovary measures 3.9 x 2.2 x 1.6 cm. There is a cyst measuring 1.5 x 1.6 cm likely corpus luteum. There is no visualized left adnexal mass or complex lesion. There is no fluid in the cul de sac. US/Transvaginal w/Preg US IMPRESSION: Findings consistent with viable intrauterine gestation approximately 7 weeks gestational age. Small subchorionic bleed Small left ovarian cyst likely corpus luteum Electronically Signed: Ant Gonsalez MD at 22:50 EST Reading Location ID and State: [facility] / [place] Tel , Service support ,
[2024-05-26 20:32] LABS: Absolute Lymphocyte Count 1.63 X10^3/uL (0.83-4.51); Absolute Neutrophil Count 6.1 X10^3/uL (2.0-7.7); Basophil# 0.03 X10^3/uL; Basophil% 0.4 % (0-1); Eosinophil# 0.08 X10^3/uL; Hemoglobin 12.9 g/dL (12.0-15.0); Lymphocyte # 1.63 X10^3/ul (0.83-4.51); Lymphocyte % 19.5 % (19-41); Mean Corp Hgb Conc 32.3 g/dL (32-36); Mean Corpuscular Hgb 29.9 pg (27.0-32.0); Mean Corpuscular Volume 92.6 fL (81-99); Mean Platelet Vol. 9.4 fl (6.2-12.0); Monocyte# 0.55 X10^3/uL; Monocyte% 6.6 % (0-10); NRBC Flagged by Analyzer 0 % (0-5); Neutrophil # 6.05 X10^3/uL (2.7-7.7); Platelet Count 230 K/mm3 (150-450); RBC Distribution Width CV 15.3 % (11.6-14.6); RBC Distribution Width SD 52.8 fl (35.1-43.9); Red Blood Count 4.32 M/mm3 (4.2-5.4); White Blood Count 8.4 K/mm3 (4.4-11.0)
[2024-05-26] MEDS: 0.9% Normal Saline (1000mL) 1,000 ML 999 ML IV (20:43)
[2024-05-26 20:48] LABS: Anion Gap 6 (5-15); BUN 12 mg/dL (7-18); BUN/Creat Ratio 17.4 RATIO (10-20); Calcium,Total 8.9 mg/dL (8.5-10.1); Chloride 107 mmol/L (98-107); Creatinine, Serum 0.69 mg/dL (0.55-1.02); EST Glomerular Filtration Rate 102 mL/min (>60); Est Glom Filt Rate - Afr Amer 124 mL/min (>60); Estimated Creatinine Clearance 126.04 ml/min; Glucose 89 mg/dL (74-106); Potassium 3.5 mmol/L (3.5-5.1); Sodium Level 138 mmol/L (136-145)
[2024-05-26 21:02] LABS: Bacteria 0 SEEN /hpf (None Seen); Mucous, Urine 0 SEEN /hpf (<or=2+)
[2024-05-26 21:05] LABS: Color, Urine Yellow (Yellow); Glucose, Dipstick Normal (Normal); Ketone-Dipstick 50 mg/dl (Negative); Leukocyte Esterase-Dipstick Negative /ul (Negative); Nitrite-Dipstick Negative (Negative); Occult Blood-Urine 250 /ul (Negative); Protein-Dipstick 30 mg/dl (Negative); Urine Bilirubin Dipstick Negative (Negative); Urine Clarity Cloudy (Clear); Urine Urobilinogen Normal (Normal)
[2024-05-26 21:13] LABS: Red Blood Cells-Urine 25-50 SEEN /hpf (0-5); White Blood Cells 0-5 SEEN /hpf (0-5)
[2024-05-26 21:14] LABS: Squamous Epithelial Cells - UA 0-5 SEEN /hpf (5-10)
[2024-05-26 21:16] LABS: hCG Titer Quant., Serum 43884 mIU/mL (1-3)
[2024-05-26 21:30] VITALS: BP 125/58; PULSE 65; RESP 16; O2SAT 98
[2024-05-26 23:00] VITALS: BP 116/70; PULSE 64; RESP 16; O2SAT 98
[2024-05-26 23:22] VITALS: BP 116/70; PULSE 64; RESP 16; TEMP 36.9; O2SAT 98
== END 2024-05-26 23:50 | disposition home or self-care (01) ==
PROVIDERS: Emergency Provider Emergency Medicine; PCP Family Medicine; Visit Provider Emergency Medicine
DX: O20.0 Threatened abortion (principal); Z87.891 Personal history of nicotine dependence; Z3A.01 Less than 8 weeks gestation of pregnancy; Z86.711 Personal history of pulmonary embolism
CPT/HCPCS: 76817; 80048; 81001; 84702; 85025; 96360; 96361; 99282; A4216

== ENCOUNTER 2024-08-07 08:44 | Emergency (ER) | payer MEDICAID, SELFPAY ==
[2024-08-07 08:44] VITALS: BP 132/73; PULSE 72; RESP 14; TEMP 36.4; O2SAT 100; BMI 40.1
--- NOTE | 2024-08-07 09:27 | EX.ED.DYSGE1 ---
HPI History of Present Illness Chief Complaint: Headache Informant: patient Narrative Narrative: Patient is a 33-year-old female currently 17 weeks 's with history of PE (on Lovenox twice daily) presenting with headache for 3 days as well as nausea and vomiting. She describes the headache as throbbing and pressure in the front of her head and sometimes radiates to her temples. She denies any head injuries. Denies any vision changes. Does not report any fever. Does report a lot of fatigue. Notes that her nausea has been at a all-time high for the past 2 days. States he threw up 6 times yesterday. She is been taking Tylenol at home and only has relief for 1 to 2 hours before her headache comes back. She is concerned that she is dehydrated. She notes over the past week she is urinating less than what she thinks she is taking and. She is been very fatigued. She has had multiple sick contacts with her children having influenza and a GI bug. She states coworkers had COVID last week. She does report some nasal congestion. Denies any sore throat. Denies any abdominal pain. Denies any dysuria. Denies any vaginal bleeding or leakage of fluids. Follows with [facility] in [place]. Mary Kay Ching. Is planning on delivering at [facility]. Patient is a bariatric patient with history of gastric sleeve [facility] Medical History Chronic neck and back pain Asthma Anemia Shoulder pain Hx pulmonary embolism Home Medications ?Medication ?Instructions ?Recorded ?Last Taken ?Type 1 unit PO BID 05/17/24 Unknown History enoxaparin 40 mg/0.4 mL 40 mg subcut QHS 05/17/24 05/25/24 History subcutaneous syringe ondansetron 4 mg disintegrating 4 mg PO Q6H PRN nausea and 08/07/24 Unknown Rx tablet vomiting #14 tabs Allergy/AdvReac Type Severity Reaction Status Date / Time erythromycin lactobionate Allergy Unknown Verified 08/07/24 08:45 (From Erythrocin) menthol (From BenGay) Allergy Hives Verified 08/07/24 08:45 methyl salicylate (From Allergy Hives Verified 08/07/24 08:45 BenGay) promethazine HCl (From Allergy Unknown Verified 08/07/24 08:45 Phenergan) Family History Other Heart disease Surgical History Hx of section Hx of tonsillectomy H/O gastric sleeve Social History Smoking Status: Former smoker ROS ROS ED Constitutional Constitutional ED: Reports chills; Denies fever(s) Eyes Eyes: Denies blurry vision or change in vision ENT ENT ED: Reports other Details: Reports ears have been itchy. Congestion ; Denies ear pain or sore throat Cardiovascular Cardiovascular: Denies chest pain Respiratory/Chest Respiratory/Chest: Denies cough or dyspnea Gastrointestinal Gastrointestinal: Reports nausea and vomiting; Denies abdominal pain, constipation or diarrhea Genitourinary Genitourinary ED: Reports other Details: Decreased urination ; Denies dysuria, hematuria or urinary frequency Musculoskeletal Musculoskeletal: Denies arthralgias or myalgias Integumentary Denies rash Neurologic Neurologic: Reports headache(s); Denies paresthesias or weakness Hematologic/Lymphatic Hematologic/Lymphatic: Reports easy bleeding, easy bruising and other Details: On subcu Lovenox EXAM Physical Exam Const Vital Signs: 08/07/24 08:44 08/07/24 10:52 08/07/24 11:21 Temperature 97.5 F L Temperature Source Temporal Pulse Rate 72 84 62 Respiratory Rate 14 16 18 Blood Pressure 132/73 H 109/53 L 124/70 H Blood Pressure Mean 92 71 88 Pulse Ox 100 97 100 Oxygen Delivery Method Room Air Room Air Room Air 08/07/24 13:21 Temperature 98.1 F Temperature Source Pulse Rate 73 Respiratory Rate 18 Blood Pressure 116/78 Blood Pressure Mean 90 Pulse Ox 100 Oxygen Delivery Method Positive well nourished and well developed General Appearance ED: well developed and NAD HEENT Reports TM's clear and moist mucous membranes HEENT Narrative: Mild injection of the posterior oropharynx. Normal uvula. No tonsillar hypertrophy or exudate present. Tympanic Membrane ED: Yes TM's clear Eyes PERRL Neck no lymphadenopathy and supple Neck Narrative: No nuchal rigidity Chest Wall inspection of chest normal and palpation of chest normal Resp normal respiratory effort and clear to auscultation bilaterally Cardio regular rate, regular rhythm and no murmurs GI normal to inspection, nondistended, normoactive bowel sounds and non-tender GI Narrative: Uterine fundus palpated just below the level of the umbilicus Auscultation: normoactive bowel sounds Palpation: soft Extremity normal to inspection General Extremety ED: Negative for edema General Extremity: Negative for edema Neuro oriented x3 Sensorium / Orientation: alert Motor Exam: Negative for general weakness Psych mental status grossly normal Skin no rashes or lesions noted and no wounds MDM MDM MDM Narrative Medical decision making narrative: Patient is 17 weeks evaluated for 3 days of headache as well as nausea and vomiting. Differential includes viral syndrome, influenza, COVID, dehydration, urinary tract infection. Vital signs largely normal. Blood pressure minimally elevated 132/73 but will obtain repeat. Lower suspicion for help/preeclampsia given that she is 17 weeks . Patient is anticoagulated so lower suspicion for dural venous sinus thrombosis. Patient denies any head injury and does not have any focal findings on her neurologic exam as well as suspicion for intracranial hemorrhage. At this time I do not think CT imaging is indicated. Patient is given IV fluids, Reglan, Benadryl and Tylenol for symptoms. Will obtain lab work and reevaluate. Patient is improvement of symptoms. Blood pressure normal in the emergency room. She has normal heart tones (162). Urinalysis does show 15 ketones but not consistent with infection. CBC and CMP largely normal., Flu, COVID and RSV swab negative. Will give patient a second liter of fluid. Will be discharged home. She is comfortable with this plan. She states her headache is continuing to improve. Suspect that there might be component of dehydration. Will also discharge home with a prescription for Zofran. Is given return precautions. She verbalized agreement understand this plan. Encouraged follow-up with her [facility] Lab Data Attestation: I reviewed the patient's lab results. Labs: Laboratory Results - last 24 hr 08/07/24 08/07/24 09:20 09:48 WBC 7.1 RBC 4.20 Hgb 12.9 Hct 39.5 MCV 94.0 MCH 30.7 MCHC 32.7 RDW Std Deviation 46.2 H RDW Coeff of Geoff 13.5 Plt Count 193 MPV 9.5 Immature Gran % (Auto) 0.600 Neut % (Auto) 76.5 H Lymph % (Auto) 15.0 L [place] % (Auto) 6.6 Eos % (Auto) 1.0 Baso % (Auto) 0.3 Absolute Neuts (auto) 5.4 Absolute Lymphs (auto) 1.06 Nucleated RBC % 0 Sodium 137 Potassium 3.7 Chloride 107 Carbon Dioxide 23.0 Anion Gap 7 BUN 6 L Creatinine 0.64 Estim Creat Clear Calc 135.23 Est GFR (MDRD) Af Amer 136 Est GFR (MDRD) Non-Af 113 BUN/Creatinine Ratio 9.4 L Glucose 77 Calcium 8.8 Total Bilirubin 0.30 AST 18 ALT 15 Alkaline Phosphatase 49 Total Protein 6.8 Albumin 2.7 L Globulin 4.1 Albumin/Globulin Ratio 0.7 L Lipase 23 L Urine Color Yellow Urine Clarity Clear Urine pH 8.0 Ur Specific [place] 1.015 Urine Protein 15 H Urine Glucose (UA) Normal Urine Ketones 15 H Urine Occult Blood Negative Urine Nitrite Negative Urine Bilirubin Negative Urine Urobilinogen Normal Ur Leukocyte Esterase 25 H Urine RBC 0 SEEN Urine WBC 0-5 SEEN Ur Squamous Epith Cells 0-5 SEEN Urine Bacteria 0 SEEN Urine Mucus 0 SEEN Discharge Plan Triage Chief Complaint: Headache ED Provider: Nilsa Jarvis Dx/Rx/DC Orders Clinical Impression: Headache, Dehydration during , Nausea and vomiting Instructions: ED Dehydration (Adult), ED Headache Unspecified, ED Vomiting (Adult) Prescriptions: New ondansetron 4 mg tablet,disintegrating 4 mg PO Q6H PRN (Reason: nausea and vomiting) Qty: 14 0RF No Action enoxaparin 40 mg/0.4 mL syringe 40 mg subcut QHS 1 unit PO BID Primary Care Provider: ESTEFANIA AKINS Referrals: ESTEFANIA AKINS DO [Primary Care Provider] - Activity Restrictions/Additional Instructions: Continue to push fluids. Your lab work was largely normal and reassuring today. Please follow-up with your [facility]. Please return if you have progression worsening your symptoms. Continue to take Tylenol at home for headache. Print Language: Swedish Disposition Disposition: Home, Self Care Discharge Date/Time: 08/07/24 13:24
[2024-08-07] MEDS: 0.9% Normal Saline (1000mL) 1,000 ML 999 ML IV ×2 (09:28→12:19)
[2024-08-07] MEDS: Acetaminophen 325 MG Tablet 650 MG PO (09:28)
[2024-08-07] MEDS: Metoclopramide 10 MG/2 ML Vial IV (09:29)
[2024-08-07] MEDS: DiphenhydrAMINE 50 MG/ML Syringe 25 MG IV (09:29)
[2024-08-07 09:41] LABS: Absolute Lymphocyte Count 1.06 X10^3/uL (0.83-4.51); Absolute Neutrophil Count 5.4 X10^3/uL (2.0-7.7); Basophil# 0.02 X10^3/uL; Basophil% 0.3 % (0-1); Eosinophil# 0.07 X10^3/uL; Hematocrit 39.5 % (37-47); Hemoglobin 12.9 g/dL (12.0-15.0); Lymphocyte # 1.06 X10^3/ul (0.83-4.51); Mean Corp Hgb Conc 32.7 g/dL (32-36); Mean Corpuscular Hgb 30.7 pg (27.0-32.0); Mean Platelet Vol. 9.5 fl (6.2-12.0); Monocyte# 0.47 X10^3/uL; Monocyte% 6.6 % (0-10); NRBC Flagged by Analyzer 0 % (0-5); Neutrophil # 5.41 X10^3/uL (2.7-7.7); Neutrophil % 76.5 % (47-70); Platelet Count 193 K/mm3 (150-450); RBC Distribution Width CV 13.5 % (11.6-14.6); RBC Distribution Width SD 46.2 fl (35.1-43.9); White Blood Count 7.1 K/mm3 (4.4-11.0)
[2024-08-07 10:09] LABS: ALB/GLOB Ratio 0.7 RATIO (0.9-2.4); AST(SGOT) 18 U/L (15-37); Alanine Aminotransfer ALT/SGPT 15 U/L (13-56); Albumin, Serum 2.7 g/dL (3.2-5.0); Alkaline Phosphatase 49 U/L (45-117); Anion Gap 7 (5-15); BUN 6 mg/dL (7-18); BUN/Creat Ratio 9.4 RATIO (10-20); Calcium,Total 8.8 mg/dL (8.5-10.1); Chloride 107 mmol/L (98-107); Creatinine, Serum 0.64 mg/dL (0.55-1.02); EST Glomerular Filtration Rate 113 mL/min (>60); Est Glom Filt Rate - Afr Amer 136 mL/min (>60); Estimated Creatinine Clearance 135.23 ml/min; Globulin 4.1 g/dL (2.2-4.2); Glucose 77 mg/dL (74-106); Lipase 23 U/L (73-393); Potassium 3.7 mmol/L (3.5-5.1); Protein, Total 6.8 g/dL (6.4-8.2); Sodium Level 137 mmol/L (136-145)
[2024-08-07 10:11] LABS: Bacteria 0 SEEN /hpf (None Seen); Color, Urine Yellow (Yellow); Glucose, Dipstick Normal (Normal); Ketone-Dipstick 15 mg/dl (Negative); Leukocyte Esterase-Dipstick 25 /ul (Negative); Mucous, Urine 0 SEEN /hpf (<or=2+); Nitrite-Dipstick Negative (Negative); Occult Blood-Urine Negative /ul (Negative); Protein-Dipstick 15 mg/dl (Negative); Specific Gravity, Urine 1.015 (1.002-1.030); Urine Bilirubin Dipstick Negative (Negative); Urine Clarity Clear (Clear); Urine Urobilinogen Normal (Normal)
[2024-08-07 10:17] LABS: Squamous Epithelial Cells - UA 0-5 SEEN /hpf (5-10)
[2024-08-07 10:18] LABS: Red Blood Cells-Urine 0 SEEN /hpf (0-5); White Blood Cells 0-5 SEEN /hpf (0-5)
[2024-08-07 10:52] VITALS: BP 109/53; PULSE 84; RESP 16; O2SAT 97
[2024-08-07 11:21] VITALS: BP 124/70; PULSE 62; RESP 18; O2SAT 100
[2024-08-07 13:21] VITALS: BP 116/78; PULSE 73; RESP 18; TEMP 36.7; O2SAT 100
== END 2024-08-07 13:24 | disposition home or self-care (01) ==
PROVIDERS: Emergency Provider Emergency Medicine; PCP Family Medicine; Visit Provider Emergency Medicine
DX: O99.891 Other specified diseases and conditions complicating pregnancy (principal); O99.282 Endocrine, nutritional and metabolic diseases complicating pregnancy, second trimester; O21.9 Vomiting of pregnancy, unspecified; R51.9 Headache, unspecified; E86.0 Dehydration; Z3A.17 17 weeks gestation of pregnancy; Z87.891 Personal history of nicotine dependence; Z86.711 Personal history of pulmonary embolism
CPT/HCPCS: 80053; 81001; 83690; 85025; 87631; 96361; 96374; 96375; 96376; 99283; A4216